=== PATIENT | male | born 1965 | race Caucasian/White ===

== ENCOUNTER 2020-06-21 06:10 | Inpatient (IN) | payer BC, SELFPAY ==
[2020-06-21] VITALS (7 sets, daily range): BP systolic 89–120; BP diastolic 55–74
[~2020-06-21] VITALS: Ht 170.2 cm; Wt 83.9 kg
--- NOTE | 2020-06-21 06:17 | NUR ---
PT BIBA BLS. TAKEN TO BED 9
[2020-06-21] MEDS ORDERED: HYDROmorphone PFS 2 MG/ML SYR IVP ONE (06:20)
[2020-06-21] MEDS ORDERED: ONDANSETRON 4 MG/2 ML VIAL IVP ONE (06:20)
--- NOTE | 2020-06-21 06:27 | NUR ---
EKG PERFORMED AT BEDSIDE. EKG READS SINUS TACHYCARDIA @ 111
--- NOTE | 2020-06-21 06:30 | NUR ---
Pt c/o generalized body pain and right shoulder pain x1 year but worsened recently. Denies previous medical hx, states he has not seen a doctor regarding condition. Denies taking any medications. NKA. A/Ox4, ambulatory with steady gait.
[2020-06-21] MEDS ORDERED: AZITHROMYCIN 500 MG in DEXTROSE 5% 250 ML IV ONE (06:40)
[2020-06-21] MEDS: NACL 0.9% 2,000 ML IV SCH ×2 (06:52→07:36)
[2020-06-21 06:55] LABS: MEAN CORPUSCULAR HEMOGLOBIN 29 pg (27-31); MEAN CORPUSCULAR HGB CONC 33 g/dL (33-37); MEAN CORPUSCULAR VOLUME 89.4 fL (80-94); PLATELET COUNT (AUTO) 81 K/uL (140-450); RED CELL DISTRIBUTION WIDTH 16.9 % (11.6-13.7)
--- NOTE | 2020-06-21 06:55 | NUR ---
PATIENT VERBALIZED UNABLE TO GIVE URINE SAMPLE AT THIS TIME. URINAL LEFT AT BEDSIDE.
[2020-06-21] MEDS ORDERED: VANCOMYCIN PER PHARMACY MC PRN ×3 (07:05→09:35)
[2020-06-21] MEDS ORDERED: cefTRIAXone 1,000 MG VIAL ONE (07:10)
[2020-06-21] MEDS ORDERED: VANCOMYCIN 1GM/DEXT 5% PREMIX 200 ML IV ONE (07:10)
--- NOTE | 2020-06-21 07:16 | NUR ---
REPORT AND CONTINUATION OF CARE RECEIVED FROM TAMMIE FULLER.
[2020-06-21 07:21] LABS: WHITE BLOOD COUNT (AUTO) 25.9 K/uL (4.8-10.8)
[2020-06-21 07:22] LABS: HEMATOCRIT 64.4 % (36-52); HEMOGLOBIN 21.2 g/dL (12.0-18.0)
[2020-06-21 07:28] LABS: LYMPHOCYTES % (MANUAL) 4 % (20-46); MONOCYTES % (MANUAL) 4 % (5-12)
[2020-06-21 07:29] LABS: EOSINOPHILS % (MANUAL) 3 % (0-4)
--- NOTE | 2020-06-21 07:30 | NUR ---
PT SITTING IN POSITION OF COMFORT. EDUCATION COUNSELOR IN PLACE. PT STATES PAIN 2/10. NO OBVIOUS DISTRESS NOTED. IV ABX INITATED. BED LOCKED IN LOWEST POSITION, SIDE RAILS X 1, CALL LIGHT IN REACH.
[2020-06-21 07:37] LABS: ANION GAP 21.5 (8-16); CARBON DIOXIDE 21.1 mmol/L (21-32); POTASSIUM 5.6 mmol/L (3.5-5.1); TOTAL BILIRUBIN 6.3 mg/dL (0.0-1.0)
[2020-06-21 07:46] LABS: CREATININE 5.2 mg/dL (0.6-1.3)
[2020-06-21] MEDS ORDERED: VANCOMYCIN 1,000 MG VIAL ONE (07:58)
[2020-06-21 07:59] LABS: PROTHROMBIN TIME 20.3 secs (10.8-13.4)
--- NOTE | 2020-06-21 08:01 | NUR ---
SERVICE DISMANTLER DISCONNECTED PT FROM IVF AND POSTDOCTORAL RESEARCH ASSOCIATE AND TRANSPORTED VIA WHEELCHAIR TO CT.
--- NOTE | 2020-06-21 08:15 | NUR ---
PT RETURNED FROM CT, PLACED BACK ONTO SKILL LABOR AND IVF. IV ABX INITIATED AT THIS TIME.
--- NOTE | 2020-06-21 08:25 | NUR ---
PT STATES HE IS UNABLE TO PROVIDE URINE SAMPLE RIGHT NOW. PT STATES LAST URINATION 06/20 0400. ERMD MADE AWARE, STRAIGHT CATH ORDER PLACED.
--- NOTE | 2020-06-21 08:30 | NUR ---
PT SITTING IN POSITION OF COMFORT. AGRICULTURAL SPECIALIST AND OXYGEN IN PLACE @ 2L VIA N/C. NO DISTRESS NOTED, ALL PT NEEDS MET AT THIS TIME. BED LOCKED IN LOWEST POSITION, SIDE RAILS X 1, CALL LIGHT IN REACH.
--- NOTE | 2020-06-21 08:39 | NUR ---
PT STATES HE DOES NOT WANT A STRAIGHT CATHETHER PERFORMED AT THIS TIME; PT VERBALIZED HE WILL TRY TO PROVIDE A URINE SAMPLE. SIDE RAIL LOWERED AND ASSISTED PT TO THE LEFT SIDE WITH URINAL PROVIDED. STAINED GLASS PAINTER IN PLACE. BED LOCKED IN LOWEST POSITION, SIDE RAILS X 1, CALL LIGHT IN REACH.
--- NOTE | 2020-06-21 08:45 | NUR ---
PT PRESENTS SITTING IN BED WITH URINAL ATTEMPTING TO PROVIDE URINE SAMPLE. NO URINE NOTED IN URINAL; PT STATES HE NEEDS AN ADDITIONAL 5 MINUTES. PRIVACY PROVIDED. DIRECTOR OF GROUP SALES IN PLACE. BED LOCKED IN LOWEST POSITION, SIDE RAILS X 1, CALL LIGHT IN REACH. PT ACKNOWLEDGED NEED FOR STRAIGHT CATH IF HE IS UNABLE TO PROVIDE URINE.
--- NOTE | 2020-06-21 08:55 | NUR ---
PT REQUESTED TO UTILIZE RESTROOM FOR URINE. PT ASSISSTED VIA WHEELCHAIR. UNABLE TO OBTAIN URINE AT THIS TIME
[2020-06-21] MEDS ORDERED: VANCOMYCIN 1GM/DEXT 5% PREMIX 200 ML IV SCH (09:00)
--- NOTE | 2020-06-21 09:10 | NUR ---
PT UNABLE TO URINATE AT THIS TIME. PT PLACED ONTO WHEELCHAIR AND ASSISTED BACK ONTO BED. WOOD HANDLER AND IV ABX CONTINUED. BED LOCKED IN LOWEST POSITION, SIDE RAILS X 1, CALL LIGHT IN REACH. PT ADVISED OF NEED FOR GODINEZ CATHETER.
--- NOTE | 2020-06-21 09:15 | NUR ---
PT SITTING IN POSITION OF COMFORT. CORRECTIVE THERAPY AIDE TEACHER AND OXYGEN IN PLACE @ 2L VIA N/C. NO DISTRESS NOTED, ALL PT NEEDS MET AT THIS TIME. BED LOCKED IN LOWEST POSITION, SIDE RAILS X 1, CALL LIGHT IN REACH.
[2020-06-21] MEDS ORDERED: NACL 0.9% 1,000 ML IV SCH (09:25)
[2020-06-21] MEDS ORDERED: LORazepam 2 MG/ML VIAL IM/IVP PRN (09:25)
[2020-06-21] MEDS ORDERED: DOCUSATE SODIUM 100 MG GELCAP PO PRN (09:25)
[2020-06-21] MEDS ORDERED: MORPHINE SULFATE 2 MG/ML SYR IVP PRN (09:25)
[2020-06-21] MEDS ORDERED: ZOLPIDEM 5 MG TAB PO PRN (09:25)
[2020-06-21] MEDS ORDERED: ONDANSETRON 4 MG/2 ML VIAL IVP PRN (09:25)
--- NOTE | 2020-06-21 10:02 | NUR ---
DR. SOLIZ AT BEDSIDE
--- NOTE | 2020-06-21 10:13 | NUR ---
# 16 FR Bailey catheter with 10 ml utilizing sterile technique. Immediate return of 425 ml CLEAR/DARK RED urine noted. Bedside drainage bag placed below level of bladder. Urine sample collected and sent to lab. Pt tolerated procedure WELL.
--- NOTE | 2020-06-21 10:15 | NUR ---
DONY, MEDICAL STUDENT IS EVALUATING PATIENT AT BEDSIDE.
--- NOTE | 2020-06-21 10:20 | NUR ---
PT RESTING WITH BOTH EYES OPEN. OCCUPATIONAL HEALTH RN AND OXYGEN REMAINS IN PLACE @ 2L VIA N/C. NO OBVIOUS DISTRESS NOTED. ALL PT NEEDS MET AT THIS TIME. BED LOCKED IN LOWEST POSITION, SIDE RAILS X 1, CALL LIGHT IN REACH.
[2020-06-21] MEDS ORDERED: SODIUM ZIRCONIUM CYCLOSILICATE 10 GM POWD.PACK PO SCH (10:25)
[2020-06-21 10:27] LABS: FREE T4 (FREE THYROXINE) 1.5 ng/dL (0.76-1.46); MAGNESIUM 2.3 mg/dL (1.8-2.4); THYROID STIMULATING HORMONE 2.28 uIU/mL (0.34-3.74)
--- NOTE | 2020-06-21 10:46 | NUR ---
LAB AT BEDSIDE
[2020-06-21] MEDS ORDERED: AZITHROMYCIN 500 MG INJ VIAL IV ONE (10:52)
--- NOTE | 2020-06-21 11:00 | NUR ---
ATTEMPTED TO CONTACT TAMMIE HILARIO FOR REPORT. NO ANSWER AT THIS TIME.
--- NOTE | 2020-06-21 11:14 | NUR ---
PT RESTING WITH BOTH EYES OPEN. INSPECTOR WATCH ASSEMBLY AND OXYGEN REMAINS IN PLACE @ 2L VIA N/C. NO OBVIOUS DISTRESS NOTED. PT ADVISED OF STATUS TO BE TRANSPORTED TO TELEMETRY SHORTLY. ALL PT NEEDS MET AT THIS TIME. BED LOCKED IN LOWEST POSITION, SIDE RAILS X 1, CALL LIGHT IN REACH.
--- NOTE | 2020-06-21 11:14 | NUR ---
YAMINI, CHARGE NURSE MADE AWARE OF ATTEMPTED CONTACTS WITH YANELIS. CHARGE NURSE ADVISED OF 10 MINUTE ETA FOR REPORT.
[2020-06-21 11:16] LABS: CHOL/HDL RATIO 6.8 (1-4.5)
[2020-06-21 11:24] LABS: BILIRUBIN,URINE 2+ (NEGATIVE); BLOOD, URINE 2+ (NEGATIVE); COLOR,URINE BROWN (YELLOW); LEUKOCYTE ESTERASE ,URINE NEGATIVE (NEGATIVE); NITRITE, URINE POSITIVE (NEGATIVE); UGLUCOSE NEGATIVE (NEGATIVE)
--- NOTE | 2020-06-21 11:27 | NUR ---
ATTEMPTED TO CONTACT YANELIS VIA TELEPHONE, NO ANSWER AT THIS TIME.
--- NOTE | 2020-06-21 11:35 | NUR ---
CHARGE NURSE ADVISED TO PROVIDE REPORT TO TAMMIE HILARIO AT BEDSIDE.
[2020-06-21 11:52] LABS: APPEARANCE,URINE HAZY (CLEAR)
[2020-06-21 11:53] LABS: URINE AMORPHOUS URATE 1+ /HPF (None Seen); WBC,URINE 0-5 /HPF (0-5)
[2020-06-21 11:56] LABS: BARBITURATE, URINE NEGATIVE ng/ml (NEG <=200); BENZODIAZEPINE, URINE NEGATIVE ng/mL (NEG <=200); CANNABINOID, URINE NEGATIVE ng/mL (NEG <=50); COCAINE, URINE NEGATIVE ng/mL (NEG <=300); OPIATE, URINE NEGATIVE ng/mL (NEG <=2000); PHENCYCLIDINE SCREEN,URINE NEGATIVE ng/mL (NEG <=25)
--- NOTE | 2020-06-21 12:00 | NUR ---
RECEIVED PT FROM ER NURSE, PT IS AOX4, AMBULATED TO THE BED, GODINEZ CATHETER IN PLACE, IV LINE NOTED ON THE RT AC G. 20 WITH AZITHROMYCIN INFUSING, ON O2 2L NC SATURATING AT 93%, PT DENIES PAIN AND NO SIGN OF DISTRESS NOTED AND WILL CONTINUE TO MONITOR PT.
--- NOTE | 2020-06-21 12:00 | NUR ---
Patient will be admitted to care of DR. SMART. Admited to TELEMETRY. Will go to room 116. Belongings list completed. Report (bedside) to TAMMIE HILARIO outside room 116.
--- NOTE | 2020-06-21 12:30 | NUR ---
MRSA SWAB DONE TO PT AND SAMPLE WAS SENT TO LAB.
[2020-06-21 12:51] LABS: HEMATOCRIT 58.9 % (36-52); HEMOGLOBIN 19.3 g/dL (12.0-18.0); MEAN CORPUSCULAR HEMOGLOBIN 29 pg (27-31); MEAN CORPUSCULAR HGB CONC 33 g/dL (33-37); MEAN CORPUSCULAR VOLUME 89.4 fL (80-94); PLATELET COUNT (AUTO) 63 K/uL (140-450); RED BLOOD CELL COUNT(AUTO) 6.59 MIL/uL (4.20-6.10); RED CELL DISTRIBUTION WIDTH 17.1 % (11.6-13.7); WHITE BLOOD COUNT (AUTO) 20.9 K/uL (4.8-10.8)
--- NOTE | 2020-06-21 13:00 | NUR ---
PT IS DESATURATING TO 87% AND O2 WAS INCREASED TO 5L NC AND DR. SMART WAS INFORMED, PT IS SATURATING AT 92%, WILL CONTINUE TO MONITOR PT.
[2020-06-21 13:45] LABS: LYMPHOCYTES % (MANUAL) 3 % (20-46); MONOCYTES % (MANUAL) 4 % (5-12)
[2020-06-21 13:47] LABS: EOSINOPHILS % (MANUAL) 4 % (0-4)
[2020-06-21 13:57] LABS: URINE TOTAL PROTEIN 178.3 mg/dL (0-12)
--- NOTE | 2020-06-21 14:51 | NUR ---
RECEIVED A CRITICAL LAB VALUE OF LACTIC ACID 3.2, DR. SMART WAS INFORMED.
[2020-06-21] MEDS: DEXT 5% / NACL 0.9% 500 ML IV SCH ×2 (16:05→20:09)
[2020-06-21] MEDS ORDERED: PHYTONADIONE 10 MG in NACL 0.9% 50 ML IV SCH (16:30)
--- NOTE | 2020-06-21 16:35 | NUR ---
PT WAS TRANSFERRED TO ICU FOR CLOSE MONITORING PRE MD ORDER. REPORT WAS GIVEN TO RNKALANI, PT'S V/S ARE BP IS 98/57, TEMP IS 98, PULSE IS 111, RESPIRATION IS 20 AND O2 SATURATION IS AT 91%, PT DENIES PAIN AND NO SIGN OF DISTRESS NOTED.
--- NOTE | 2020-06-21 16:40 | NUR ---
TRANSFER OF CARE REPORT RECEIVED FROM YANELIS CHO. PATIENT VITAL SIGNS ARE BP: 89/54, HR: 99 SP02: 90% 5L NC. PATIENT DENIES ANY DIZZINESS OR WEAKNESS AT THIS TIME. NO PAIN REPORTED. PATIENT RESPIRATIONS ARE EVEN AND SLIGHTLY LABORED. PATIENT STATES HE IS HAVING ACID REFLUX PAINS. 20G TO RIGHT AC WITH D5 0.9NS RUNNING AT 150ML. GODINEZ CATHETER TO GRAVITY WITH DARK BROWN/RED URINE. SKIN IN TACT. AAOX4. GCS 15.
[2020-06-21] MEDS ORDERED: ASPIRIN 81 MG TAB.CHEW PO SCH (17:00)
--- NOTE | 2020-06-21 17:00 | NUR ---
MD SMART MADE AWARE REGARDING BP OF 89/55, NO FURTHER ORDERS AT THIS TIME
[2020-06-21] MEDS: LACTULOSE 20 GM/30 ML UDC PO SCH ×2 (17:21→20:22)
--- NOTE | 2020-06-21 18:57 | NUR ---
NAOMIE SMART 500ML D5 0.9 NS BOLUS, ORDER CARRIED OUT AT THIS TIME
[2020-06-21] MEDS ORDERED: DEXT 5% / NACL 0.9% 500 ML IV SCH (19:00)
--- NOTE | 2020-06-21 19:30 | NUR ---
RECEIVED BEDSIDE REPORT FROM DAY RN. PT IS AAOX4. RESPIRATIONS SLIGHTLY LABORED ON NC 5L SAT 90%. LUNG SOUNDS ARE GEORGE DIMINISHED. IV ON RC 20G CURRENTLY BOLUS OF D5NS INFUSING FOR BP IN LOW 90S AND HIGH 80S. AFTER BOLUS WILL CONT WITH D5 0.9NS AT 150ML. GODINEZ CATHETER TO GRAVITY WITH DARK BROWN/RED URINE. SKIN IN TACT. PT IS SKIN IS WARM TO TOUCH APPEARS JAUNDICE AND YELLOW SCLERA. PT DX SEPSIS RENAL FAILURE AND LIVER MASS. TRACY IS NEG PCR PENDING. POC REVIEWED WITH PT. SAFETY MEASURES ARE IN PLACE. CALL LIGHT IS WITHIN REACH. WILL CONTINUE TO MONITOR.
[2020-06-21] MEDS ORDERED: PIPERACILLIN/TAZOBACTAM 2.25 GM VIAL IV ONE (20:12)
[2020-06-21] MEDS: PIPERACILLIN/TAZOBACTAM 2.25 GM in DEXTROSE 5% 50 ML IV SCH (20:22)
[2020-06-21] MEDS: SENNA 8.6 MG TAB PO SCH (20:22)
--- NOTE | 2020-06-21 20:22 | NUR ---
SAI MEDICATION GIVEN PER ORDERS. MED EDUCATION GIVEN. BP 96/66 HR 111 SAT 91% RR 24.
[2020-06-21] MEDS ORDERED: metroNIDAZOLE 250 MG/NS PREMIX 50 ML IV SCH (21:00)
--- NOTE | 2020-06-21 21:00 | NUR ---
INCREASED LABORED BREATHING SAT 90% PT PLACED ON OXIMIZER AT 8L. BP REMAINS LOW 96/61 HR 102. MAP>60 ALL NEEDS MET. CALL LIGHT IS WITHIN REACH.
--- NOTE | 2020-06-21 21:30 | NUR ---
DR HARDY IN TO ASSESS PT. NEW ORDER TO D/C FLAGYL.
--- NOTE | 2020-06-21 21:42 | NUR ---
CALLED PICC LINE SERVICE AT [phone] LEFT VOICE MAIL WITH PATIENT NAME STEPHEN BONILLA ROOM # 130A FROM [facility] ORDER FOR PICC LINE PLACEMENT. CONSENT IS IN CHART AND LEFT OUR CALL BACK NUMBER.
--- NOTE | 2020-06-21 21:50 | NUR ---
FAMILY AT WINDOW SIDE, DAUGHTER, GF AND EX . ALL NEEDS MET.
[2020-06-21] MEDS: ACETAMINOPHEN 325 MG TAB PO PRN (22:01)
--- NOTE | 2020-06-21 22:10 | NUR ---
PAGED DR GIVENS FOR LOW BP 88/56 HR 104 PT'S BP BEEN IN HIGH 80S - LOW 90S PT WAS ALREADY GIVEN 500ML BOLUS WITH SOME IMPROVEMENT. PER MD CALL ER MD TO PLACE CENTRAL LINE AND BEGIN LEVO. WILL PAGED ER
--- NOTE | 2020-06-21 23:05 | NUR ---
DR MEDINA CAME AND EVALUATED PATIENT. CURRENT BP 96/55 HR 103 PER MD MONITOR BP IF IT DROPS BELOW SBP 90 OR IF MAP <60 CAN CALL TO INSERT CENTRAL LINE. OTHERWISE PT HAS ORDER FOR PICC LINE IN AM. WILL CONTINUE TO MONITOR.
[2020-06-21] MEDS ORDERED: NOREPINEPHRINE 8 MG in DEXTROSE 5% 250 ML IV PRN (23:25)
[2020-06-22] VITALS (21 sets, daily range): BP systolic 82–149; BP diastolic 46–88
[2020-06-22] MEDS: HYDROcodone/APAP 5/325 MG 1 TAB TAB PO PRN ×3 (01:13→23:07)
--- NOTE | 2020-06-22 01:13 | NUR ---
ADMIN PRN NORCO FOR PAIN. BP 96/60 HR 101. ALL SAFETY MEASURES ARE IN PLACE. CALL LIGHT IS WITHIN REACH.
[2020-06-22] MEDS: DEXT 5% / NACL 0.9% 500 ML IV SCH ×8 (01:36→22:52)
[2020-06-22] MEDS ORDERED: ALBUTEROL SULFATE/IPRATROPIU 3 ML SOL IH PRN (02:30)
--- NOTE | 2020-06-22 04:00 | NUR ---
VITAL SIGNS ARE STABLE BP REMAINS IN MID 90S MAP >60. PT RESTING IN BED. CALL LIGHT IS WITHIN REACH.
[2020-06-22] MEDS ORDERED: PIPERACILLIN/TAZOBACTAM 2.25 GM VIAL IV ONE (04:18)
[2020-06-22] MEDS: PIPERACILLIN/TAZOBACTAM 2.25 GM in DEXTROSE 5% 50 ML IV SCH ×3 (04:22→21:00)
--- NOTE | 2020-06-22 05:25 | NUR ---
PATIENT IS SITTING AT THE EDGE OF THE BED. ASSISTED PATIENT BACK INTO BED PT REMAINS ON OXIMIZER 10L SAT WELL 94%. ALL NEEDS MET. CALL LIGHT IS WITHIN REACH.
--- NOTE | 2020-06-22 06:05 | NUR ---
FOUND PT OFF FROM OXYMIZER. AND SITTING AT THE EDGE OF THE BED. SPO2 IN 50s. PLACED OXYMIZER BACK ON. SPO2 93%. RN NOTIFIED WILL CONTINUE TO MONITOR PT.
[2020-06-22 06:26] LABS: ANION GAP 19.1 (8-16); CARBON DIOXIDE 18.6 mmol/L (21-32); POTASSIUM 4.7 mmol/L (3.5-5.1)
[2020-06-22 06:32] LABS: MAGNESIUM 2.2 mg/dL (1.8-2.4); PHOSPHORUS 6.9 mg/dL (2.5-4.9)
--- NOTE | 2020-06-22 06:50 | NUR ---
PATIENT WITH ONE SMALL BM OCCULT BLOOD COLLECTED AND SENT TO LAB.
[2020-06-22 07:03] LABS: HEMOGLOBIN 19.4 g/dL (12.0-18.0); MEAN CORPUSCULAR HEMOGLOBIN 29 pg (27-31); MEAN CORPUSCULAR HGB CONC 32 g/dL (33-37); MEAN CORPUSCULAR VOLUME 90.9 fL (80-94); RED BLOOD CELL COUNT(AUTO) 6.61 MIL/uL (4.20-6.10); WHITE BLOOD COUNT (AUTO) 24.5 K/uL (4.8-10.8)
[2020-06-22] MEDS ORDERED: DEXT 5% / NACL 0.9% 500 ML IV SCH (07:05)
[2020-06-22 07:25] LABS: CREATININE 5.2 mg/dL (0.6-1.3)
--- NOTE | 2020-06-22 07:30 | NUR ---
GAVE BEDSIDE REPORT TO DAY RN. PT IN GUARDED CONDITION.
[2020-06-22] MEDS: NACL 0.9% 500 ML IV SCH ×2 (07:40→08:40)
--- NOTE | 2020-06-22 08:00 | NUR ---
RECEIVED BEDSIDE REPORT FROM TUBE SPLICER RN. PATIENT RESTING IN BED, AXOX4, APPEARS LETHARGIC. NO COMPLAINTS OF PAIN OR DISCOMFORT. ON 10L NC VIA OXIMIZER. RIGHT 20G AC PERIPHERAL IV, IVF RUNNING. GODINEZ CATHETER IN PLACE DRAINING. CHG CARE COMPLETE. WILL CONTINUE TO MONITOR.
[2020-06-22 08:08] LABS: AFP (TUMOR MARKER) <0.9 ng/mL (0.0-8.3)
[2020-06-22] MEDS ORDERED: VANCOMYCIN 1,000 MG in DEXTROSE 5% 250 ML IV SCH (09:00)
[2020-06-22] MEDS ORDERED: ASPIRIN 81 MG TAB.CHEW PO SCH (09:00)
[2020-06-22 09:11] LABS: PLATELET COUNT (AUTO) 42 K/uL (140-450)
[2020-06-22 09:12] LABS: LYMPHOCYTES % (MANUAL) 1 % (20-46); MONOCYTES % (MANUAL) 3 % (5-12)
--- NOTE | 2020-06-22 09:16 | NUR ---
PATIENT HAS BEEN SCREENED AND CATEGORIZED HIGH NUTRITION RISK. PATIENT WILL BE SEEN WITHIN 1-2 DAYS OF ADMISSION. 06/22/[address]
[2020-06-22] MEDS: LACTULOSE 20 GM/30 ML UDC PO SCH ×4 (09:32→17:52)
[2020-06-22] MEDS: SENNA 8.6 MG TAB PO SCH ×2 (09:33→21:00)
[2020-06-22 10:06] LABS: HEPATITIS A ANTIBODY IGM Negative (Negative); HEPATITIS B CORE AB TOTAL Negative (Negative); HEPATITIS B SURFACE ANTIBODY Non Reactive (.); HEPATITIS B SURFACE ANTIGEN Negative (Negative)
--- NOTE | 2020-06-22 10:23 | NUR ---
PER Jen BASS IF PT REALLY NEEDS IT, IT IS OK TO INSERT PICC.
--- NOTE | 2020-06-22 10:55 | NUR ---
MADE AWARE TO DR. GIVENS, PTS PLATELETS 42 AND HELD ASA. PER D/C ASA AND ADMIN. 1UNIT OF PLATELETS.
--- NOTE | 2020-06-22 11:39 | NUR ---
SOCIAL WORK NOTE: Patient's Orientation Unable To Assess Information Provided By NINFA RIVER - SIGNIFICANT OTHER Comments SW WAS UNABLE TO MEET PATIENT AT BEDSIDE. SW COMPLETED ASSESSMENT WITH PATIENT'S SIGNIFICANT OTHER. Mixing Machine Attendant, Realtionship and Phone Number NINFA RIVER SIGNIFICANT OTHER [phone] [facility] Power of Machine Quilt Stuffer No Does Patient Have a POLST No Identifying Problems No Social Work Triggers Is A Social Work Consult Needed No Mandate Report Filed No Explanation Of Identifying Problems PATIENT IS A 54-YEAR-OLD MALE ADMITTED FOR NEW ONSET RENAL FAILURE. PATIENT HAS NO REPORTED PMHX. Admitted From Home Pre-Admission Level Of Functioning Status Independent/Ambulatory Prior Resources/Services Used In Last 12 Months No Prior Resources Used Prior DME No Prior DME Used Dialysis Comments N/A Living Situation Apartment Lives W/Significant Other Patient Had Caregiver No Home Support No Caregiver Issues Financial Issues No Known Financial Issue Referral To The Financial Counselor Needed No Factors/Needs No D/C Needs Identified Pt/Rep Participated In Discharge Plan Yes Patient/Family Agress With Discharge Plan Yes Discharge Plan Comments TENTATIVE DISCHARGE PLAN IS FOR PATIENT TO RETURN HOME. DC Plan Status Initiated Addendum: 07/06/20 at 1006 by Samuel Kurtz SS MITESH CONTACTED PATIENT'S DAUGHTER, MARISOL REGARDING FAMILY MEETING [phone]. MARISOL REQUESTED A PHONE CALL FROM PHYSICIAN INSTEAD OF FAMILY CONFERENCE. MITESH NOTIFIED DR. GIVENS.
[2020-06-22] MEDS ORDERED: ALBUMIN HUMAN 25% 100 ML IV ONE (11:45)
[2020-06-22] MEDS: MIDODRINE 5 MG TAB PO SCH ×2 (12:37→18:41)
--- NOTE | 2020-06-22 13:00 | NUR ---
MEDICATIONS ADMINISTERED PER MD ORDERS. US ABD COMPLETED. PT IN NO PAIN AT THIS MOMENT.
[2020-06-22 13:13] LABS: ALBUMIN 1.4 g/dL (3.4-5.0); TOTAL BILIRUBIN 8.2 mg/dL (0.0-1.0)
[2020-06-22] MEDS ORDERED: PHYTONADIONE 10 MG in NACL 0.9% 50 ML IV SCH (14:00)
--- NOTE | 2020-06-22 16:26 | NUR ---
06/22/20 RD INITIAL ASSESSMENT COMPLETED PLEASE REFER TO NUTRITION ASSESSMENT UNDER CARE ACTIVITY FOR ESTIMATED NUTRITIONAL NEEDS. 1. CONTINUE NPO 2. PENDING FURTHER GI WORK 3. CONSIDER NUTRITION SUPPORT 4. RD TO FOLLOW-UP 2-3 DAYS, HIGH RISK NIKKI ESPINO, RD
--- NOTE | 2020-06-22 16:28 | NUR ---
SPOKE TO OPT SIGNIFICANT OTHER, PT NEXT OF KIN FROM FACE SHEET, BILL RIVER REGARDING DR ORDER FOR FFP AND PLATELETS, PER SIGNIFICANT OTHER TO CALL PT DAUGHTER MARISOL @ [phone] REGARDING THIS. BUT SIGNIFICANT OTHER IS CONSENTING TO THE PROCEDURE. CALLED DAUGHTER MARISOL, PER DAUGHTER SHE IS CONSENTING FOR PT TO RECEIVE FFP AND PLATELETS, ALL QUESTIONS ANSWERED.
[2020-06-22 16:30] LABS: FERRITIN 5370 ng/mL (30 - 400)
--- NOTE | 2020-06-22 17:05 | NUR ---
PT V/S BEGAN TO DECREASE LOWEST READING WAS 87/52, BEGAN LEVOPHED GTT TO 2MCG/MIN. WILL CONTINUE TO MONITOR.
[2020-06-22] MEDS: NOREPINEPHRINE 4 MG in DEXTROSE 5% 250 ML IV PRN (17:09)
--- NOTE | 2020-06-22 18:58 | NUR ---
IV PLASMA STARTED AND ADMINISTERED PER MD ORDERS. V/S STABLE AND TOLERATING WELL. WILL CONTINUE TO MONITOR.
--- NOTE | 2020-06-22 19:19 | NUR ---
BEDSIDE REPORT GIVEN TO LEGAL OFFICER RN FOR CONTINUITY OF CARE.
--- NOTE | 2020-06-22 19:19 | NUR ---
RECEIVED PATIENT FROM AM SHIFT NURSE FOR CONTINUITY OF CARE. PATIENT IS CONFUSED, DIFFICULT TO ORIENT. RESPIRATIONS TACHYPNEIC, LABORED. CONTINUES ON O2 10L VIA OXYMIZER, O2SAT 94%. NO C/O PAIN. SKIN WARM, DRY. SALINE LOCK TO RIGHT AC 20G. IV SITE TO RIGHT HAND 22G PATENT/INTACT, INFUSING FLUIDS WELL. IV SITE TO LEFT HAND 22G PATENT/INTACT, INFUSING PLASMA AT THIS TIME. ABDOMEN ROUND, NONTENDER. BOWEL SOUNDS ACTIVE X4 QUADRANTS. GODINEZ CATHETER PATENT WITH YELLOW URINE DRAINING TO GRAVITY. SAFETY PRECAUTIONS IN PLACE. FREQUENT ROUNDS BY ALL STAFF.
--- NOTE | 2020-06-22 19:45 | NUR ---
PATIENT COMPLETED PLASMA, NO REACTION NOTED. PATIENT IS STILL CONFUSED. UNABLE TO REORIENT. SAFETY PRECAUTIONS IN PLACE.
--- NOTE | 2020-06-22 21:00 | NUR ---
PICC LINE NURSE INSERTED RIGHT UPPER ARM PICC. READY TO USE.
--- NOTE | 2020-06-22 21:01 | NUR ---
FOUND PT WITH OXYMIZER OFF. PLACED PT BACK ON O2 13l. SPO2 94%. PT IS IN NO RESPIRATORY DISTRESS AT THIS TIME. WILL CONTINUE TO MONITOR PT.
--- NOTE | 2020-06-22 22:00 | NUR ---
PATIENT CONTINUES TO BE CONFUSED AND RESTLESS. UNABLE TO REORIENT. REMOVES OXYMIZER AND PULLED OUT IV TO LEFT HAND. RESTRAINTS PLACED AT THIS TIME.
[2020-06-23] VITALS (26 sets, daily range): BP systolic 90–144; BP diastolic 35–108
[2020-06-23] MEDS: DEXT 5% / NACL 0.9% 500 ML IV SCH ×3 (01:05→07:44)
[2020-06-23] MEDS: PIPERACILLIN/TAZOBACTAM 2.25 GM in DEXTROSE 5% 50 ML IV SCH ×3 (05:00→21:23)
--- NOTE | 2020-06-23 05:31 | NUR ---
PER LAB, PLATELETS LEFT [facility] AT 0448. AWAITING ARRIVAL AT THIS TIME.
[2020-06-23] MEDS: HYDROcodone/APAP 5/325 MG 1 TAB TAB PO PRN (06:06)
[2020-06-23] MEDS: MIDODRINE 5 MG TAB PO SCH ×3 (06:11→18:39)
[2020-06-23 06:31] LABS: PROTHROMBIN TIME 24.5 secs (10.8-13.4)
[2020-06-23 06:33] LABS: ANION GAP 22.5 (8-16); CARBON DIOXIDE 17.4 mmol/L (21-32); POTASSIUM 4.9 mmol/L (3.5-5.1)
--- NOTE | 2020-06-23 07:20 | NUR ---
RECEIVED HANDOFF FROM CENTER LEAD CONSULTANT RN. PT IS A&OX1, CONFUSED. PT IS ON 10 L ON THE OXIMIZER SATURATING 91%. PT IS SR ON THE MONITOR AT THIS TIME. PT HAS BEEN NPO SINCE MIDNIGHT DUE TO HIDA SCAN AND US WITH LIVER BIOPSY. PT HAS ACCESS AT R AC 20 G AND BERTO PICC LINE. D5NS IS RUNNING AT 150 ML/HR. GODINEZ CATHETER IS IN PLACE, DRAINING CLEAR TEA COLORED URINE. PT HAS ON BILATERAL SOFT WRIST RESTRAINTS DUE TO PULLING OUT LINES AND TUBES. HOB IS 30 DEG IN LOW LOCKED POSITION. WILL CONTINUE TO MONITOR CLOSELY.
--- NOTE | 2020-06-23 08:10 | NUR ---
NUCLEAR MED TECH FRANKLIN HERE TO TAKE PT FOR HIDA SCAN. FRANKLIN WAS UNAWARE THAT PT WAS ON 10 L OXIMIZER AND IS UNCERTAIN OF WHETHER PT IS STABLE ENOUGH TO UNDERGO SCAN. DR. CARDONA ALSO CAME BY TO SEE PT AND STATED THAT "PATIENT IS NOT STABLE ENOUGH TO HAVE BIOPSY." MANAGER OF INVESTIGATIONS MADE AWARE, AWAITING DECISION OF DR. GIVENS.
[2020-06-23 08:14] LABS: CREATININE 5.3 mg/dL (0.6-1.3)
--- NOTE | 2020-06-23 08:28 | NUR ---
DR. EWING BY TO SEE PT. AGREED THAT PT MAY NOT BE STABLE ENOUGH TO UNDERGO HIDA SCAN AND LIVER BIOPSIES AT THIS TIME. HE STATED THAT WE SHOULD AWAIT DR. GIVENS'S OPINION.
--- NOTE | 2020-06-23 08:45 | NUR ---
DR. SOLIZ SEEING PT. RECEIVED ORDER TO HOLD FLUIDS. AWARE OF ELEVATED BUN AND CREATININE. WILL SPEAK TO FAMILY.
--- NOTE | 2020-06-23 08:49 | NUR ---
PER NUCLEAR MED TECH FRANKLIN, KEEP PT NPO UNTIL DECISION IS MADE ABOUT HIDA SCAN
[2020-06-23] MEDS: SENNA 8.6 MG TAB PO SCH ×2 (08:52→21:23)
[2020-06-23] MEDS: LACTULOSE 20 GM/30 ML UDC PO SCH ×4 (08:52→21:23)
[2020-06-23] MEDS ORDERED: VANCOMYCIN 1,000 MG in DEXTROSE 5% 250 ML IV SCH (09:00)
[2020-06-23 09:32] LABS: HEMATOCRIT 55.9 % (36-52); HEMOGLOBIN 18.1 g/dL (12.0-18.0); MEAN CORPUSCULAR HEMOGLOBIN 29 pg (27-31); MEAN CORPUSCULAR HGB CONC 32 g/dL (33-37); RED BLOOD CELL COUNT(AUTO) 6.14 MIL/uL (4.20-6.10); WHITE BLOOD COUNT (AUTO) 39.8 K/uL (4.8-10.8)
[2020-06-23 09:33] LABS: RED CELL DISTRIBUTION WIDTH 17.2 % (11.6-13.7)
[2020-06-23 09:34] LABS: PLATELET COUNT (AUTO) 25 K/uL (140-450)
[2020-06-23 09:37] LABS: LYMPHOCYTES % (MANUAL) 2 % (20-46); MONOCYTES % (MANUAL) 3 % (5-12)
--- NOTE | 2020-06-23 09:43 | NUR ---
MEDICATIONS ADMINISTERED PER ORDER EXCEPT PO MEDS HELD. PT HAD LARGE TARRY BLACK/GREEN BOWEL MOVEMENT. PT TURNED, CLEANED, SHEETS AND GOWN CHANGED. PT REPOSITIONED. WILL CONTINUE TO MONITOR.
--- NOTE | 2020-06-23 10:22 | NUR ---
DR. GIVENS HERE TO SEE PT. MADE AWARE OF ALLDRClark GIVENS WILL SPEAK TO FAMILY AND SEE HOW AGGRESSIVELY THEY WANT TO PURSUE TREATMENT. HIDA SCAN ON HOLD UNTIL THEY HAVE MADE DECISION. WILL CONTINUE TO MONITOR. Addendum: 06/23/20 at 1057 by Akanksha Michaud RN RN MADE AWARE OF CRITICAL LAB VALUES
--- NOTE | 2020-06-23 10:57 | NUR ---
SPOKE TO DAUGHTER MARISOL, RECEIVED CONSENT FOR HEMODIALYSIS AND HEMODIALYSIS CATHETER PLACEMENT. DAUGHTER PLANS TO VISIT WITH HER BROTHER THIS AFTERNOON AROUND 1:30 PM. TECHNICAL SPEC AWARE.
--- NOTE | 2020-06-23 11:06 | NUR ---
SPOKE TO DR. GIVENS. HIDA SCAN AND LIVER BIOPSY STILL ON HOLD FOR TODAY. WILL CONTACT DR. MARIOLA SOLIZ FOR TIMELINE OF HEMODIALYSIS CATH WELL INFUSION OF PLATELETS. Addendum: 06/23/20 at 1112 by Akanksha Michaud RN RN DR. GIVENS ALREADY INFORMED IR OF DECISION TO HOLD OFF.
--- NOTE | 2020-06-23 11:19 | NUR ---
LEFT MESSAGE FOR DR. BOYD TO CALL BACK SO HE CAN BE UPDATED ON PTS CONDITION/WHETHER OR NOT HIDA SCAN CAN BE DONE PORTABLY.
--- NOTE | 2020-06-23 11:45 | NUR ---
STILL AWAITING CALL BACK FROM DR. BOYD AND DR. SOLIZ
--- NOTE | 2020-06-23 12:07 | NUR ---
PROVIDED GIRLFRIEND NINFA WITH UPDATE ON PT'S STATUS. ALSO CALLED BACK DAUGHTER MARISOL AND TOLD HER THAT DR. SOLIZ HAD NOT YET PAGED BACK. SHE PLANS TO COME VISIT IN 1-2 HOURS
--- NOTE | 2020-06-23 12:29 | NUR ---
PO MEDICATIONS HELD DUE PT BEING UNABLE TO FOLLOW DIRECTIONS OR SWALLOW. MITODRINE HELD DUE TO BP 131/70. ZOSYN ADMINISTERED. Addendum: 06/23/20 at 1231 by Akanksha Michaud RN RN WILL NOTIFY DR. BOYD, AWAITING CALL BACK.
--- NOTE | 2020-06-23 12:44 | NUR ---
PAGED DR. MON ABOUT PT'S HR A FIB. AWAITING CALL BACK
--- NOTE | 2020-06-23 12:55 | NUR ---
ECHOCARDIOGRAM TECH AT BEDSIDE.
--- NOTE | 2020-06-23 13:04 | NUR ---
GIRLFRIEND NINFA ALSO COMING TO VISIT PT AT 2:30.
[2020-06-23 13:39] LABS: TRANSFERRIN 109 mg/dL (200 - 370)
--- NOTE | 2020-06-23 14:07 | NUR ---
WHILE ON LUNCH, DR. SOLIZ RETURNED CALL AND INSTRUCTED TO INFUSE PLATELETS BEFORE HD CATH PLACEMENT. CALLED LAB TO NOTIFY AND WAS INFORMED BY JOJO IN BLOOD BANK THAT BLOOD BANK IS NO LONGER STOCKING PLATELETS AND THAT THEY MUST BE ORDERED AND WILL TAKE 3-4 HOURS FOR THEM TO BE DELIVERED. PAGED AND TEXTED DR. SOLIZ AND AWAITING ORDERS.
--- NOTE | 2020-06-23 14:17 | NUR ---
DAUGHTER AND SON FINISHED VISITING AT BEDSIDE
--- NOTE | 2020-06-23 14:27 | NUR ---
ABG RESULTS GIVEN TO NO CHANGES AT THIS TIME.
--- NOTE | 2020-06-23 14:34 | NUR ---
PER RT TROY, ABG RESULTS REPORTED TO DR. EWING, NO ORDERS RECEIVED.
--- NOTE | 2020-06-23 14:37 | NUR ---
GIRLFRIEND NINFA HERE TO SEE PT, NINFA TO TAKE PT'S BELONGINGS HOME WITH HER.
--- NOTE | 2020-06-23 15:24 | NUR ---
DR. BOYD AT BEDSIDE SEEING PT. SPOKE TO FAMILY ABOUT RISKS OF LIVER DRAINAGE, FAMILY WILLING TO TAKE RISK FOR PROCEDURE. DR. BOYD CALLED IR AND THEY ARE COMING TO ICU OVERFLOW. INFORMED DR. BOYD AND DR. GIVENS THAT PLATELETS WERE NOT AVAILABLE ON STOCK AND HAD BEEN ORDERED STAT. DR. GIVENS TO CALL DR. SOLIZ REGARDING DELAYING HD CATHETER PLACEMENT. [facility] ORDERED STAT AND MENDER HAND CALLED. AWAITING DRAW FOR [facility]. 2 UNITS PLASMA ORDERED WELL PER DR. BOYD'S ORDERS.
--- NOTE | 2020-06-23 15:41 | NUR ---
MANAGER MAIL AT BEDSIDE DRAWING [facility]
--- NOTE | 2020-06-23 15:50 | NUR ---
SPOKE TO ZAHRAA FROM BLOOD BANK. PLATELETS HAVE BEEN ORDERED THROUGH [facility], BUT WILL TAKE APPROXIMATELY 2 HOURS TO ARRIVE THEY ARE AWAITING A PRESSURE TEST OPERATOR. PLASMA IS THAWING AT THIS TIME AND WILL TAKE 1 HOUR.
[2020-06-23 15:54] LABS: HEMATOCRIT 57.2 % (36-52); HEMOGLOBIN 18.4 g/dL (12.0-18.0); MEAN CORPUSCULAR HEMOGLOBIN 29 pg (27-31); MEAN CORPUSCULAR HGB CONC 32 g/dL (33-37); MEAN CORPUSCULAR VOLUME 90.3 fL (80-94); RED BLOOD CELL COUNT(AUTO) 6.33 MIL/uL (4.20-6.10); RED CELL DISTRIBUTION WIDTH 17.3 % (11.6-13.7)
--- NOTE | 2020-06-23 15:54 | NUR ---
DISCHARGE PLANNING: PER DR. BOYD, PATIENT WILL BE NEEDING HLOC TRANSFER. DAVID COPELAND OF [facility] [phone] MADE AWARE. PER DAVID DARDEN, THEY ARE CONTRACTED WITH [facility], [facility], [facility] AND [facility]. CONTACTED PATIENT'S PARTNER NINFA AT [phone] TO DISCUSS PLAN AND IS IN AGREEMENT. SHE STATED SHE IS THE ONE MAKING MEDICAL DECISIONS FOR THE PATIENT WITH THE PATIENT'S FATHER ON THE BACKGROUND. ALL CONCERNS AND QUESTIONS ANSWERED. REFERRAL SENT TO [facility], [facility], AND [facility]. CONTACTED [facility] TRANSFER CENTER AT [phone], ABLE TO SPEAK TO WILL. PROVIDED WILL OF ALL THE INFORMATION NEEDED. SHE STATED SHE WILL PUT ME ON HOLD TO SPEAK TO THEIR ADMITTING NURSE. WILL GOT BACK TO ME STATING THAT THEY HAVE TO DECLINE THE CASE DUE TO THEY DO NOT HAVE A TELE BED AND ASIDE FROM THAT THEY DO NOT HAVE AN ARTIST [employer] IR AND GI PHYSICIANS. Addendum: 06/26/20 at 1443 by Jessica Bangura DISCUSSED DURING BED HUDDLE, NO NEED TO TRANSFER TO [facility] PER DR. GIVENS. DR. GIVENS REMINDED TO CANCEL THE ORDER. WILL FOLLOW UP. Addendum: 06/26/20 at 1446 by Jessica Bangura MADE A PHONE TO CALL TO DAVID COPELAND OF [email or web address] TO PROVIDE UPDATES, NO ANSWER. LEFT MESSAGE Addendum: 06/26/20 at 1530 by Jessica Bangura RECEIVED A CALL BACK FROM DAVID COPELAND OF [email or web address]. UPDATED HER OF THE PATIENT'S CONDITION. SHE STATED STAY IS AUTHORIZED UNTIL YESTERDAY AND TODAY'S STAY IS PENDING CLINICAL REVIEW. SHE ALSO CONFIRMED THAT RECEIVED CLINICALS FOR TODAY AND IN THE PROCESS OF REVIEWING. Addendum: 06/27/20 at 1340 by Jessica Bangura CM PER FANNY MARRERO TO DC [facility] TRANSFER ORDER. ORDER DC'D. Addendum: 06/30/20 at 1446 by Jessica Bangura CM DAVID COPELAND OF [facility] UPDATED OF THE PATIENT'S CONDITION. PER DAVID COPELAND STAY IS APPROVED UNTIL 06/29/2020 AND HARD COPY WAS FAXED. PER MIN, SHE WILL APPROVE TODAY'S STAY WELL WITH THE VERBAL UPDATES I PROVIDED HER. SHE ALSO MENTIONED THAT ONCE PATIENT IS STABLE TO JUST GO AHEAD AND FAXED THEM THE ORDER. FAX NUMBER [phone]. Addendum: 07/03/20 at 1641 by Ronel Luke RN DC PLANNING: CALLED MIN HERNANDEZ AT [facility] [phone] STATED SHE APPROVED ICU STATUS UNTIL 07/02 AND WILL REVIEW TODAY'S CLINICAL AND WILL APPROVE. CM TO FOLLOW Addendum: 07/05/20 at 1136 by Ronel Luke RN DC PLANNING: CALLED [facility] SPOKE WITH XAVIER COLMENARES STATED THE CASE LOOKS LIKE MORE TERTIARY CARE AND THEY DON'T HAVE LIVER SPECIALIST. CALLED [facility] SPOKE WITH RUBIN STATED THEY SPOKE WITH LIANET LAST NIGHT AND DENIES THE CASE BECAUSE THEY DON'T HAVE ICU BED. [facility] SPOKE WITH TESSA THEY ARE REVIEWING AND NEEDS TRANSFER AGREEMENT BACK PAPER. FAXED TO ALIVIA [facility]ON[facility] , [place] AND [facility] [place]. CM TO FOLLOW Addendum: 07/05/20 at 1212 by Ronel Luke RN DC PLANNING: CALLED [facility] SPOKE WITH MARGO BOYD PT'S CLINICAL AND PROVIDE THE PHONE NUMBER FOR ATTENDING AND GI FOR PEER TO PEER. CM TO FOLLOW Addendum: 07/05/20 at 1616 by Ronel Luke RN DC PLANNING CALLED [facility] TRANSFER [place] [phone] WITH MICHELA PEER TO PEER IS DONE WITH DR GIVENS AND DR DUNCAN Stone. IS ACCEPTING PATIENT. AWAITING FOR BED AVAILABLE PROVIDE THE UNIT AND HOUSE SUP NUMBER AND PLACE THE TRANSPORT WILL CALL WITH [facility]. CALLED [facility] SPOKE WITH XAVIER COLON THE SURGEON IS IN OR, AND WILL FOLLOW UP. NOTIFIED [facility] AND NURSE KHADRA .CM TO FOLLOW Addendum: 07/05/20 at 1621 by Flores Early CM DC VIDEO PRODUCTION SPECIALIST: SPOKE TO HILLARY AT [facility] [phone] TO SET UP WILL CALL TRANSPORTATION. WHEN PATIENT IS READY FOR DC CONTACT [facility] TO ACTIVATE WILL CALL. Addendum: 07/05/20 at 1646 by Ronel Luke RN DC PLANNING: RECEIVED A CALL FROM [facility] [phone] SPOKE WITH TRANSFER CENTER PROVIDE DR GIVENS'S NUMBER AND CLINICALS. PER MICHELA STATED NEEDS AUTH FROM THE INSURANCE AND WILL CALL BACK. PROVIDE THE HOUSE SUP AND THE UNIT NUMBER. CALLED PT'S DAUGHTER [phone] SPOKE WITH [facility] NOTIFIED THE HIGHER LEVEL ORDER PER [facility] OK TO TRANSFER TO ANY ACCEPTING FACILITIES. IF PATIENT STAYS HILARY WOODARD REQUESTING A FAMILY MEETING WITH THE DR. HERNANDEZ TO FOLLOW Addendum: 07/05/20 at 1651 by Flores Early CM DC VIDEO PRODUCTION SPECIALIST: SPOKE TO KELSEY AT [facility] [phone] TO REQUEST AUTH FOR TRANSFER. HE STATED THAT THE ACCEPTING HOSPITAL SHOULD BE THE ONE TO CALL TO REQUEST AUTH ONCE THE PATIENT IS ADMITTED. Addendum: 07/06/20 at 0836 by Ronel Luke RN DC PLANNING: PER SOFIYA THURMAN [facility] DENIED THE CASE. RECEIVED A CALL FROM [facility] SPOKE WITH DIALYSIS EQUIPMENT TECHNICIAN DR YU SOLIZ AND PLANNING PEER TO PEER WITH ATTENDING. PROVIDE DR GIVENS'S NUMBER. [id number] NEEDS AUTHORIZATION TO ACCEPT PATIENT, LEFT A MESSAGE TO MIN HERNANDEZ AT [facility]. CM TO FOLLOW Addendum: 07/06/20 at 1423 by Ronel Luke RN DC PLANNING RECEIVED A CALL FROM [facility] SPOKE WITH VIMAL COLON [facility] ACCEPTED PATIENT NEEDS LATEST COVID TEST. RAPID COVID TEST DONE AWAITING FOR THE RESULT. CM TO FOLLOW Addendum: 07/06/20 at 1616 by Flores Early CM DC VIDEO PRODUCTION SPECIALIST: CONTACTED [facility] TO NOTIFY THEM THAT THE HOSPITAL WILL BE [facility] AND NOT [facility]. PENDING BED NUMBER AND ACCEPTING DOCTOR. PER DAVID DARDEN AT [facility] SHE STATED THAT THEY ARE NOT CONTRACTED WITH [facility] BUT THEY ARE THE ONLY AMBULANCE THAT SERVICE OUR AREA. SHE SAID THAT [facility] CAN BILL THEM OR CONTACT THE PRE CERTIFICATION LINE [phone] TO GET AUTH. Addendum: 07/06/20 at 1649 by Ronel Luke RN DC PLANNING: FAXED THE COVID RESULT TO [facility] AWAITING FOR BED NUMBER ARRANGED TRANSPORT WITH [facility] WILL CALL. PER DR OLIVER NICOLAS [place] [facility] [place] FAXED ALL THE PAPERWORK WHO EVER CALLS FIRST TO TAKE PATIENT. NOTIFIED RN AND CUCA Rodas CM TO FOLLOW
--- NOTE | 2020-06-23 16:06 | NUR ---
SPOKE TO DR. BOYD ABOUT PLATELETS AND PLASMA NOT BEING PREPARED YET, HE SAID IT WAS OKAY TO CONTINUE. UPDATED DAUGHTER MARISOL ABOUT PROCEDURE AND SHE IS OKAY WIHT TAKING RISKS.
--- NOTE | 2020-06-23 16:40 | NUR ---
DR. SPAIN AT BEDSIDE TO PERFORM LIVER BIOPSY GUIDED BY US. SEE CHART FOR NOTES.
[2020-06-23] MEDS ORDERED: MIDAZOLAM 2 MG/2 ML VIAL ONE (16:42)
[2020-06-23] MEDS ORDERED: LIDOCAINE MPF 1% 5 ML ONE (16:44)
[2020-06-23 17:03] LABS: PLATELET COUNT (AUTO) 14 K/uL (140-450); WHITE BLOOD COUNT (AUTO) 40.7 K/uL (4.8-10.8)
[2020-06-23 17:38] LABS: LYMPHOCYTES % (MANUAL) 5 % (20-46); MONOCYTES % (MANUAL) 2 % (5-12)
--- NOTE | 2020-06-23 17:45 | NUR ---
PLASMA TRANSFUSION STARTED. VSS.
--- NOTE | 2020-06-23 17:54 | NUR ---
DAUGHTER MARISOL UPDATED ON PTS STATUS
--- NOTE | 2020-06-23 18:15 | NUR ---
DR. SOLIZ AT BEDSIDE FOR HD CATHETER PLACEMENT
--- NOTE | 2020-06-23 18:38 | NUR ---
FIRST UNIT OF PLASMA FINISHED.
--- NOTE | 2020-06-23 18:48 | NUR ---
CALLED BLOOD BANK FOR SECOND UNIT OF PLASMA. PER BLOOD BANK ONLY 1 UNIT WAS ORDERED. UPON REVIEW ORDER SAYS "QUANTITY 2." REORDERED ANOTHER UNIT OF PLASMA PER BLOOD BANK'S REQUEST. WILL CONTINUE TO MONITOR.
--- NOTE | 2020-06-23 19:32 | NUR ---
HANDOFF GIVEN TO ASSESSMENT TECHNICIAN TAMMIE LOUIS FOR CONTINUITY OF CARE. ENDORSED ADMINISTRATION 1 UNIT OF PLASMA AND 1 UNIT OF PLATELETS.
--- NOTE | 2020-06-23 19:35 | NUR ---
RECEIVED REPORT FORM DAY SHIFT RN; PT OBTUNDED; GRUNTING SOUNDS NOTED. PT AROUSES TO STERNAL RUB. RR 30S ACCESSORY MUSCLE USE. DIMINISHED BREATH SOUNDS. UNCONTROLLED AFIB 150-160S, THREADY PALPABLE PULSES, SBP 100S, LEVOPHED DRIP RUNNING. ABD SOFT NON DISTENDED. GODINEZ CATH IN PLACE; DARK GARRY MINIMAL OUTPUT NOTED. SKIN INTACT, PICC LINE TO RUPPER ARM NOTED. RIJ DESTINY CATH IN PLACE. BED LOCKED IN LOWEST POSITION. WILL CONTINUE TO OBSERVE.
[2020-06-23] MEDS: ROCURONIUM 50 MG/5 ML VIAL IV SCH ×2 (19:45→20:10)
[2020-06-23] MEDS: ETOMIDATE 20 MG/10 ML VIAL IVP SCH ×2 (19:45→20:10)
--- NOTE | 2020-06-23 19:58 | NUR ---
NOTIFIED RT AND ERMD ABOUT PT INCREASED WORK OF BREATHING, RR 30-40S, DIMINISHED BREATH SOUNDS. ERMD ORDERED 20 ETOMIDATE, 50 MG ROCURONIUM TO PREMEDICATE FOR INTUBATION. 8.0 MM ETT PLACED @ 25 CM @ LIP BY DR LILLY. OGT IN PLACE. CXR ORDERED. VSS. WILL CONTINUE TO OBSERVE.
--- NOTE | 2020-06-23 20:00 | NUR ---
MAKING ROUNDS IN ICU OVERFLOW AND MISSY, DOG GROOMER REPORTED THAT THE PATIENT WAS JUST INTUBATED. DR TETE GIVENS ALSO IN THE UNIT. VERIFIED WITH MISSY AND DR GIVENS IF PATIENT STILL NEED TO BE TRANSFERRED TO [facility], BOTH OF THEM STATED THAT THERE'S NO NEED BECAUSE THE LIVER BIOPSY WAS DONE HERE IN THE HOSPITAL ALREADY.
[2020-06-23] MEDS ORDERED: fentaNYL citrate 1 MG in NACL 0.9% 80 ML IV PRN (20:10)
[2020-06-23] MEDS ORDERED: MIDAZOLAM MDV 50 MG in NACL 0.9% 40 ML IV PRN ×2 (20:10→20:40)
--- NOTE | 2020-06-23 21:13 | NUR ---
APROX 20:04 PT WAS INTUBATED FOR INCREASED WOB. PT WAS INTUBATED W/ 8.O ETT SECURED @ 25CM. CXR WAS ORDERED FOR PLACEMENT. PT PLACED ON VC 500 +5, f20 100%. 2100 ABG IS UNOBTAINABLE AT THIS TIME X2. FLASH WAS OBTAINED 2X W/ NO BLOOD FLOW. WILL ATTEMPT AT A LATER TIME & WILL CONTINUE TO MONITOR. SPO2 IS 97%. DR EVANS AWARE AND REQUESTING ABG IN AM
[2020-06-23] MEDS ORDERED: DIGOXIN 0.25 MG/ML AMP IV SCH (21:35)
[2020-06-23] MEDS ORDERED: DILTIAZEM 125 MG in DEXTROSE 5% 100 ML IV SCH (21:35)
[2020-06-23] MEDS ORDERED: DILTIAZEM 25 MG/5 ML VIAL IVP ONE (21:35)
[2020-06-23] MEDS ORDERED: DILTIAZEM 125 MG/25 ML VIAL IV ONE (21:59)
--- NOTE | 2020-06-23 22:50 | NUR ---
2ND UNIT PLATELET GIVEN TO PT; NO ADVERSED RXN. VSS WILL CONTINUE TO OBSERVE.
[2020-06-24] VITALS (33 sets, daily range): BP systolic 91–116; BP diastolic 46–57
--- NOTE | 2020-06-24 00:15 | NUR ---
PT TURNED AND REPOSITIONED; VAP ORAL CARE DONE. FLACC 0 WILL CONTINUE TO MONITOR.
[2020-06-24] MEDS: PIPERACILLIN/TAZOBACTAM 2.25 GM in DEXTROSE 5% 50 ML IV SCH ×3 (05:46→20:24)
[2020-06-24] MEDS: MIDODRINE 5 MG TAB PO SCH ×2 (06:57→12:29)
[2020-06-24] MEDS ORDERED: CRUSHER, PILL MC ONE (07:16)
[2020-06-24 07:30] LABS: HEMATOCRIT 51.5 % (36-52); HEMOGLOBIN 16.7 g/dL (12.0-18.0); MEAN CORPUSCULAR HEMOGLOBIN 29 pg (27-31); MEAN CORPUSCULAR HGB CONC 33 g/dL (33-37); MEAN CORPUSCULAR VOLUME 89.4 fL (80-94); RED BLOOD CELL COUNT(AUTO) 5.76 MIL/uL (4.20-6.10); RED CELL DISTRIBUTION WIDTH 17.5 % (11.6-13.7)
--- NOTE | 2020-06-24 07:30 | NUR ---
PATIENT RECEIVED ON CARDIZEM AT 15, LEVO AT 10, VERSED AT 2, AND FENTANYL AT 1. PATIENT HR AFIB IN 90S. SBP IN 90S. ETT TO VENT. SUCTIONED WITH MINIMAL AMOUNT WHITE SECRETIONS. PATIENT WITH LIVER DRAIN WITH BLOODY OUTPUT AND CLOTS NOTED. OGT TO LIS WITH NOTED COFFEE GROUND OUTPUT. ON BUE RESTRAINTS. RESTRAINTS RELEASED TO ASSESS SKIN AND CIRCULATION. BILATERAL RADIAL PULSES PALPABLE AND CAP REFILL AT 3 SECONDS. RESTRAINT REAPPLIED. BLE NOTED TO BE DUSKY AND COOL. CAP REFILL SLOW AT 5 SECONDS. PATIENT ON 90% FIO2 WITH O2 SAT AT 96%. BREATHING APPEARS REGULAR AND UNLABORED. PATIENT WITH F/C WITH SCANT GARRY COLORED URINE. WITH RIGHT IJ DESTINY AND BERTO PICC LINE. PICC FLUSHED AND ASPIRATED WITHOUT ANY NOTED ISSUES. WILL CONTINUE TO MONITOR AND ATTEND TO PATIENT NEEDS.
[2020-06-24 07:52] LABS: ANION GAP 22.7 (8-16); CARBON DIOXIDE 17.2 mmol/L (21-32); POTASSIUM 5.9 mmol/L (3.5-5.1)
--- NOTE | 2020-06-24 08:00 | NUR ---
CARDIZEM DRIP EMPTY AND SO NOT RUNNING AT THIS TIME. PHARMACY CALLED TO REQUEST CARDIZEM DRIP WELL OTHER IV DRIP MEDICATIONS. PATIENT HR REMAINS AFIB 90-106.
--- NOTE | 2020-06-24 08:13 | NUR ---
AT THIS TIME NOTED PATIENT CONVERTED BACK TO NORMAL SINUS RHYTHM. HR 77. AT THIS TIME DID NOT RESTART CARDIZEM DRIP DUE TO HR MEETING GOAL < 100 AND SUSTAINED AT NORMAL SINUS RHYTHM. WILL CONTINUE TO MONITOR.
[2020-06-24] MEDS: LACTULOSE 20 GM/30 ML UDC PO SCH ×3 (08:19→14:15)
[2020-06-24 08:21] LABS: CREATININE 6.1 mg/dL (0.6-1.3)
[2020-06-24] MEDS: SENNA 8.6 MG TAB PO SCH (08:21)
[2020-06-24] MEDS: NOREPINEPHRINE 4 MG in DEXTROSE 5% 250 ML IV PRN ×2 (08:21→17:25)
[2020-06-24] MEDS: fentaNYL citrate 2.5 MG in NACL 0.9% 200 ML IV PRN (08:34)
--- NOTE | 2020-06-24 08:50 | NUR ---
CALLED DR. SOLIZ'S OFFICE TO NOTIFY OF LAB VALUES AND SPOKE TO WILL. SHE STATED DR. FRANCO FARM MARKETER AND WILL BE PAGED. AWAITING CALL BACK AT THIS TIME.
--- NOTE | 2020-06-24 09:10 | NUR ---
DR. FRANCO CALLED BACK AND WAS NOTIFIED OF CURRENT PATIENT CONDITION WELL LABS. HEMODIALYSIS ORDERED FOR TODAY. STATED TO HAVE HD NURSE TO CALL HIM WITH HD ORDERS.
--- NOTE | 2020-06-24 09:15 | NUR ---
CALLED AND SPOKE TO SHIV, HD NURSE, TO NOTIFY THAT PATIENT HAS HD ORDERS FOR TODAY.
--- NOTE | 2020-06-24 09:30 | NUR ---
DR. PIZANO MADE ROUNDS. UPDATED ON CURRENT PATIENT CONDITION, LABS, MEDS. AWARE THAT PATIENT FOR HD TODAY PER DR. FRANCO.
[2020-06-24 09:46] LABS: PLATELET COUNT (AUTO) 30 K/uL (140-450); WHITE BLOOD COUNT (AUTO) 41.6 K/uL (4.8-10.8)
[2020-06-24 09:47] LABS: LYMPHOCYTES % (MANUAL) 2 % (20-46); MONOCYTES % (MANUAL) 5 % (5-12)
--- NOTE | 2020-06-24 10:30 | NUR ---
DR. REESE MADE ROUNDS. UPDATED ON PATIENT CURRENT CONDITION, MEDS, LABS. AWARE THAT PATIENT FOR HD TODAY. ORDERED TO START TUBE FEEDING IF OK WITH GI DOCTOR. SCDS ORDERED AND PROTONIX IV ORDERED.
--- NOTE | 2020-06-24 10:45 | NUR ---
PATIENT'S DAUGHTER, MARBELLA, CALLED. UPDATED ON CURRENT PATIENT CONDITION. AWARE PATIENT WAS INTUBATED LAST NIGHT AND CURRENT ON VENTILATOR. AWARE PATIENT ON BLOOD PRESSURE SUPPORT MEDICATIONS WELL SEDATION MEDICATION. NOTIFIED HER THAT PATIENT HAS ORDERS TO RECEIVE HEMODIALYSIS TODAY. STATED WILL CALL BACK IN AFTERNOON TO GET ANOTHER UPDATE ON PATIENT.
--- NOTE | 2020-06-24 14:05 | NUR ---
DR. BOYD MADE ROUNDS. MADE AWARE OF PATIENT CURRENT CONDITION, MEDS, LABS, VENT SETTINGS. AWARE OF CBC RESULTS. AWARE PATIENT TO HAVE HD FOR TODAY. AWARE OF LIVER DRAINAGE OUTPUT AND THAT IT IS BLOODY WITH CLOTS. HE STATED HE WILL ORDER IVF AND TUBE FEEDINGS TO START. STATED MAY FLUSH LIVER DRAIN WITH STERILE NS TO PREVENT DRAIN FOR CLOGGING.
[2020-06-24] MEDS ORDERED: ALBUMIN HUMAN 25% 150 ML IV SCH (14:20)
--- NOTE | 2020-06-24 15:21 | NUR ---
HEMODIALYISIS NURSE AT BEDSIDE. HD STARTED AT THIS TIME.
--- NOTE | 2020-06-24 15:22 | NUR ---
PATIENT SON, STEPHEN , CALLED AND UPDATE GIVEN.
--- NOTE | 2020-06-24 15:31 | NUR ---
PER HD NURSE, CATHETER NOT WORKING WELL AND HE HAS TO STOP HD. HE STATED HE TRIED TO GET A HOLD OF DR. FRANCO BUT UNABLE TO. I CALLED AND SPOKE TO CHIN AT DR. EDUARDO OFFICE TO HAVE HIM PAGE. AWAITING CALL BACK AT THIS TIME.
--- NOTE | 2020-06-24 15:36 | NUR ---
DR. FRANCO CALLED BACK AND SPOKE TO HD NURSE. AWARE CATHETER NOT WORKING. I SPOKE TO HIM AND ASKED IF HE WANTED TO GIVE ANYTHING FOR K LEVEL 5.9. STATED MAY GIVE KAYEXALATE, HOWEVER IF NOT AVAILABLE MAY GIVE LOKELMA X 2 DOSES.
--- NOTE | 2020-06-24 16:02 | NUR ---
LOKELMA X [address] MARIOLA SOLIZ MADE AWARE THAT HD CATHETER NOT WORKING AT THIS TIME AND HD STOPPED. AWARE. NO NEW ORDERS AT THIS TIME.
[2020-06-24] MEDS: ERYTHROMYCIN ETHYLSUCCINATE SUSP 200 MG/5 ML UDC PO SCH (16:25)
[2020-06-24] MEDS ORDERED: SODIUM ZIRCONIUM CYCLOSILICATE 10 GM POWD.PACK PO SCH ×2 (16:30→20:00)
[2020-06-24] MEDS: ACETAMINOPHEN 325 MG TAB PO PRN (16:57)
--- NOTE | 2020-06-24 17:26 | NUR ---
PATIENT TEMP 101.2 VIA AXILLARY. COLD BATH GIVEN, TYLENOL ADMINISTERED, AND ICE PACKS PLACED ON PATIENT.
--- NOTE | 2020-06-24 19:21 | NUR ---
END OF SHIFT PATIENT REMAINS WITHOUT ANY NOTED S/S PAIN SOB OR DISTRESS. REMAINS ON LEVO AT 6, VERSED AT 2, AND FENTANYL AT 1. PATIENT TURNED AND REPOSITIONED Q2. ORAL CARE DONE Q4. LIVER DRAIN WITHOUT ANY NOTED ISSUES. FLUSHED PER MD ORDER. PICC LINE REMAINS WITHOUT ANY NOTED ISSUES. FLUSHED AND ASPIRATED WTIHOUT PROBLEMS. LOKELMA WAS GIVEN PER MD ORDER. BM X 1, DARK GREENISH COLOR. PATIENT'S SON CALLED AGAIN IN AFTERNOON AND UPDATE GIVEN. TUBE FEEDING STARTED AT 10 ML/HR PER MD ORDER. AT THIS TIME PATIENT APPEARS COMFORTABLE WITHOUT ANY NOTED S/S PAIN SOB OR DISTRESS.
--- NOTE | 2020-06-24 19:30 | NUR ---
RECEIVED PATIENT FROM AM SHIFT NURSE FOR CONTINUITY OF CARE. RASS -3. ETT TO VENT. VENT SETTINGS: AC/VC FIO2 70% RR 20 PEEP 5. RESPIRATIONS EVEN, UNLABORED. O2SAT 95%. S1/S2 AUSCULTATED. SKIN WARM, DRY. RIGHT UPPER ARM PICC NOTED, INFUSING VERSED, FENTANYL AND LEVOPHED. SALINE LOCK TO RIGHT AC 20G PATENT/INTACT. RIGHT IJ DESTINY CATHETER NOTED, DRESSING CLEAN/DRY AND INTACT. FLACC 0. ABDOMEN SOFT, NONTENDER. BOWEL SOUNDS ACTIVE X4 QUADRANTS. LIVER DRAIN PATENT WITH DARK RED DRAINAGE NOTED. OGT NOTED, CONTINUES ON ENTERAL FEEDING, TOLERATING WELL. NO RESIDUAL NOTED. HOB UP 30 DEGREES. GODINEZ CATHETER PATENT. PLAN OF CARE DISCUSSED. SAFETY PRECAUTIONS IN PLACE.
--- NOTE | 2020-06-24 19:48 | NUR ---
REACHED OUT TO DR. SOLIZ REGARDING WHEN HE WILL COME TO REPLACE DESTINY CATHETER FOR HD. AWAITING RESPONSE.
--- NOTE | 2020-06-24 21:20 | NUR ---
DUE MEDS GIVEN. PATIENT'S FAMILY VISITING THROUGH THE WINDOW. ALL NEEDS ANTICIPATED AND MET. WILL CONTINUE TO MONITOR.
--- NOTE | 2020-06-24 23:31 | NUR ---
INCONTINENT CARE RENDERED. TURNED AND REPOSITIONED FOR COMFORT AND TO MAINTAIN SKIN INTEGRITY.
[2020-06-25] VITALS (33 sets, daily range): BP systolic 94–130; BP diastolic 48–65
--- NOTE | 2020-06-25 01:00 | NUR ---
TURNED AND REPOSITIONED. VAP ORAL CARE RENDERED.
--- NOTE | 2020-06-25 03:00 | NUR ---
INCONTINENT CARE RENDERED. TURNED AND REPOSITIONED.
[2020-06-25] MEDS: PIPERACILLIN/TAZOBACTAM 2.25 GM in DEXTROSE 5% 50 ML IV SCH ×3 (05:00→20:19)
--- NOTE | 2020-06-25 05:30 | NUR ---
DUE MEDS GIVEN. SUCTIONED THIN WHITE SECRETIONS. PATIENT REPOSITIONED FOR COMFORT.
[2020-06-25 06:16] LABS: ANION GAP 22.6 (8-16); CARBON DIOXIDE 16.8 mmol/L (21-32); POTASSIUM 5.4 mmol/L (3.5-5.1)
[2020-06-25 06:17] LABS: PROTHROMBIN TIME 23.2 secs (10.8-13.4)
[2020-06-25 06:21] LABS: MAGNESIUM 2.7 mg/dL (1.8-2.4)
[2020-06-25] MEDS ORDERED: NOREPINEPHRINE 4 MG/4 ML VIAL IV ONE (06:27)
[2020-06-25] MEDS: NOREPINEPHRINE 4 MG in DEXTROSE 5% 250 ML IV PRN (06:31)
--- NOTE | 2020-06-25 06:59 | NUR ---
RECEIVED INTUBATED PT WITH A 8.0 ETT SECURED @25 TEETH/GUM ON VENT. SETTINGS A/C VC 20, VT 500, PEEP 5 AND FIO2 TITRATED TO 60%. PT SUCTIONED OBTAINED SMALL AMOUNT OF THICK CLEAR/WHITE SECRETIONS, AIRWAY IS PATENT AND ETT IS SECURE WITH ANCHOR FAST DEVICE. VENT IS PLUGGED INTO A RED OUTLET WITH ALARMS ON AND FUNCTIONING. PT SEDATED AT THIS TIME NOT IN ANY DISTRESS. WILL CONTINUE TO MONITOR.
--- NOTE | 2020-06-25 07:10 | NUR ---
REPORT GIVEN BY TAMMIE HOOPER PT SEDATED W/ PATENT CONTRAPTIONS.NOT IN ANY FORM OF DISTRESS.02 SAT 96% .
[2020-06-25 07:19] LABS: CREATININE 6.9 mg/dL (0.6-1.3)
--- NOTE | 2020-06-25 07:30 | NUR ---
ENDORSED PATIENT TO AM SHIFT NURSE FOR CONTINUITY OF CARE.
[2020-06-25] MEDS: MIDAZOLAM MDV 100 MG in NACL 0.9% 80 ML IV PRN (08:15)
[2020-06-25] MEDS: ERYTHROMYCIN ETHYLSUCCINATE SUSP 200 MG/5 ML UDC PO SCH ×3 (09:00→17:00)
[2020-06-25] MEDS: PANTOPRAZOLE 40 MG INJ VIAL IVP SCH (09:00)
[2020-06-25] MEDS: LACTULOSE 20 GM/30 ML UDC PO SCH (09:00)
[2020-06-25 10:01] LABS: HEMATOCRIT 49.6 % (36-52); HEMOGLOBIN 16.1 g/dL (12.0-18.0); MEAN CORPUSCULAR HEMOGLOBIN 29 pg (27-31); MEAN CORPUSCULAR HGB CONC 33 g/dL (33-37); MEAN CORPUSCULAR VOLUME 88.5 fL (80-94); PLATELET COUNT (AUTO) 25 K/uL (140-450); WHITE BLOOD COUNT (AUTO) 44.8 K/uL (4.8-10.8)
[2020-06-25 10:02] LABS: LYMPHOCYTES % (MANUAL) 6 % (20-46); MONOCYTES % (MANUAL) 2 % (5-12)
--- NOTE | 2020-06-25 10:15 | NUR ---
VISITED AND EXAMINED BY DR. BOYD AND SPOKE TO PT'S DAUGHTER OVER THE PHONE REGARDING PT'S CONDITION. AND EXPLAINED AN ERCP PROCEDURE TO DAUGHTER BUT DID NOT GIVE A CONSENT TO GO ON W/ THE PROCEDURE. W/ ORDER NOTED AND CARRIED OUT. PT'S OUTPUT ON THE LIVER CATHETER IS BLOODY AND DR. BOYD AWARE.
[2020-06-25] MEDS ORDERED: SODIUM ZIRCONIUM CYCLOSILICATE 10 GM POWD.PACK PO SCH (11:30)
[2020-06-25 12:10] LABS: ALBUMIN 1.6 g/dL (3.4-5.0); BILIRUBIN,DIRECT 2.7 mg/dL (0.0-0.3); TOTAL BILIRUBIN 3.5 mg/dL (0.0-1.0)
--- NOTE | 2020-06-25 12:10 | NUR ---
PT' S BROTHER ESCORTED TO BEDSIDE BY SURVEY RESEARCH CENTER DIRECTOR FOR A BRIEF VISIT
--- NOTE | 2020-06-25 12:19 | NUR ---
DR VALENTINE AT BEDSIDE FOR HD CATH REPLACEMENT
--- NOTE | 2020-06-25 15:26 | NUR ---
06/25/20 RD FOLLOW UP COMPLETED PLEASE REFER TO NUTRITION PROGRESS NOTE UNDER CARE ACTIVITY FOR ESTIMATED NUTRITION NEEDS. RD RECOMMENDATIONS: 1. RECOMMEND CHANGE TF TO NEPRO @30MLS/HR (1296KCALS/77%, 58GMPROTEIN/108%) 2. CONSIDER INCREASE TF RATE TO NEPRO @45MLS/HR WHEN PT STARTS HEMODIALYSIS 3. RD TO FOLLOW-UP 2-3 DAYS, HIGH RISK JULIANA MARISCAL MBA, RD
--- NOTE | 2020-06-25 17:11 | NUR ---
PT REMAINS ON DOCUMENTED VENT SETTINGS. PT NOT IN ANY DISTRESS AT THIS TIME. ETT IS SECURE WITH A PATENT AIRWAY. PT RECEIVING DIALYSIS AT THIS TIME. VENT ALARMS REMAIN ON AND FUNCTIONING.
--- NOTE | 2020-06-25 17:45 | NUR ---
PT'S MONITOR SCOPE WENT INTO RAPID ATRIAL FIB. PAGED FOR DR. MON BUT THE EXCHANGE SAID THE RAILROAD SWITCHMAN DOCTOR IS DR. OG RESPONDED AND MADE AWARE W/ HEART RATE - 160'S W/ ORDER NOTED AND CARRIED OUT. DIGOXIN .25MG GIVEN IVP.@ 5167
[2020-06-25] MEDS: fentaNYL citrate 2.5 MG in NACL 0.9% 200 ML IV PRN (17:57)
--- NOTE | 2020-06-25 18:45 | NUR ---
ALL NEEDS ATTENDED AND MET DURING THE SHIFT/ HEART RATE STILL ON THE HIGH SIDE. CONDITION UNCHANGED.TO BE ENDORSED TO RN RUFUS IF PT'S HEART RATE STILL ON THE HIGH SIDE TO START CARDIZEM DRIP.FOR CONTINUITY OF CARE.
[2020-06-25] MEDS ORDERED: DIGOXIN 0.25 MG/ML AMP IV ONE (18:55)
--- NOTE | 2020-06-25 18:55 | NUR ---
DIGOXIN 0.25MG GIVEN IVP.
--- NOTE | 2020-06-25 19:15 | NUR ---
RECEIVED PATIENT FROM AM SHIFT NURSE FOR CONTINUITY OF CARE. RASS -3. ETT TO VENT. VENT SETTINGS: AC/VC FIO2 45% RR 20 PEEP 5. RESPIRATIONS EVEN, UNLABORED. O2SAT 96%. S1/S2 AUSCULTATED. SKIN WARM, DRY. RIGHT UPPER ARM PICC NOTED, INFUSING VERSED, FENTANYL AND LEVOPHED. SALINE LOCK TO RIGHT AC 20G PATENT/INTACT. RIGHT IJ DESTINY CATHETER NOTED, DRESSING CLEAN/DRY AND INTACT. FLACC 0. ABDOMEN SOFT, NONTENDER. BOWEL SOUNDS ACTIVE X4 QUADRANTS. LIVER DRAIN PATENT WITH DARK RED DRAINAGE NOTED. OGT NOTED, CONTINUES ON ENTERAL FEEDING, TOLERATING WELL. NO RESIDUAL NOTED. HOB UP 30 DEGREES. GODINEZ CATHETER PATENT WITH BROWN OUTPUT NOTED. PLAN OF CARE DISCUSSED. SAFETY PRECAUTIONS IN PLACE.
--- NOTE | 2020-06-25 21:30 | NUR ---
DUE MEDS GIVEN. PATIENT TURNED AND REPOSITIONED.
--- NOTE | 2020-06-25 23:00 | NUR ---
UPDATED PATIENT'S SON STEPHEN ANDERSON REGARDING PATIENT'S STATUS AND PLAN OF CARE.
[2020-06-26] VITALS (33 sets, daily range): BP systolic 104–151; BP diastolic 52–92
--- NOTE | 2020-06-26 01:30 | NUR ---
VAP CARE RENDERED. TURNED AND REPOSITIONED.
[2020-06-26] MEDS: NOREPINEPHRINE 4 MG in DEXTROSE 5% 250 ML IV PRN ×4 (01:52→17:41)
[2020-06-26] MEDS: PIPERACILLIN/TAZOBACTAM 2.25 GM in DEXTROSE 5% 50 ML IV SCH (04:26)
[2020-06-26 06:17] LABS: HEMATOCRIT 50.2 % (36-52); HEMOGLOBIN 16.6 g/dL (12.0-18.0); MEAN CORPUSCULAR HEMOGLOBIN 29 pg (27-31); MEAN CORPUSCULAR HGB CONC 33 g/dL (33-37); MEAN CORPUSCULAR VOLUME 87.8 fL (80-94); PLATELET COUNT (AUTO) 38 K/uL (140-450); RED BLOOD CELL COUNT(AUTO) 5.72 MIL/uL (4.20-6.10); RED CELL DISTRIBUTION WIDTH 16.8 % (11.6-13.7)
[2020-06-26 06:38] LABS: ANION GAP 19.4 (8-16); CARBON DIOXIDE 19.2 mmol/L (21-32); POTASSIUM 4.6 mmol/L (3.5-5.1)
[2020-06-26] MEDS ORDERED: NOREPINEPHRINE 4 MG/4 ML VIAL IV ONE (06:44)
--- NOTE | 2020-06-26 07:10 | NUR ---
REPORT GIVEN BY TAMMIE HOOPER, STILL SEDATED AND ON PROPOFOL AND VERSED DRIP AND ON FENTANYL DRIP.STILL INTUBATED AND ON 40% FIO2 SATURATING 97-99%.PT STARTED TO BE AGITATED AND RESTLESS SEDATION TITRATED ACCORDINGLY. Addendum: 06/26/20 at 1053 by Paulette Boyce RN RN PT NOT ON PROPOFOL .WRONG ENTRY
[2020-06-26 08:09] LABS: CREATININE 6.2 mg/dL (0.6-1.3)
[2020-06-26 08:21] LABS: WHITE BLOOD COUNT (AUTO) 37.3 K/uL (4.8-10.8)
[2020-06-26 08:22] LABS: LYMPHOCYTES % (MANUAL) 6 % (20-46); MONOCYTES % (MANUAL) 2 % (5-12)
--- NOTE | 2020-06-26 08:30 | NUR ---
VISITED AND EXAMINED BY DR. CURTIS PT STILL AGITATED AND LEFT ORDER FOR RT THAT PT NOT READY TO CHANGE VENT SETTING TO CPAP. RT TROY GRACE.
[2020-06-26] MEDS: ERYTHROMYCIN ETHYLSUCCINATE SUSP 200 MG/5 ML UDC PO SCH ×3 (09:00→17:36)
[2020-06-26] MEDS: PANTOPRAZOLE 40 MG INJ VIAL IVP SCH (09:00)
[2020-06-26] MEDS: LACTULOSE 20 GM/30 ML UDC PO SCH (09:00)
--- NOTE | 2020-06-26 11:10 | NUR ---
PT. MYA WITH LOW LUZMARIA SCALE AT HIGH RISK, CONTINUE TO FOLLOW PRESSURE INJURY PREVENTION INTERVENTIONS. -TURN AND REPOSITION PATIENT Q 2H -ASSESS AND MONITOR SKIN CONDITION DURING POSITION CHANGE -OFFLOAD BILATERAL HEELS BY PLACING PILLOWS UNDER CALVES AT ALL TIMES, UNLESS OTHERWISE CONTRAINDICATED -PRESSURE REDISTRIBUTION BY PLACING PILLOWS AND OFFLOADING SACRALCOCCYX -KEEP SKIN CLEAN AND DRY AT ALL TIMES.
--- NOTE | 2020-06-26 12:39 | NUR ---
DR BOYD CAME IN AND UPDATED TO PT'S CONDITION MADE AWARE THAT PT'S DAUGHTER HAD GIVEN HER CONSENT FOR ERCP CONSENT ATTACHED TO CHART.PT IS FOR HIDA SCAN TODAY.
--- NOTE | 2020-06-26 12:45 | NUR ---
DR GIVENS CAME IN AND HAD INSTRUCTION REGARDING THE HIDA SCAN TO HOLD FENTANYL FOR 4 HOURS DUE TO HIDA SCAN NO OPIATES AT LEAST 4 HOURS PRIOR TO HIDA SCAN.NPO MAINTAINED ENTERAL FEEDING HOLD FOR 4-5 HOURS PRIOR THE PROCEDURE.
--- NOTE | 2020-06-26 13:19 | NUR ---
PT SUCTIONED OBTAINED SMALL AMOUNT OF THICK PALE YELLOW SECRETIONS, AIRWAY IS PATENT AND ETT IS SECURE. PT NOT IN ANY DISTRESS AT THIS TIME. WILL CONTINUE TO MONITOR.
--- NOTE | 2020-06-26 16:00 | NUR ---
COMPLETE BED BATH DONE.SUCTIONED SECRETIONS VIA ET TUBE. MAINTAINED ON 30 DEGREES HOB TO FACILITATE EASY BREATHING AND PREVENT ASPIRATION.W. EPISODES OF TACHYPNEA.
--- NOTE | 2020-06-26 17:21 | NUR ---
PT REMAINS ON DOCUMENTED VENT SETTINGS. PT NOT IN ANY DISTRESS AT THIS TIME. PT SUCTIONED OBTAINED MODERATE AMOUNT OF THICK PALE YELLOW SECRETIONS, AIRWAY IS PATENT AND ETT IS SECURE. VENT ALARMS ON AND FUNCTIONING.
--- NOTE | 2020-06-26 18:23 | NUR ---
HIDA SCAN BURIAL NEEDS SALESPERSON CAME IN SET UP THE MACHINE AND HIDA SCAN STARTED.RECTAL BAG CHANGED.
--- NOTE | 2020-06-26 19:00 | NUR ---
RECEIVED PATIENT FROM AM SHIFT NURSE FOR CONTINUITY OF CARE. RASS -3. ETT TO VENT. VENT SETTINGS: AC/VC FIO2 35% RR 20 PEEP 5. RESPIRATIONS EVEN, UNLABORED. O2SAT 93%. S1/S2 AUSCULTATED. SKIN WARM, DRY. RIGHT UPPER ARM PICC NOTED, INFUSING VERSED AND LEVOPHED. SALINE LOCK TO RIGHT AC 20G PATENT/INTACT. RIGHT IJ DESTINY CATHETER NOTED, DRESSING CLEAN/DRY AND INTACT. FLACC 0. ABDOMEN SOFT, NONTENDER. BOWEL SOUNDS ACTIVE X4 QUADRANTS. LIVER DRAIN PATENT WITH DARK RED DRAINAGE NOTED. OGT NOTED. DARK RESIDUAL NOTED. FEEDING ON HOLD AT THIS TIME. HOB UP 30 DEGREES. GODINEZ CATHETER PATENT WITH BROWN OUTPUT NOTED. PATIENT IS CURRENTLY GETTING A HIDA SCAN. PLAN OF CARE DISCUSSED. SAFETY PRECAUTIONS IN PLACE.
--- NOTE | 2020-06-26 21:00 | NUR ---
DUE MEDS GIVEN ORDERED. PATIENT CONTINUES WITH HIDA SCAN AT THIS TIME.
[2020-06-26] MEDS ORDERED: PIPERACILLIN/TAZOBACTAM 2.25 GM VIAL IV ONE (21:15)
[2020-06-26] MEDS: PIPER/TAZO 2.25GM/D5W PREMIX 50 ML IV SCH (21:26)
--- NOTE | 2020-06-26 23:04 | NUR ---
PATIENT TURNED AND REPOSITIONED. CONTINUE TO HOLD FEEDING DUE TO DARK RESIDUAL.
[2020-06-27] VITALS (35 sets, daily range): BP systolic 93–138; BP diastolic 52–63
[2020-06-27] MEDS ORDERED: PIPERACILLIN/TAZOBACTAM 3.375 GM in DEXTROSE 5% 50 ML IV SCH ×2
--- NOTE | 2020-06-27 01:30 | NUR ---
VAP ORAL CARE RENDERED.
[2020-06-27] MEDS: MIDAZOLAM MDV 100 MG in NACL 0.9% 80 ML IV PRN (02:20)
[2020-06-27] MEDS: PIPER/TAZO 2.25GM/D5W PREMIX 50 ML IV SCH (05:00)
--- NOTE | 2020-06-27 05:00 | NUR ---
INCONTINENT CARE RENDERED. PATIENT TURNED AND REPOSITIONED.
[2020-06-27] MEDS ORDERED: PIPERACILLIN/TAZOBACTAM 2.25 GM VIAL IV ONE (06:09)
[2020-06-27 06:48] LABS: HEMATOCRIT 49.1 % (36-52); HEMOGLOBIN 16.3 g/dL (12.0-18.0); MEAN CORPUSCULAR HEMOGLOBIN 29 pg (27-31); MEAN CORPUSCULAR HGB CONC 33 g/dL (33-37); MEAN CORPUSCULAR VOLUME 87.2 fL (80-94); PLATELET COUNT (AUTO) 87 K/uL (140-450); RED BLOOD CELL COUNT(AUTO) 5.63 MIL/uL (4.20-6.10); RED CELL DISTRIBUTION WIDTH 16.6 % (11.6-13.7)
--- NOTE | 2020-06-27 07:06 | NUR ---
REC'D PT ON [employer] VENT SETTINGS AC 20 VT 500 ITIME 0.80 PEEP 5 FIO2 35% ALARMS ON AND AUDIBLE VENT IS PLUGGED INTO RED OUTLET, B\S ARE DIMINISHED BILATERALLY SXN PT SMALL AMT OF CREAM COLOR SECRETIONS, PT IS ORALLY INTUBATED WITH 8.0 ETT AT 25CM PT IS RESTING WILL CONTINUE TO MONITOR PT
--- NOTE | 2020-06-27 07:21 | NUR ---
ENDORSED TO AM SHIFT NURSE FOR CONTINUITY OF CARE.
--- NOTE | 2020-06-27 07:30 | NUR ---
PATIENT RECEIVED ON LEVO AT 10, FENTANYL AT 1, VERSED AT 4. ETT TO VENT, SUCTIONED WITH MINIMAL SECRETIONS. AROUSABLE TO DEEP STIMULI. COUGH AND GAG PRESENT. PERRLA. PATIENT WITH ABDOMINAL NOTED WITH BLOODY OUTPUT. PATIENT WITH RECTAL TUBE. NOTED TO BE LEAKING. PATIENT CHANGED AND BATHED AND REASSESSED RECTAL TUBE. WILL CONTINUE TO MONITOR. OUTPUT IS LIQUID AND GREENISH IN COLOR. OGT. ASPIRATED 50 CC DARK COLORED OUTPUT. OGT AUSCULTATED AND NOTED TO BE IN PLACE. TF HELD AT THIS TIME AND WAS HELD THROUGHOUT NIGHTSHIFT PER NOC RN DT DARK COLORED ASPIRATE. PATIENT WITH LOW GRADE TEMP. RIGHT IJ DESTINY NOTED WITHOUT ANY DRAINAGE. PICC TO BERTO FLUSHED AND WITHOUT ANY ISSUES NOTED. WILL CONTINUE TO MONITOR AND ATTEND TO PATIENT NEEDS.
[2020-06-27 07:35] LABS: ANION GAP 20.3 (8-16); CARBON DIOXIDE 18.8 mmol/L (21-32); POTASSIUM 5.1 mmol/L (3.5-5.1)
[2020-06-27] MEDS: LACTULOSE 20 GM/30 ML UDC PO SCH (08:02)
[2020-06-27] MEDS: PANTOPRAZOLE 40 MG INJ VIAL IVP SCH (08:02)
[2020-06-27] MEDS: ERYTHROMYCIN ETHYLSUCCINATE SUSP 200 MG/5 ML UDC PO SCH ×3 (08:03→17:37)
[2020-06-27 08:06] LABS: CREATININE 6.6 mg/dL (0.6-1.3)
--- NOTE | 2020-06-27 10:28 | NUR ---
DR. GIVENS MADE ROUNDS. UPDATED ON CURRENT PATIENT CONDITION, LABS, MEDS, VENT SETTINGS. CLARIFIED IF PT PLAN TO HAVE ERCP. HE STATED AT THIS TIME PATIENT MAY NOT BE ABLE TO TOLERATE. NO NEW ORDERS AT THIS TIME. WILL CONTINUE TO MONITOR AND ATTEND TO PATIENT NEEDS.
[2020-06-27 10:51] LABS: EOSINOPHILS % (MANUAL) 1 % (0-4); LYMPHOCYTES % (MANUAL) 4 % (20-46); MONOCYTES % (MANUAL) 3 % (5-12)
--- NOTE | 2020-06-27 10:58 | NUR ---
SAW THAT DR. GIVENS PLACED ORDERS FOR 2 UNITS PLATELETS. CLARIFIED ORDER WITH HIM (PLATELETS TRENDING UP TODAY 87 FROM 38 YESTERDAY). HE STATED ACTUALLY 1 UNIT OF PLATELETS TO BE READY FOR TOMORROW AT 5 AM TO BE GIVEN DURING PROCEDURE. IR TO DO THORACENTESIS AND READJUST LIVER DRAIN. LAB CALLED AND NOTIFIED OF CLARIFICATION. LAB AWARE PATIENT WILL NEED ONLY 1 UNIT AND IT WILL NEED TO BE READY BY 5AM TOMORROW 05/28/20.
[2020-06-27] MEDS: NOREPINEPHRINE 4 MG in DEXTROSE 5% 250 ML IV PRN ×3 (11:03→20:00)
[2020-06-27] MEDS: fentaNYL citrate 2.5 MG in NACL 0.9% 200 ML IV PRN (11:06)
--- NOTE | 2020-06-27 12:31 | NUR ---
CLARIFIED WITH DR. GIVENS PLASMA ORDER. STATED CAN TRANSFUSE PLASMA TODAY AND PLATELETS TO BE TRANSFUSED TOMORROW.
[2020-06-27] MEDS: MIDODRINE 5 MG TAB PO SCH ×2 (12:38→19:00)
[2020-06-27] MEDS: PIPERACILLIN/TAZOBACTAM 2.25 GM in DEXTROSE 5% 50 ML IV SCH ×2 (12:39→23:00)
[2020-06-27 12:58] LABS: PROTHROMBIN TIME 15.2 secs (10.8-13.4)
--- NOTE | 2020-06-27 14:00 | NUR ---
DR. BOYD MADE ROUNDS. RADIOLOGY CAME BY AND STATED PLAN FOR TOMORROW IS US GUIDED THORACENTESIS AND CT GUIDED DRAIN. DR. BOYD AWARE. DR. BOYD STATED TO PLEASE START PATIENT ON TUBE FEEDS. AWARE THERE IS MINIMAL AMOUNT DARK COLORED DRAINAGE FROM OGT. STATED THAT IS OK.
--- NOTE | 2020-06-27 14:47 | NUR ---
CALRIFIED WITH DR. GIVENS, AND HE STATED ONLY TO TRANSFUSE 1 ORDER FFP. 1 UNIT TRANSFUSING AT THIS TIME. VITALS REMAIN STABLE. NO NOTED REACTIONS. WILL CONTINUE TO MONITOR.
--- NOTE | 2020-06-27 18:44 | NUR ---
CONSENT WAS OBTAINED EARLIER OVER THE PHONE, SPOKE TO MARISOL PATIENT DAUGHTER. CONSENT GIVEN FOR US GUIDED THORACENTESIS AND CT GUIDED DRAINAGE. DR. GIVENS WAS MADE AWARE THAT SHE WOULD LIKE HIM TO CALL HER SHE HAS QUESTIONS REGARDING PATIENT.
--- NOTE | 2020-06-27 18:44 | NUR ---
HD NURSE AT BEDSIDE AT THIS TIME. TO START HEMODIALYSIS.
--- NOTE | 2020-06-27 18:46 | NUR ---
END OF SHIFT PATIENT REMAINS ON ROMELIA AT 10, VERSED AT 4, AND FENTANYL AT 1. ETT TO VENT WITH MINIMAL SECRETIONS NOTED. VITALS STABLE. ABDOMINAL DRAIN FLUSHED TWICE THIS SHIFT. 25ML TOTAL OUTPUT OVER 12 HOURS. FC WITH 700 OUTPUT DARK GARRY COLORED URINE. RECTAL TUBE WITH LIQUID GREEN OUTPUT TOTAL 600ML. AT THIS TIME PATIENT APPEARS COMFORTABLE WITHOUT ANY NOTED S/S PAIN SOB OR DISTRESS. WILL ENDORSE TO NOC SHIFT RN FOR CONTINUITY OF CARE.
[2020-06-28] VITALS (32 sets, daily range): BP systolic 89–137; BP diastolic 54–81
[2020-06-28] MEDS: NOREPINEPHRINE 4 MG in DEXTROSE 5% 250 ML IV PRN ×3 (01:58→13:33)
[2020-06-28] MEDS: PIPERACILLIN/TAZOBACTAM 2.25 GM in DEXTROSE 5% 50 ML IV SCH ×3 (05:20→21:28)
[2020-06-28 05:53] LABS: PROTHROMBIN TIME 15.7 secs (10.8-13.4)
[2020-06-28 06:01] LABS: HEMATOCRIT 46.1 % (36-52); MEAN CORPUSCULAR HEMOGLOBIN 29 pg (27-31); MEAN CORPUSCULAR HGB CONC 33 g/dL (33-37); MEAN CORPUSCULAR VOLUME 88.2 fL (80-94); RED BLOOD CELL COUNT(AUTO) 5.23 MIL/uL (4.20-6.10); RED CELL DISTRIBUTION WIDTH 16.9 % (11.6-13.7)
[2020-06-28 06:20] LABS: ANION GAP 17.6 (8-16); CARBON DIOXIDE 20.5 mmol/L (21-32); POTASSIUM 4.1 mmol/L (3.5-5.1)
[2020-06-28] MEDS: MIDODRINE 5 MG TAB PO SCH ×3 (07:00→18:37)
[2020-06-28 08:33] LABS: WHITE BLOOD COUNT (AUTO) 33.8 K/uL (4.8-10.8)
[2020-06-28 08:43] LABS: PLATELET COUNT (AUTO) 132 K/uL (140-450)
--- NOTE | 2020-06-28 08:45 | NUR ---
DR. GIVENS MADE ROUNDS. UPDATED ON PATIENT CONDITION, LABS, MEDS, VENT SETTINGS ,AND PLAN FOR THORACENTESIS WELL CT GUIDED DRAIN. NOTIFIED HIM THAT PATIENT DAUGHTER WOULD LIKE TO SPEAK TO HIM. HE STATED HE WILL CALL DAUGHTER.
[2020-06-28 08:47] LABS: LYMPHOCYTES % (MANUAL) 3 % (20-46); MONOCYTES % (MANUAL) 2 % (5-12)
[2020-06-28 08:49] LABS: EOSINOPHILS % (MANUAL) 3 % (0-4)
[2020-06-28] MEDS: ERYTHROMYCIN ETHYLSUCCINATE SUSP 200 MG/5 ML UDC PO SCH ×3 (09:18→17:14)
[2020-06-28] MEDS: PANTOPRAZOLE 40 MG INJ VIAL IVP SCH (09:18)
--- NOTE | 2020-06-28 09:20 | NUR ---
TIME OUT FOR THORACENTHESIS, LIVER ABSCESS DRAINAGE IN CT WITH REEL STRIPPER EILEEN, ANESTHESIA DR RODRIGUEZ, IR DR SPAIN AT BEDSIDE. CURRENT VITALS HR 80, BP 116/58, RR 21, SAT 94%
--- NOTE | 2020-06-28 09:45 | NUR ---
900ML CREAMY NGUYEN COLOR DRAINED WITH THORACENTHESIS, CHEST TUBE PLACED AND CONNECTED TO PLEURALVAC TO SUCTION.
--- NOTE | 2020-06-28 10:30 | NUR ---
CT ABD WITH/WITHOUT CONTRAST MEDICALLY NECESSARY PER DR SPAIN AND DR GIVENS, CONSENT WAIVED.
--- NOTE | 2020-06-28 10:35 | NUR ---
[address] FOR THORACENTESIS AND CT GUIDED DRAINAGE. ACCOMPANIED BY RT, RADIOLOGY, CHARGE NURSE. USER SUPPORT ANALYST SUPERVISOR CAME BY AND REPORT ON PATIENT GIVEN TO HIM. HE CALLED AND SPOKE TO PATIENT DAUGHTER, MARISOL, AND OBTAINED ANAESTHESIA CONSENT AND VERIFIED BY 2 RNS. LABS RESULTS GIVEN TO RADIOLOGY AND WAS RELAYED TO RADIOLOGIST. STATED IF PLATELETS LESS THAN 50 TO TRANSFUSE 1 UNIT PLATELETS PRIOR TO PROCEDURES. PLATELETS CAME BACK 132 AND RADIOLOGY NOTIFIED. NO PLATELET TRANSFUSION TO BE GIVEN. PATIENT ON LEVO AT 10, VERSED AT 4, AND FENTANYL AT 1. VITALS STABLE. FIO2 35% WITH O2 SAT 96%. SUCTION VIA ETT WITH MINIMAL SECRETIONS. ORAL SUCTIONING DONE, MINIMAL WHITE BLOOD TINGED SECRETIONS NOTED. NO OUTPUT OVERNIGHT IN LIVER DRAIN PER NOC RN. PATIENT WITH RECTAL TUBE, MINIMAL OUTPUT NOTED AT THIS TIME. PATIENT WITH FC DARK COLORED MINIMAL URINE OUTPUT NOTED. OGT CLAMPED.PATIENT OFF UNIT AT 0900.
--- NOTE | 2020-06-28 11:22 | NUR ---
1122 PATIENT LEFT UNIT AT 0900 AND REMAINS OFF UNIT AT THIS TIME. FOR THIS REASON, NO VITALS CHARTED FOR 1000 1AND 1100.
--- NOTE | 2020-06-28 12:00 | NUR ---
PATIENT ARRIVED BACK FROM CT. WITH NEW RIGHT CHEST TUBE. OUTPUT APPEARS YELLOWISH AND PURULENT. [facility] CANISTER FULL. PATIENT WITH NEW LIVER DRAIN ABOVE PREVIOUS DRAIN. NEW DRAIN WITHOUT ANY NOTED DRAINAGE AT THIS TIME. INITIAL DRAIN REMAINS IN PLACE AND WITHOUT ANY NEW OUTPUT. CT ATRIUM CANISTER CHANGED AND CONNECTED TO SUCTION. LIVER SPECIMEN BROUGHT TO LAB BY CHARGE NURSE. PATIENT CLEANED, LINENS CHANGED AND PATIENT REPOSITIONED AT THIS TIME. VITALS STABLE. REMAINS ON LEVOPHED AT 10. DR. AMAYA AT STATION AND NOTIFIED PATIENT HAD CONTRAST WITH CT. VERIFIED IF HE WOULD LIKE TO ORDER HD FOR TODAY. HE STATED NOT NECESSARY FOR TODAY AND WILL ORDER HD FOR TOMORROW. NOTED THAT HE PLACED ORDERS FOR HEMODIALYSIS TO BE SCHEDULED FOR TOMORROW. FAMILY OUTSIDE PATIENT WINDOW. WILL CONTINUE TO MONITOR AND ATTEND TO PATIENT NEEDS.
--- NOTE | 2020-06-28 12:30 | NUR ---
PT WAS TAKING TO CT FOR A PROCEDURE. PT WAS TAKEN USING THE SAME VENTILATOR AND THE SAME SETTINGS PER THE CHARTING. PT WAS STABLE DURING B0TH TRANSPORT TIMES AND DURING THE PROCEDURE HAVING REGULAR VITAL SIGNS. PT WAS THEN TRANSPORTED BACK DOING WELL.
--- NOTE | 2020-06-28 15:06 | NUR ---
06/28/20 RD INITIAL ASSESSMENT COMPLETED PLEASE REFER TO NUTRITION ASSESSMENT UNDER CARE ACTIVITY FOR ESTIMATED NUTRITIONAL NEEDS. 1. RECOMMEND NEPRO @ 45 ML/HR -THIS WILL PROVIDE 1080 ML OF VOLUME, 1944 KCAL, 87 GM OF PROTEIN. 2. CONTINUE FREE WATER FLUSH PER MD 100ML Q6H 3. IF EXTUBATED CONSIDER SWALLOW EVALUATION 4. RD TO FOLLOW-UP 2-3 DAYS, HIGH RISK NIKKI ESPINO RD
--- NOTE | 2020-06-28 16:10 | NUR ---
CALLED [facility] NURSE, TO NOTIFY THAT PATIENT HAS HD ORDERS FOR TOMORROW. AWARE.
[2020-06-28] MEDS: fentaNYL citrate 2.5 MG in NACL 0.9% 200 ML IV PRN ×2 (18:38→20:00)
--- NOTE | 2020-06-28 18:58 | NUR ---
END OF SHIFT PATIENT REMAINS ON LEVO AT 10, VERSED AT [address] AT [address]. [address] TO SUCTION, YELLOWISH COLOR OUTPUT. BOTH LIVER DRAINS WITHOUT ANY DRAINAGE NOTED SINCE PATIENT GOT BACK FROM CT. REMAINS ON 35% FIO2 WITH O2 SAT 96%. APPEARS COMFORTABLE WITHOUT ANY NOTED S/S PAIN SOB OR DISTRESS. RECTAL TUBE WITH MINIMAL DRAINAGE. REMAINS AFEBRILE. FC WITH MODERATE OUTPUT 950ML DARK GARRY COLORED URINE. PATIENT CLEANED AND BATHED. REPOSITIONED Q2L. ORAL CARE GIVEN Q 4. AT THIS TIME WITHOUT ANY NOTED S/S PAIN SOB OR DISTRESS. WILL ENDORSE SHIFT TO NOC RN.
--- NOTE | 2020-06-28 20:00 | NUR ---
RECEIVED REPORT FROM DAY SHIFT RN. PT IS SEDATED. RASS -3. ETT TO VENT. AC/VC FIO2: 35%, TV 500, RATE 20, PEEP 5. LUNG SOUNDS DIMINISHED BILATERALLY. RT CHEST TUBE IN PLACE. SR NOTED ON MONITOR. S1S2 NOTED. RT IJ DESTINY HD CATH IN PLACE. BERTO PICC LINE ASYMPTOMATIC, PATENT AND INTACT, RUNNING FENTANYL 1MCG/KG/HR, VERSED 4MG/HR, LEVOPHED 10 MCG/MIN. RT AC 20g ASYMPTOMATIC, PATENT AND INTACT, SALINE LOCKED. [address], DRAINING TO GRAVITY. BOWEL SOUNDS ACTIVE, ABDOMEN SOFT. OG-TUBE IN PLACE, AUSCULTATED PLACEMENT, RESIDUAL: 80ML. FEED: VITAL A.F 1.2 RUNNING AT GOAL RATE OF 45ML/HR. GODINEZ CATH IN PLACE, DRAINING WITH GRAVITY, DARK GARRY URINE IN BAG NOTED. SKIN DRY AND WARM TO TOUCH, REDNESS AND BLISTERS NOTED TO BILATERAL TOPS OF FEET. SAFETY MEASURES IN PLACE. SCDs IN PLACE. HOB ELEVATED 30 DEGREES, BED IN LOW AND LOCKED POSITION. WILL CONT TO MONITOR.
--- NOTE | 2020-06-28 22:15 | NUR ---
DR GIVENS CALLED AND UPDATED ON PTs CONDITION. HD IS SCHEDULED FOR TOMORROW 0800.
--- NOTE | 2020-06-28 22:59 | NUR ---
HD NURSE [facility] CALLED, CONFIRMED HD FOR TOMORROW
[2020-06-29] VITALS (53 sets, daily range): BP systolic 88–166; BP diastolic 49–86
--- NOTE | 2020-06-29 | NUR ---
NO S/S OF DISTRESS NOTED. TURNED AND REPOSITIONED PT. SAFETY MEASURES IN PLACE, BED LOW AND LOCKED SIDE RAILS UP. WILL CONT TO MONITOR. Addendum: 06/29/20 at 0538 by Rachael Schafer RN RN VAP ORAL CARE GIVEN
[2020-06-29] MEDS: NOREPINEPHRINE 4 MG in DEXTROSE 5% 250 ML IV PRN (01:09)
--- NOTE | 2020-06-29 02:00 | NUR ---
PTs CONDITION REMAINS UNCHANGED, CHEST TUBE DRAINING WELL. NO DRAINAGE FROM BOTH LIVER DRAIN TUBES. TURNED AND REPOSITIONED PT. SAFETY MEASURES IN PLACE, BED LOW AND LOCKED SIDE RAILS UP. WILL CONT TO MONITOR.
--- NOTE | 2020-06-29 04:00 | NUR ---
ROUTINE CARE GIVEN, CHG BATH, GODINEZ CARE, VAP ORAL CARE, CLEAN LINEN, TURNED AND REPOSITIONED PT. PT TOLERATED IT WELL. SAFETY MEASURES IN PLACE, HOB 30 DEGREES, BED LOW AND LOCKED, SIDE RAILS UP, WILL CONT TO MONITOR.
[2020-06-29] MEDS: PIPERACILLIN/TAZOBACTAM 2.25 GM in DEXTROSE 5% 50 ML IV SCH ×3 (05:05→20:22)
--- NOTE | 2020-06-29 06:00 | NUR ---
NO S/S OF DISTRESS NOTED, TURNED AND REPOSITIONED PT, SAFETY MEASURES IN PLACE, HOB 30 DEGREES, BED LOW AND LOCKED SIDE RAILS UP. WILL CONT TO MONITOR.
[2020-06-29] MEDS: MIDODRINE 5 MG TAB PO SCH ×3 (07:01→19:00)
--- NOTE | 2020-06-29 07:15 | NUR ---
ENDORSED CARE TO DAY SHIFT TAMMIE CAREY
--- NOTE | 2020-06-29 07:15 | NUR ---
RECEIVED PT SEDATED ON VERSED AND FENTANYL DRIP. ON LEVOPHED DRIP @ 6MCG/MIN. AND W/ PATENT CONTRAPTIONS. LYING COMFORTABLY ON BED PT IS FOR HEMODIALYSIS TODAY.
[2020-06-29] MEDS: MIDAZOLAM MDV 100 MG in NACL 0.9% 80 ML IV PRN (08:15)
--- NOTE | 2020-06-29 08:15 | NUR ---
INITIAL ASSESSMENT DONE. SEEN AND EXAMINED BY DR. CURTIS UPDATED TO PT'S CONDITION W/ ORDER NOTED AND CARRIED OUT. PORTABLE CXR DONE. PT'S CONDITION UNCHANGED.
[2020-06-29 08:19] LABS: HEMATOCRIT 43.2 % (36-52); MEAN CORPUSCULAR HEMOGLOBIN 28 pg (27-31); MEAN CORPUSCULAR HGB CONC 33 g/dL (33-37); MEAN CORPUSCULAR VOLUME 87.6 fL (80-94); PLATELET COUNT (AUTO) 219 K/uL (140-450); RED BLOOD CELL COUNT(AUTO) 4.92 MIL/uL (4.20-6.10); RED CELL DISTRIBUTION WIDTH 16.7 % (11.6-13.7)
--- NOTE | 2020-06-29 08:30 | NUR ---
TAMMIE LE CAME IN AND SET UP DIALYSIS MACHINE AND STARTED THE PROCEDURE. MONITORED CLOSELY.RN @ BEDSIDE. NO ADVERSE REACTION SEEN AFTER 15MINS OF DIALYSIS.
[2020-06-29] MEDS: PANTOPRAZOLE 40 MG INJ VIAL IVP SCH (09:01)
[2020-06-29 09:51] LABS: EOSINOPHILS % (MANUAL) 3 % (0-4); LYMPHOCYTES % (MANUAL) 3 % (20-46); MONOCYTES % (MANUAL) 4 % (5-12)
[2020-06-29] MEDS: NOREPINEPHRINE 16 MG in DEXTROSE 5% 250 ML IV PRN (10:25)
--- NOTE | 2020-06-29 11:30 | NUR ---
HEMODIALYSIS COMPLETED. W/ OUTPUT OF 1800ML.PT RESTING COMFORTABLY.REPOSITIONED AND MAINTAINED ON 30 DEGREES HOB TO FACILITATE EASY BREATHING AND PREVENT ASPIRATION.
--- NOTE | 2020-06-29 15:00 | NUR ---
SEEN AND EXAMINED BY DR. SPAIN NO NEW ORDER MADE IRRIGATED THE 2 LIVER CATHETER. 1 STILL W/ BLOODY OUTPUT 2ND ONE YELLOWISH OUTPUT.V/S W/IN NORMAL LIMITS.
--- NOTE | 2020-06-29 16:00 | NUR ---
LEVOPHED DRIP @ 20MCG/MIN.REPOSITIONED AND MAINTAINED ON 30 DEGREES HOB. PT CALMED AND QUIET. NOT TACHYPNEIC.
--- NOTE | 2020-06-29 19:08 | NUR ---
ALL NEEDS ATTENDED AND MET DURING THE SHIFT.CONDITION UNCHANGED W/ PATENT CONTRAPTIONS ENDORSED TO PUBLICATIONS DESIGNERELECTRICIAN CHIEF FOR CONTINUITY OF CARE.
--- NOTE | 2020-06-29 19:45 | NUR ---
RECEIVED REPORT FROM DAY SHIFT RN; PT HAS EYES CLOSED; AROUSABLE, RASS-3. FLACC 0. ETT TO VENT ON 35% FIO2, MINIMAL SECRETIONS NOTED. SR 80-90S, +1 THREADY PERIPHERAL PULSES; EDEMA 1-2+ GENERALIZED NOTED. ABD SOFT NON DISTENDED. GT IN PLACE, + PLACEMENT, FEEDINGS RUNNING PATENT. GODINEZ CATH IN PLACE, OLIGURIC. RIJ DESTINY CATH IN PLACE. R SUBCLAVIAN CENTRAL LINE IN PLACE PATENT. LEVOPHED NEOSYNEPHRINE DRIP RUNNING FOR BP SUPPORT. AMIODARONE DRIP RUNNING PER PROTOCOL. SKIN NON INTACT. BED LOCKED IN LOWEST POSITION. FLACC 0. X2 DRAINS TO ABD NOTED. R CT TO GRAVITY. WILL CONTINUE TO OBSERVE
--- NOTE | 2020-06-29 22:45 | NUR ---
PT TURNED AND REPOSITIONED. RASS-3, RECTAL TUBE IN PLACE, LEAKING AROUND PERIANAL AREA, WILL CONTINUE TO OBSERVE.
[2020-06-30] VITALS (33 sets, daily range): BP systolic 100–143; BP diastolic 44–115
--- NOTE | 2020-06-30 02:57 | NUR ---
PT HAS EYES CLOSED; FLACC 0. RASS-3. WILL CONTINUE TO OBSERVE.
[2020-06-30] MEDS: PIPERACILLIN/TAZOBACTAM 2.25 GM in DEXTROSE 5% 50 ML IV SCH ×3 (05:00→20:35)
[2020-06-30 06:06] LABS: ANION GAP 14.7 (8-16); CARBON DIOXIDE 23.2 mmol/L (21-32); CREATININE 3.6 mg/dL (0.6-1.3); POTASSIUM 3.9 mmol/L (3.5-5.1)
--- NOTE | 2020-06-30 07:15 | NUR ---
RECEIVED PT FROM TAMMIE ROSALES SEDATED W/ PATENT CONTRAPTIONS.NOT IN ANY FORM OF DISTRESS. STILL ON LEVOPHED DRIP @ 12MCG/MIN.W/ ENTERAL FEEDING OF NEPRO @ 45ML/HR RESIDUAL CHECKED-10 ML. TOLERATING THE FEEDING.
[2020-06-30 08:14] LABS: HEMATOCRIT 45.4 % (36-52); HEMOGLOBIN 14.7 g/dL (12.0-18.0); MEAN CORPUSCULAR HEMOGLOBIN 29 pg (27-31); MEAN CORPUSCULAR HGB CONC 32 g/dL (33-37); MEAN CORPUSCULAR VOLUME 89.3 fL (80-94); PLATELET COUNT (AUTO) 295 K/uL (140-450); RED BLOOD CELL COUNT(AUTO) 5.08 MIL/uL (4.20-6.10); RED CELL DISTRIBUTION WIDTH 16.8 % (11.6-13.7)
--- NOTE | 2020-06-30 08:45 | NUR ---
SEEN AND EXAMINED BY DR CURTIS GIVEN UPDATES W/ ORDERS NOTED AND CARRIED OUT. PLEUR EVAC CHANGED AND CONNECTED TO LOW CONTINUOUS SUCTION. PLEURAL DRAINAGE SEND TO LAB FOR AEROBIC AND ANAEROBIC CULTURE.
--- NOTE | 2020-06-30 09:00 | NUR ---
VISITED BY DR. HOLLAND UPDATED TO PT'S CONDITION AND SPOKE W/ DR CURTIS REGARDING PT'S CONDITION.NO FURTHER ORDER MADE.
[2020-06-30] MEDS: MIDAZOLAM MDV 100 MG in NACL 0.9% 80 ML IV PRN (09:25)
[2020-06-30] MEDS: fentaNYL citrate 2.5 MG in NACL 0.9% 200 ML IV PRN (09:30)
[2020-06-30 09:33] LABS: WHITE BLOOD COUNT (AUTO) 32.9 K/uL (4.8-10.8)
[2020-06-30 09:34] LABS: EOSINOPHILS % (MANUAL) 1 % (0-4); LYMPHOCYTES % (MANUAL) 6 % (20-46); MONOCYTES % (MANUAL) 3 % (5-12)
--- NOTE | 2020-06-30 10:43 | NUR ---
PT. SEDATED, INTUBATED, LIPS AND ORAL MUCOSA INTACT,RIGHT CHEST TUBE DRESSING DCI , MID ABDOMEN DRAIN TUBE IN PLACE ,DRESSING DCI, BROWN COLOR FLUIDS OBSERVED. CHANGE OF SKIN CONDITION, BLISTERING DEVELOPING TO BILATERAL LAMBERT-ANKLES AND LEFT 2ND TOE, LAMBERT WOUND SKIN ERYTHEMA,WEEPING SEROUS FLUIDS. ALL EXTREMITIES WITH +3 EDEMA, WEEPING SKIN FURTHER SKIN BLISTERING/BREAKS INDICATED. POC DISCUSSED WITH PRIMARY RN, VERSATEL DRESSING APPLIED, HEELS OFFLOADING, UPPER EXTREMITIES ELEVATED. RECOMMENDATIONS: -APPLY VERSATEL DRESSING TO BLISTERING SKIN CHANGE DRESSING Q5 DAYS AND PRN IF SOILING -COVER ARMS AND LEGS WITH ABSORBANT PAD FOR WEEPING SKIN, CHANGE PRN IF SOILING -TURN AND REPOSITION PATIENT Q 2H -ASSESS AND MONITOR SKIN CONDITION DURING POSITION CHANGE -OFFLOAD BILATERAL HEELS BY PLACING PILLOWS UNDER CALVES AT ALL TIMES, UNLESS OTHERWISE CONTRAINDICATED -PRESSURE REDISTRIBUTION BY PLACING PILLOWS AND OFFLOADING SACRALCOCCYX -KEEP SKIN CLEAN AND DRY AT ALL TIMES. PLEASE CONTACT WOUND CARE NURSE FOR ANY QUESTIONS AND CHANGE OF SKIN CONDITION
--- NOTE | 2020-06-30 12:00 | NUR ---
PT'S FAMILY @ [facility]. DR GIVENS CAME IN UPDATES GIVEN NO FURTHER ORDER MADE. DR. TSE CAME IN UPDATED TO PT'S CONDITION. FOR HEMPDIALYSIS IN AM PER DR. TSE.
[2020-06-30] MEDS: MIDODRINE 5 MG TAB PO SCH ×2 (13:00→20:35)
[2020-06-30 16:15] LABS: ALBUMIN 1.5 g/dL (3.4-5.0); BILIRUBIN,DIRECT 1.5 mg/dL (0.0-0.3); TOTAL BILIRUBIN 2.5 mg/dL (0.0-1.0)
--- NOTE | 2020-06-30 19:17 | NUR ---
REPORT GIVEN TO TAMMIE MARTE W/ UNCHANGED CONDITION W/ PATENT CONTRAPTIONS FOR CONTINUITY OF CARE.
--- NOTE | 2020-06-30 20:00 | NUR ---
RECEIVED AN INTUBATED MALE PATIENT ATTACHED TO A VENTILATOR. VENTILATOR SETTINGS VERIFIED AT BEDSIDE. PATIENT IS ON SEDATION WITH FENTANYL & VERSED. RESPONDS TO TOUCH. CHEST TUBE IN PLACE AND TUBED VERIFIED & ARE IN PLACE AND WATER SEAL BUBBLING. TWO BILIARY DRAINAGE FOUND IN PLACE: ONE DRAINING A GREEN LIKE FLUID AND THE OTHER DRAINS SANGUINOUS FLUID. OGT IN PLACED & PLACEMENT VERIFIED BY AUSCULTATION. RECEIVING NEPRO AT 40mL/HR WITH NO RESIDUAL. F/C DRAINING URINE OUTPUT. NO DISTRESS NOTED.
--- NOTE | 2020-06-30 22:00 | NUR ---
NIGHT CARE PROVIDED, TURNED PER PROTOCOL. TOLERATING TUBE FEEDINGS. RESPIRATRY RATE INCREASED FROM 22 TO 28/PER MINUTE. VRSED INCREASED TO 6MG/HR.
[2020-07-01] VITALS (28 sets, daily range): BP systolic 100–131; BP diastolic 58–77
--- NOTE | 2020-07-01 | NUR ---
Temperature 101.5F. Cooling measures provided. Tylenol 650mg given as prescribed.
[2020-07-01] MEDS: ACETAMINOPHEN 325 MG TAB PO PRN ×2 (01:10→17:06)
[2020-07-01] MEDS: NOREPINEPHRINE 16 MG in DEXTROSE 5% 250 ML IV PRN ×3 (01:18→14:24)
--- NOTE | 2020-07-01 04:00 | NUR ---
BED BATH GIVEN. AM CARE PROVIDED.
[2020-07-01] MEDS: MIDAZOLAM MDV 100 MG in NACL 0.9% 80 ML IV PRN ×2 (05:37→18:34)
[2020-07-01] MEDS: LANSOPRAZOLE 30 MG CAPDR PO SCH (05:38)
[2020-07-01] MEDS: PIPERACILLIN/TAZOBACTAM 2.25 GM in DEXTROSE 5% 50 ML IV SCH ×3 (05:38→21:00)
[2020-07-01] MEDS: MIDODRINE 5 MG TAB PO SCH ×3 (05:44→18:30)
--- NOTE | 2020-07-01 06:00 | NUR ---
REMAIN INTUBATED WITH SAME VENT SETTINGS NOTED AT THE BEGINNING OF THE SHIFT. CHEST TUBE DRAINED 15ML OF SEROUS FLUID. NO DRAINAGE NOTED FROM BOTH BILIARY SUCTION. PRESENTED FEVER AT MID NOC, TYLENOL GIVEN WITH GOOD RESULTS: TEMPERATURE 97.9 COOLING MEASURE REMAINS IN PLACE.
[2020-07-01 06:23] LABS: ANION GAP 13.1 (8-16); CARBON DIOXIDE 22.9 mmol/L (21-32); CREATININE 3.2 mg/dL (0.6-1.3)
--- NOTE | 2020-07-01 07:25 | NUR ---
RECEIVED AN INTUBATED MALE PATIENT ATTACHED TO A VENTILATOR FROM SENIOR PLANNING MANAGER JULIO AT BEDSIDE FOR CONTINUITY OF CARE. VENTILATOR SETTINGS VERIFIED AT BEDSIDE. PATIENT IS ON SEDATION WITH FENTANYL & VERSED. RESPONDS TO TOUCH. CHEST TUBE IN PLACE AND TUBED VERIFIED & ARE IN PLACE AND WATER SEAL BUBBLING. TWO BILIARY DRAINAGE FOUND IN PLACE: ONE DRAINING A GREEN LIKE FLUID AND THE OTHER DRAINS SANGUINOUS FLUID. OGT IN PLACED & PLACEMENT VERIFIED BY AUSCULTATION. RECEIVING NEPRO AT 40mL/HR WITH NO WATER FLUSH AND WITH NO RESIDUAL. GODINEZ CATHETER DRAINING TO GRAVITY WITH DARK YELLOW URINE. NO DISTRESS NOTED. HOB 30 DEGREE UP, SAFETY PRECAUTIONS IN PLACE, BILATERAL SCDS AND HEEL RAISERS, BLISTERS ON BILATERAL FOOT, VERSATEL IN PLACE. WILL CONTINUE TO MONITOR PATIENT CLOSELY.
--- NOTE | 2020-07-01 08:45 | NUR ---
FLEXIBAG CHANGED, 300 ML OF LIQUID STOOL MEASURED, C DIFF SAMPLE SENT TO LAB, WILL WAIT FOR RESULTS.
--- NOTE | 2020-07-01 09:50 | NUR ---
AXILLARY TEMP 99.9, COOLING MEASURES IN PLACE. FLACC-0. DR. ZIMMER IN TO SEE THE PATIENT. WILL CONTINUE TO MONITOR PATIENT. Addendum: 07/01/20 at 1459 by Jason Koenig RN DR. PETE, SIGIFREDO ZIMMER.
--- NOTE | 2020-07-01 11:40 | NUR ---
BUILDING CONSTRUCTION IRONWORKER AT BEDSIDE. PT STARTING DIALYSIS. WILL CONTINUE TO MONITOR.
--- NOTE | 2020-07-01 13:05 | NUR ---
07/01/20 RD FOLLOW UP COMPLETED PLEASE REFER TO NUTRITION PROGRESS NOTE UNDER CARE ACTIVITY FOR ESTIMATED NUTRITION NEEDS. RD RECOMMENDATIONS: 1. CONTINUE NEPRO @ 55 ML/HR -THIS WILL PROVIDE 1320 ML OF VOLUME, 2376 KCAL, 107 GM OF PROTEIN. 2. CONTINUE FREE WATER FLUSH PER MD, 100ML Q6H 3. IF EXTUBATED, CONSIDER SWALLOW EVALUATION 4. RD TO FOLLOW-UP 2-3 DAYS, HIGH RISK MIKE CONKLIN, RD
[2020-07-01] MEDS: DEXT 5% / NACL 0.9% 500 ML IV SCH (13:25)
--- NOTE | 2020-07-01 14:35 | NUR ---
SPOKE TO DR. YU SOLIZ, REFRIGERATING TECHNICIAN, FOR RENAL CLEARANCE, ABOUT DR. BOYD'S PLAN OF HAVING PT DO CT ABD/PELVIS WITH CONTRAST AND POSSIBLE HD AFTERWARDS. DR. SOLIZ STATED THAT PT CAN HAVE DIALYSIS AFTER CT TOMORROW. RN VERBALIZED UNDERSTANDING.
[2020-07-01] MEDS: fentaNYL citrate 2.5 MG in NACL 0.9% 200 ML IV PRN (16:53)
--- NOTE | 2020-07-01 19:35 | NUR ---
RECEIVED PATIENT FROM AM SHIFT NURSE FOR CONTINUITY OF CARE. RASS -3. ETT TO VENT. VENT SETTINGS: AC/VC FIO2 32% RR 20 PEEP 5. RESPIRATIONS EVEN, UNLABORED. O2SAT 95%. S1/S2 AUSCULTATED. SKIN WARM, DRY. RIGHT UPPER ARM PICC NOTED, INFUSING VERSED, FENTANYL AND LEVOPHED. SALINE LOCK TO RIGHT AC 20G PATENT/INTACT. RIGHT IJ DESTINY CATHETER NOTED, DRESSING CLEAN/DRY AND INTACT. FLACC 0. ABDOMEN SOFT, NONTENDER. BOWEL SOUNDS ACTIVE X4 QUADRANTS. OGT PATENT, CONTINUES ON ENTERAL FEEDING, TOLERATING WELL. NO RESIDUAL NOTED. HOB UP 30 DEGREES. LIVER DRAIN PATENT WITH DARK RED DRAINAGE NOTED. BILE DRAIN PATENT WITH DARK BROWN DRAINAGE NOTED. GODINEZ CATHETER PATENT WITH YELLOW URINE NOTED. FLEXISEAL IN PLACE, DARK BROWN LIQUID STOOL NOTED. PLAN OF CARE DISCUSSED. SAFETY PRECAUTIONS IN PLACE.
--- NOTE | 2020-07-01 19:35 | NUR ---
REPORT GIVEN TO FIBROUS PLASTERER AT BEDSIDE FOR CONTINUITY OF CARE. PATIENT IN STABLE CONDITION.
--- NOTE | 2020-07-01 21:00 | NUR ---
DUE MEDS GIVEN. PATIENT TURNED AND REPOSITIONED. SUCTIONED NEEDED.
[2020-07-02] VITALS (43 sets, daily range): BP systolic 100–134; BP diastolic 60–86
[2020-07-02] MEDS: DEXT 5% / NACL 0.9% 500 ML IV SCH (01:01)
[2020-07-02] MEDS: NOREPINEPHRINE 16 MG in DEXTROSE 5% 250 ML IV PRN (01:50)
[2020-07-02] MEDS: PIPERACILLIN/TAZOBACTAM 2.25 GM in DEXTROSE 5% 50 ML IV SCH ×3 (04:30→20:01)
[2020-07-02] MEDS: fentaNYL citrate 1 MG in NACL 0.9% 80 ML IV PRN ×2 (05:40→15:50)
[2020-07-02] MEDS: MIDODRINE 5 MG TAB PO SCH ×3 (06:15→19:53)
[2020-07-02] MEDS: LANSOPRAZOLE 30 MG CAPDR PO SCH (06:15)
--- NOTE | 2020-07-02 07:10 | NUR ---
RECEIVED PT FROM TELEPHONE ORDER DISPATCHER TAMMIE HOOPER PT SEDATED W/ VERSED , FENTANYL AND LEVOPHED DRIP.W/ PATENT CONTRAPTIONS.RT @ BEDSIDE AND ORAL CARE DONE. SUCTIONED SECRETIONS AFTER.
[2020-07-02] MEDS: MIDAZOLAM MDV 100 MG in NACL 0.9% 80 ML IV PRN (07:30)
[2020-07-02 08:41] LABS: HEMATOCRIT 44.5 % (36-52); HEMOGLOBIN 14.3 g/dL (12.0-18.0); MEAN CORPUSCULAR HEMOGLOBIN 29 pg (27-31); MEAN CORPUSCULAR HGB CONC 32 g/dL (33-37); MEAN CORPUSCULAR VOLUME 89.9 fL (80-94); PLATELET COUNT (AUTO) 339 K/uL (140-450); RED BLOOD CELL COUNT(AUTO) 4.95 MIL/uL (4.20-6.10); RED CELL DISTRIBUTION WIDTH 17.2 % (11.6-13.7)
[2020-07-02 09:12] LABS: WHITE BLOOD COUNT (AUTO) 26.8 K/uL (4.8-10.8)
--- NOTE | 2020-07-02 09:45 | NUR ---
VISITED AND EXAMINED BY DR. Jen SOLIZ UPDATED TO PT'S CONDITION W/ ORDER NOTED AND CARRIED OUT. FOR HEMODIALYSIS IN AM.SURGICAL ELASTIC KNITTER HAND FRAME CHANEY AWARE. DR. MARIOLA SOLIZ CAME IN @ 0948 UPDATED TO PT'S CONDITION NO FURTHER ORDER MADE.
--- NOTE | 2020-07-02 10:45 | NUR ---
SEEN AND EXAMINED BY DR. BOYD UPDATES OF PT'S CONDITION GIVEN.NO FURTHER ORDER MADE.
[2020-07-02 10:59] LABS: BASOPHILS % (MANUAL) 0 % (0-2); EOSINOPHILS % (MANUAL) 0 % (0-4); LYMPHOCYTES % (MANUAL) 7 % (20-46); MONOCYTES % (MANUAL) 5 % (5-12)
[2020-07-02 11:28] LABS: ANION GAP 12.7 (8-16); CARBON DIOXIDE 25.1 mmol/L (21-32); CREATININE 2.4 mg/dL (0.6-1.3); POTASSIUM 3.8 mmol/L (3.5-5.1)
--- NOTE | 2020-07-02 12:45 | NUR ---
SEEN AND EXAMINED BY DR. WING GRIFFIN ON PT'S CONDITION NO NEW ORDER MADE.
--- NOTE | 2020-07-02 13:30 | NUR ---
DR LOPES CAME IN EXAMINED PT. UPDATED TO PT'S CONDITION.REPOSITIONED AND MAINTAINED ON 30 DEGREES HOB TO FACILITATE TO EASY BREATHING AND PREVENT ASPIRATION.
--- NOTE | 2020-07-02 15:00 | NUR ---
COMPLETE BED BATH DONE W/ ICE COLD WATER. ORAL CARE DONE. SUCTIONED SECRETIONS VIA ORAL AND ET TUBE.REPOSITIONED AFTER AND HOB @ 30 DEGREES @ ALL TIMES.
--- NOTE | 2020-07-02 18:53 | NUR ---
ALL NEEDS ATTENDED AND MET DURING THE SHIFT W/ PATENT CONTRAPTIONS,STILL SEDATED AND ON LEVOPHED DRIP.CONDITION UNCHANGED TO BE ENDORSED TO INCOMING CARD SERVICES SPECIALISTFINANCIAL REP FOR CONTINUITY OF CARE.
[2020-07-03] VITALS (53 sets, daily range): BP systolic 93–135; BP diastolic 50–82
[2020-07-03] MEDS: MIDAZOLAM MDV 100 MG in NACL 0.9% 80 ML IV PRN ×2 (01:02→10:00)
[2020-07-03] MEDS: DEXT 5% / NACL 0.9% 500 ML IV SCH ×3 (01:50→14:20)
[2020-07-03] MEDS: PIPERACILLIN/TAZOBACTAM 2.25 GM in DEXTROSE 5% 50 ML IV SCH ×3 (04:32→20:55)
[2020-07-03] MEDS: LANSOPRAZOLE 30 MG CAPDR PO SCH (06:02)
[2020-07-03] MEDS: MIDODRINE 5 MG TAB PO SCH ×3 (06:02→19:21)
[2020-07-03 06:27] LABS: ANION GAP 13.4 (8-16); MAGNESIUM 1.6 mg/dL (1.8-2.4); PHOSPHORUS 3.9 mg/dL (2.5-4.9); POTASSIUM 3.4 mmol/L (3.5-5.1)
[2020-07-03 06:35] LABS: BASOPHILS # (AUTO) 0.2 K/uL (0.00-0.22); BASOPHILS % (AUTO) 1.2 % (0.0-2.0); EOSINOPHILS # (AUTO) 0.4 K/uL (0-0.4); HEMATOCRIT 39.5 % (36-52); LYMPHOCYTES # (AUTO) 1.3 K/uL (2.0-11.5); LYMPHOCYTES % (AUTO) 6.5 % (20.5-51.1); MEAN CORPUSCULAR HEMOGLOBIN 29 pg (27-31); MEAN CORPUSCULAR HGB CONC 33 g/dL (33-37); MEAN CORPUSCULAR VOLUME 89.6 fL (80-94); MONOCYTES # (AUTO) 0.5 K/uL (0.8-1.0); MONOCYTES % (AUTO) 2.3 % (1.7-9.3); NEUTROPHILS # (AUTO) 17.7 K/uL (1.8-7.7); PLATELET COUNT (AUTO) 300 K/uL (140-450); RED BLOOD CELL COUNT(AUTO) 4.41 MIL/uL (4.20-6.10); RED CELL DISTRIBUTION WIDTH 16.6 % (11.6-13.7); WHITE BLOOD COUNT (AUTO) 20.2 K/uL (4.8-10.8)
--- NOTE | 2020-07-03 07:30 | NUR ---
RECEIVED PATIENT ON FENTANYL AT 1.5, VERSED AT 8, AND LEVO AT 12. PATIENT ON ETT TO VENT. ORAL AND ETT SUCTIONING DONE WITH MINIMAL SECRETIONS NOTED. PATIENT WITH ICE PACKS. TEMP AT THIS TIME 99.8 DONE AXILLARY. WITH RECTAL TUBE WITH LIQUID GREENISH OUTPUT NOTED. WITH FC AND GARRY COLOR OUTPUT NOTED. LIVER DRAIN X2 WITH MINIMAL OUT PUT NOTED. ALSO WITH RIGHT CHEST TUBE AND MINIMAL DARK YELLOWISH OUTPUT NOTED. PATIENT WITH HEEL PROTECTORS ON. OGT CLAMPED AT THIS TIME. PLAN IS FOR CT ABDOMEN WITH CONTRAST TODAY. PER NOC RN, FEEDING BEEN OFF SINCE MIDNIGHT. VITALS STABLE AT THIS TIME. WILL CONTINUE TO MONITOR AND ATTEND TO PATIENT NEEDS.
--- NOTE | 2020-07-03 07:45 | NUR ---
DR. MONTGOMERY, UROLOGIST, MADE ROUNDS. UPDATED ON PATIENT CONDITION. NO NEW ORDERS AT THIS TIME.
--- NOTE | 2020-07-03 09:20 | NUR ---
PATIENT DAUGHTER, MARISOL, WAS CALLED AND UPDATED ON PATIENT CURRENT CONDITION. OVER THE PHONE CONSENT OBTAINED FOR CT ABDOMEN WITH CONTRAST. CONSENT VERIFIED BY 2 RNS. CALLED AND SPOKE TO KATELYN FROM RADIOLOGY AND COORDINATED TO BRING PATIENT FOR CT AT 1030. CALLED SUMEET RT, AND TEST AND TURN UP TECHNICIAN ELOY, TO NOTIFY OF PLAN FOR CT AT 1030.
--- NOTE | 2020-07-03 10:40 | NUR ---
PATIENT BROUGHT TO CT. RADIOLOGY, RT, AND MYSELF PRESENT. TOLERATED CT WITHOUT ANY ISSUES. MONITOR CONNECTED TO PATIENT AT ALL TIMES. VITALS REMAINED STABLE THROUGHOUT. BACK TO ROOM AT 1100. PATIENT PLACED ON ICU BED. WILL CONTINUE TO MONITOR AND ATTEN D TO PATIENT NEEDS.
--- NOTE | 2020-07-03 14:50 | NUR ---
HR STARTED AT THIS TIME. HD RN AT BEDSIDE. CURRENTLY ON LEVO AT 12. BP 103/66. WILL CONTINUE TO MONITOR AND ATTEND TO PATIENT NEEDS. Addendum: 07/03/20 at 1451 by Mary Reeves RN RN CORRECTION, "HD STARTED AT THIS TIME"
[2020-07-03] MEDS: fentaNYL citrate 1 MG in NACL 0.9% 80 ML IV PRN (16:47)
--- NOTE | 2020-07-03 18:34 | NUR ---
HD COMPLETED. 2L OUT PER HD RN. VITALS STABLE. REMAINS ON LEVO AT 12. END OF SHIFT PATIENT APPEARS COMFORTABLE WITHOUT ANY NOTED S/S PAIN SOB OR DSITRESS. PATIENT CLEANED, BATHED, AND REPOSITIONED. PATIENT SUCTIONS VIA ETT AND ORALLY. MINIMAL SECRETIONS NOTED. WITH CT TO RIGHT SIDE, NO NOTED OUT PUT TODAY. LOWER LIVER DRAIN ON ABDOMEN WITHOUT ANY NOTED OUTPUT TODAY. FLUSHED DRAIN PER ORDER. UPPER LIVER DRAIN NOTED WITH 175 ML GREENISH OUTPUT. FLUSHED DRAIN PER ORDER. RECTAL TUBE WITH 400 ML OUTPUT, DARK COLORED LIQUID OUTPUT. GODINEZ WITH 900 ML OUTPUT OF DARK GARRY COLORED URINE. PATIENT REMAINS ON SEDATION FENTANYL AND VERSED. VITALS STABLE AT THIS TIME WITHOUT ANY NOTED S/S PAIN SOB OR DISTRESS. MARISOL, DAUGHTER, CALLED AND CONSENT OBTAINED FOR TOMORROW'S PROCEDURES X2. UNDERSTOOD AND STATED SHE DID SPEAK TO RADIOLOGY, IS AWARE OF PLAN FOR TOMORROW, AND CONSENT OBTAINED. VERIFIED BY 2 RNS. CONSENTS REMAIN IN CHART. WILL ENDORSE REPORT TO NOC RN FOR CONTINUITY OF CARE.
[2020-07-03] MEDS: NOREPINEPHRINE 16 MG in DEXTROSE 5% 250 ML IV PRN (20:58)
[2020-07-03] MEDS: ACETAMINOPHEN 325 MG TAB PO PRN (21:38)
[2020-07-03] MEDS: FLUCONAZOLE 200 MG/NS PREMIX 100 ML IV SCH (22:59)
[2020-07-04] VITALS (34 sets, daily range): BP systolic 99–136; BP diastolic 61–79
[2020-07-04] MEDS ORDERED: VANCOMYCIN PER PHARMACY MC PRN (00:45)
[2020-07-04] MEDS ORDERED: VANCOMYCIN 1GM/DEXT 5% PREMIX 200 ML IV SCH (01:05)
[2020-07-04] MEDS: DEXT 5% / NACL 0.9% 500 ML IV SCH ×2 (01:35→15:50)
[2020-07-04] MEDS ORDERED: VANCOMYCIN 1,000 MG VIAL ONE (02:09)
[2020-07-04] MEDS: MIDAZOLAM MDV 100 MG in NACL 0.9% 80 ML IV PRN (03:12)
[2020-07-04] MEDS: ACETAMINOPHEN 325 MG TAB PO PRN (05:35)
[2020-07-04] MEDS: PIPERACILLIN/TAZOBACTAM 2.25 GM in DEXTROSE 5% 50 ML IV SCH ×3 (05:36→20:08)
[2020-07-04] MEDS: fentaNYL citrate 1 MG in NACL 0.9% 80 ML IV PRN ×2 (05:43→12:45)
--- NOTE | 2020-07-04 06:00 | NUR ---
Patient sedated on Fantanyl & Versed; Levophed on to keep SBP>90 mmHg. SR on the scope; no ectopi. Temp=99.3 after cooling measures and Tylenol. Dr. Mendes made aware of fever; pt. started on Vancomycin as ordered per Rx. Pt. kept NPO after [address] guided Tube/Catheter replacements. Will cont. to monitor.
[2020-07-04 06:15] LABS: MAGNESIUM 1.6 mg/dL (1.8-2.4); PHOSPHORUS 4.1 mg/dL (2.5-4.9)
[2020-07-04 06:17] LABS: ANION GAP 11.4 (8-16); CREATININE 1.9 mg/dL (0.6-1.3); POTASSIUM 3.4 mmol/L (3.5-5.1)
[2020-07-04 06:19] LABS: PROTHROMBIN TIME 12.3 secs (10.8-13.4)
[2020-07-04 06:30] LABS: BASOPHILS # (AUTO) 0.2 K/uL (0.00-0.22); EOSINOPHILS # (AUTO) 0.8 K/uL (0-0.4); EOSINOPHILS % (AUTO) 4.1 % (0.0-4.0); HEMATOCRIT 41.2 % (36-52); HEMOGLOBIN 13.5 g/dL (12.0-18.0); LYMPHOCYTES # (AUTO) 1.4 K/uL (2.0-11.5); LYMPHOCYTES % (AUTO) 7.3 % (20.5-51.1); MEAN CORPUSCULAR HEMOGLOBIN 29 pg (27-31); MEAN CORPUSCULAR HGB CONC 33 g/dL (33-37); MEAN CORPUSCULAR VOLUME 89.7 fL (80-94); MONOCYTES # (AUTO) 0.6 K/uL (0.8-1.0); MONOCYTES % (AUTO) 3.1 % (1.7-9.3); NEUTROPHILS # (AUTO) 16.1 K/uL (1.8-7.7); NEUTROPHILS % (AUTO) 84.5 % (42.2-75.2); PLATELET COUNT (AUTO) 372 K/uL (140-450); RED CELL DISTRIBUTION WIDTH 17.3 % (11.6-13.7)
[2020-07-04] MEDS: LANSOPRAZOLE 30 MG CAPDR PO SCH (06:30)
[2020-07-04] MEDS: MIDODRINE 5 MG TAB PO SCH ×3 (07:00→20:08)
--- NOTE | 2020-07-04 07:15 | NUR ---
Report given to TAMMIE Bruno
--- NOTE | 2020-07-04 07:30 | NUR ---
RECEIVED ON A FantomAPE R860 VENTILATOR PLUGGED INTO RED OUTLET TOLERATING WELL WITHOUT ADVERSE REACTIONS NOTED TO AN ENDOTRACHEAL TUBE #8.0 SECURED AT 25cm TEETH/GUM LINE WITH AN ANCHOR FAST CUFF PRESSURE CHECKED NOTED AMBU BAG AT BEDSIDE NO SEDATION ON HOLD RESTING COMFORTABLY EQUAL CHEST RISE GOOD AERATION THROUGHOUT BILATERAL LUNG TAPIA AIRWAY PATENT
--- NOTE | 2020-07-04 09:37 | NUR ---
NO DISTRESS NOTED EQUAL CHEST RISE AIRWAY PATENT
--- NOTE | 2020-07-04 10:05 | NUR ---
TRANSFERRED TO CT SCAN FOR POSSIBLE CHEST DRAIN REPLACEMENT/MANIPULATION AND LIVER DRAIN TUBE REPLACEMENT/MANIPULATION TRANSFERRED ON VENTILATOR OXYGEN LINE CONNECTED TO SUPPLEMENTAL OXYGEN TO E-TANK (PSI 800) SATURATION 97% HR 101-115
--- NOTE | 2020-07-04 10:14 | NUR ---
IN CT SCAN VENTILATOR AND COMPRESSOR PLUGGED INTO RED OUTLET ON AND FUNCTIONING WELL TOLERATING WELL WITHOUT ADVERSE REACTIONS NOTED GOOD CHEST RISE
--- NOTE | 2020-07-04 10:15 | NUR ---
PATIENT ON CT SCAN TABLE IN FLAT POSITION TOLERATING VENTILATOR WELL WITHOUT COMPLICATIONS GOOD CHEST RISE AND AERATION THROUGHOUT BILATERAL LUNG TAPIA AIRWAY PATENT
--- NOTE | 2020-07-04 11:28 | NUR ---
TOLERATED PROCEDURE WELL WITHOUT ADVERSE REACTIONS NOTED REMAINS ON VENTILATOR WITH SETTINGS NOTED OXYGEN LINE TO E-TANK TRANSFERRED BACK ICU OVER FLOW 130-A SATURATION 98%
--- NOTE | 2020-07-04 11:35 | NUR ---
GOOD CHEST RISE ENDOTRACHEAL SUCTION FOR MODERATE THICK PALE YELLOW TO HAZY SECRETIONS AIRWAY PATENT
--- NOTE | 2020-07-04 13:27 | NUR ---
SEDATED RESTING WELL GOOD CHEST RISE ENDOTRACHEAL SUCTION FOR LARGE SEMI THICK PALE YELLOW SECRETIONS AIRWAY PATENT
--- NOTE | 2020-07-04 15:33 | NUR ---
STABLE NO DISTRESS NOTED GOOD CHEST RISE ENDOTRACHEAL TUBE SUCTION FOR LARGE SEMI THICK PALE YELLOW SECRETIONS AIRWAY PATENT
--- NOTE | 2020-07-04 15:44 | NUR ---
07/04/20 RD INITIAL ASSESSMENT COMPLETED PLEASE REFER TO NUTRITION ASSESSMENT UNDER CARE ACTIVITY FOR ESTIMATED NUTRITIONAL NEEDS. 1. CONTINUE NEPRO @ 55 ML/HR -THIS WILL PROVIDE 1320 ML OF VOLUME,2376KCAL, 107 GM OF PROTEIN. 2. CONTINUE FREE WATER FLUSH PER MD 100ML Q6H 3. IF EXTUBATED CONSIDER SWALLOW EVALUATION 4. RD TO FOLLOW-UP 2-3 DAYS, HIGH RISK NIKKI ESPINO RD
[2020-07-04] MEDS ORDERED: MAG SULF 2000 MG/WATER PREMIX 50 ML IV SCH (17:00)
--- NOTE | 2020-07-04 17:17 | NUR ---
SEDATED STABLE GOOD CHEST RISE ENDOTRACHEAL SUCTION FOR LARGE THICK PALE YELLOW TO HAZY SECRETIONS AIRWAY PATENT
--- NOTE | 2020-07-04 18:49 | NUR ---
Shift progress: Patient scheduled today for CT guided chest tube/liver drainage tube replacement/manipulation. Came back from CT, new chest tube site noted, old site covered with xeroform gauze and tegaderm, chest tube drained total of 900ml. Two liver tube drainage noted, one draining bright red blood, other draining brown liquid. At CT, drainage with bright red blood was removed, and only one liver drainage left. Bailey catheter drained about 700 mL. Patient is off sedation now, RASS of -2 remained. Tolerated mechanical ventilator. AM care given. Father visited at the window, MDs visited, NSR on the monitor. Continue with ICU status.
--- NOTE | 2020-07-04 19:31 | NUR ---
RECEIVED BEDSIDE REPORT FROM DAY RN. PT IS ETT TO VENT. VENT SETTINGS: AC/PRVC 30% VT 500 RR 20 +5 SAT WELL 96% RR 26. PT WITH BERTO PICC LINE INFUSING LEVO AT 4MCG/MIN TO MAINTAIN SBP >90 PT CURRENTLY OFF SEDATION TO MAINTAIN RASS -2. PT WITH R CHEST TUBE DRAINING DARK RED DRAINAGE CURRENTLY AT 1300CC. PT WITH RECTAL TUBE WITH BROWN LIQUID STOOL IN BAG, LIVER DRAINAGE BAG, SACRAL ULCER DRESSING IS C/D/I. SCDS ON. GODINEZ DRAINING CLEAR YELLOW DRAINAGE. OG TUBE WITH NEPRO AT 40CC/ FWF 100ML/Q4H. POC DISCUSSED. HD ACCESS ON R IJ. SAFETY MEASURES ARE IN PLACE. HOB ELEVATED. ALL SAFETY MEASURES ARE IN PLACE. WILL CONTINUE TO MONITOR.
--- NOTE | 2020-07-04 20:08 | NUR ---
VSS. ADMIN SAI MIDODRINE FOR BP 114/73 HR 108. SAI MEDICATION GIVEN PER ORDERS. PT WITH 20CC GASTRIC RESIDUALS TOLERATING FEEDING WELL. ORAL CARE GIVEN. PT DID NOT OPEN EYES GRIMING DURING ORAL CARE. PT CURRENTLY ONLY ON LEVO. HOB IS ELEVATED. SAFETY MEASURES ARE IN PLACE. WILL CONTINUE TO MONITOR.
[2020-07-04] MEDS: ALBUTEROL SULFATE/IPRATROPIU 3 ML SOL IH SCH (20:20)
--- NOTE | 2020-07-04 20:55 | NUR ---
Called [facility] for transfer to [facility], spoke with Faxed all requested documents Addendum: 07/05/20 at 0242 by Vic Raymond RN Phone #[phone] Fax #[phone]
--- NOTE | 2020-07-04 21:26 | NUR ---
Called [facility] for transfer to [facility], spoke with Faxed all requested documents Addendum: 07/05/20 at 0241 by Vic Raymond RN Phone #[phone] Fax #[phone]
--- NOTE | 2020-07-04 21:31 | NUR ---
Called [facility] for transfer to [facility], spoke with Faxed all requested documents Addendum: 07/05/20 at 0240 by Vic Raymond RN Phone #[phone] Fax #[phone]
--- NOTE | 2020-07-04 21:37 | NUR ---
Call[facility] Faxed all requested documents Addendum: 07/05/20 at 0239 by Vic Raymond RN Phone #[phone] Fax #[phone]
[2020-07-04] MEDS: FLUCONAZOLE 200 MG/NS PREMIX 100 ML IV SCH (21:45)
--- NOTE | 2020-07-04 22:10 | NUR ---
PATIENT REPOSITION. FAMILY AT BEDSIDE. SAFETY MEASURES ARE IN PLACE. WILL CONTINUE TO MONITOR.
--- NOTE | 2020-07-04 22:49 | NUR ---
Norma from [facility] called, and stated that there is no bed available at this time. Will call for bed availability
--- NOTE | 2020-07-04 23:25 | NUR ---
Demetri from [facility] called, and stated that there is no bed available at this time. Will call for bed availability
--- NOTE | 2020-07-04 23:30 | NUR ---
RESTARTED FENTANYL 1MCG/HR D/T INCREASED RESPIRATIONS AND WORK OF BREATHING RR 30-33. WILL CONTINUE TO MONITOR.
[2020-07-05] VITALS (32 sets, daily range): BP systolic 99–139; BP diastolic 57–86
--- NOTE | 2020-07-05 | NUR ---
REPOSITION PT. ORAL CARE PROVIDED. HOB ELEVATED. SAFETY MEASURES ARE IN PLACE. WILL CONTINUE TO MONITOR.
[2020-07-05] MEDS: ALBUTEROL SULFATE/IPRATROPIU 3 ML SOL IH SCH ×4 (02:02→19:51)
--- NOTE | 2020-07-05 02:21 | NUR ---
PATIENT WAS REPOSITION FOR COMFORT. HOB ELEVATED. SAFETY MEASURES ARE IN PLACE.
--- NOTE | 2020-07-05 02:42 | NUR ---
Called [facility] to follow up with the transfer, spoke with Rodriguez. Stated no bed available at this time, will call for bed availability
--- NOTE | 2020-07-05 02:45 | NUR ---
Call [facility] [phone], spoke with Marcell. Stated that Hepatobiliary MD wants to talk to the Admitting MD regarding the reason for transfer in the morning. Will let Dr Mendes know
--- NOTE | 2020-07-05 02:55 | NUR ---
Texted Dr Mendes regarding request from [facility] Hepatobilliary who wants to talk to Admitting MD
--- NOTE | 2020-07-05 04:30 | NUR ---
PT WAS CLEANED AND REPOSITION WITH ASSISTANCE OF ANOTHER RN. SACRAL DRESSING WAS CHANGED. PT TOLERATED WELL. ALL SAFETY MEASURES ARE IN PLACE. WILL CONTINUE TO MONITOR.
[2020-07-05] MEDS: DEXT 5% / NACL 0.9% 500 ML IV SCH ×2 (04:31→19:28)
[2020-07-05] MEDS: PIPERACILLIN/TAZOBACTAM 2.25 GM in DEXTROSE 5% 50 ML IV SCH ×3 (04:39→20:08)
[2020-07-05 06:01] LABS: ANION GAP 12.5 (8-16); CARBON DIOXIDE 23.9 mmol/L (21-32); CREATININE 1.6 mg/dL (0.6-1.3); MAGNESIUM 1.8 mg/dL (1.8-2.4); PHOSPHORUS 3.6 mg/dL (2.5-4.9); POTASSIUM 3.4 mmol/L (3.5-5.1)
[2020-07-05] MEDS: NOREPINEPHRINE 16 MG in DEXTROSE 5% 250 ML IV PRN (06:01)
[2020-07-05 06:03] LABS: HEMATOCRIT 40.2 % (36-52); HEMOGLOBIN 13.1 g/dL (12.0-18.0); MEAN CORPUSCULAR HEMOGLOBIN 30 pg (27-31); MEAN CORPUSCULAR HGB CONC 33 g/dL (33-37); MEAN CORPUSCULAR VOLUME 90.3 fL (80-94); PLATELET COUNT (AUTO) 296 K/uL (140-450); RED BLOOD CELL COUNT(AUTO) 4.46 MIL/uL (4.20-6.10); RED CELL DISTRIBUTION WIDTH 17.6 % (11.6-13.7); WHITE BLOOD COUNT (AUTO) 15.8 K/uL (4.8-10.8)
[2020-07-05] MEDS: LANSOPRAZOLE 30 MG CAPDR PO SCH (06:10)
[2020-07-05] MEDS: MIDODRINE 5 MG TAB PO SCH ×3 (06:10→19:33)
--- NOTE | 2020-07-05 06:12 | NUR ---
Dr Mendes texted and stated that Dr Olivarez is oncall. Texted Dr Olivarez [phone] to call [facility] [phone] regarding the reason for the transfer, also that Hepatobiliary MD wants to talk to the Admitting MD regarding the reason for transfer in the morning.
[2020-07-05 07:08] LABS: EOSINOPHILS % (MANUAL) 4 % (0-4); LYMPHOCYTES % (MANUAL) 5 % (20-46); MONOCYTES % (MANUAL) 3 % (5-12)
--- NOTE | 2020-07-05 07:15 | NUR ---
RECEIVED PT FROM ESTHETICIAN AND MANAGER MEDICAL SPA RN W/ PATENT CONTRAPTIONS. STILL ON FENTANYL AND LEVOPHED DRIP.NOT IN ANY FORM OF DISTRESS.ORAL CARE RENDERED SUCTIONED SECRETIONS AFTER.
--- NOTE | 2020-07-05 07:23 | NUR ---
GAVE BEDSIDE REPORT TO DAY RN. PT ENDORSED IN STABLE CONDITION.
--- NOTE | 2020-07-05 09:00 | NUR ---
VISITED BY DR. Annmarie GIVENS UPDATED TO PT'S CONDITION NO FURTHER ORDER MADE.
[2020-07-05] MEDS: fentaNYL citrate 1 MG in NACL 0.9% 80 ML IV PRN (10:15)
--- NOTE | 2020-07-05 12:00 | NUR ---
HAT LINING BLOCKER MIRA CAME IN SET UP HD MACHINE AND INITIATED HEMODIALYSIS. KEPT ON CLOSE WATCH FOR ANY ADVERSE REACTION. REMAINED ON SINUS TACHYCARDIA W/ RATE 100-120 BEATS/MIN.PT RESTING COMFORTABLY. AWAKE BUT NOT TRACKING NOR FOLLOW SIMPLE COMMAND.
[2020-07-05] MEDS ORDERED: MAG SULF 2000 MG/WATER PREMIX 50 ML IV SCH (15:00)
[2020-07-05] MEDS ORDERED: POTASSIUM CHLORIDE 20% 40 MEQ/15 ML UDC GT SCH (15:00)
--- NOTE | 2020-07-05 15:30 | NUR ---
HEMODIALYSIS COMPLETED AND TERMINATED. W/ 2000ML AN OUTPUT. PT'S V/S REMAINED STABLE. REGULATORY SCIENTIST ALUM CALLED UP AND CONFIRMED THAT [facility] ACCEPTED PT BUT NO BED AVAILABLE OF NOW.AND MADE HER AWARE THAT PT'S FAMILY WANTED A CONFERENCE MEETING W/ THE PRIMARY DOCTOR.CLAIMED THAT DR. Annmarie GIVENS AWARE AND WILL CALL PT'S DAUGHTER.TANGELA.
--- NOTE | 2020-07-05 16:30 | NUR ---
COMPLETE BED BATH DONE. ORAL CARE RENDERED AND SUCTIONED SECRETIONS AFTER.REPOSITIONED AND HOB @ 30 DEGREES @ ALL TIMES.BOTH UPPER AND LOWER LIMBS ELEVATED W/ PILLOWS.
--- NOTE | 2020-07-05 18:46 | NUR ---
[facility] transfer center called and declined the transfer and declined to accept the patient stated will close the case. Assigned nurse made aware, medical case worker made aware of the [facility] decision.
--- NOTE | 2020-07-05 18:54 | NUR ---
ALL NEEDS ATTENDED AND MET DURING THE SHIFT. PT'S CONDITION UNCHANGED,W/ PATENT CONTRAPTIONS TO BE ENDORSED TO INCOMING RN ON DUTY. FOR CONTINUITY OF CARE.
--- NOTE | 2020-07-05 19:06 | NUR ---
RECEIVED BEDSIDE REPORT FROM DAY RN. PT IS ETT TO VENT. VENT SETTINGS: AC/PRVC 30% VT 500 RR 20 +5 SAT WELL 96% RR 26. PT WITH BERTO PICC LINE INFUSING LEVO AT 6MCG/MIN TO MAINTAIN SBP >90 AND FENTANYL 1MCG/HR RASS -3. PT WITH R CHEST TUBE DRAINING DARK RED DRAINAGE CURRENTLY AT 1500CC BUBBLING NOTED IN WATER CHAMBER. PT WITH RECTAL TUBE WITH BROWN LIQUID STOOL IN BAG, LIVER DRAINAGE BAG CURRENTLY EMPTIED, SACRAL ULCER DRESSING IS C/D/I. SCDS ON. GODINEZ DRAINING YELLOW URINE WITH SEDIMENTS. OG TUBE WITH NEPRO AT 55CC/ FWF 100ML/Q6H. POC DISCUSSED. HD ACCESS ON R IJ. SAFETY MEASURES ARE IN PLACE. HOB ELEVATED. ALL SAFETY MEASURES ARE IN PLACE. WILL CONTINUE TO MONITOR.
--- NOTE | 2020-07-05 19:55 | NUR ---
SPOKE WITH PT'S DAUGHTER MARISOL BONILLA GAVE UPDATE. ALL QUESTIONS AND CONCERNS ANSWERED.
--- NOTE | 2020-07-05 20:08 | NUR ---
VITAL SIGNS ARE STABLE. ORAL CARE PROVIDED. DEEP SUCTION SMALL AMOUNT OF NGUYEN COLORED SECRETIONS. SAI MEDICATIONS GIVEN PER ORDERS. PT WAS REPOSITION. HOB ELEVATED. ALL SAFETY MEASURES ARE IN PLACE. WILL CONTINUE TO MONITOR.
[2020-07-05] MEDS: FLUCONAZOLE 200 MG/NS PREMIX 100 ML IV SCH (21:02)
--- NOTE | 2020-07-05 21:48 | NUR ---
DAUGHTER AND SON VISITING BY THE WINDOW. PT RESTING IN BED COMFORTABLY OPEN EYES AND BLINKS BUT DOES NOT TRACK NURSE. RR REMAIN EQUAL AND UNLABORED ON ETT TO VENT. HOB ELEVATED. SAFETY MEASURES ARE IN PLACE. WILL CONTINUE TO MONITOR.
[2020-07-06] VITALS (37 sets, daily range): BP systolic 94–143; BP diastolic 52–82
--- NOTE | 2020-07-06 00:35 | NUR ---
VITAL SIGNS ARE STABLE. PATIENT WAS CLEANED WITH ASSISTANCE OF ANOTHER RN. RECTAL BAG LEAKING STERILE WATER REMOVED 50CC AND ADVANCED APPROX 2 INCHES AND INFLATED BALLOON WITH 50CC OF STERILE WATER. WILL CONTINUE TO MONITOR FOR LEAKAGE. PT WAS REPOSITION. ORAL CARE PROVIDED. DEEP SUCTION SMALL AMOUNT OF NGUYEN COLORED SECRETIONS. HOB ELEVATED. SAFETY MEASURES ARE IN PLACE. WILL CONTINUE TO MONITOR.
[2020-07-06] MEDS: ALBUTEROL SULFATE/IPRATROPIU 3 ML SOL IH SCH ×4 (01:22→18:48)
[2020-07-06] MEDS: fentaNYL citrate 1 MG in NACL 0.9% 80 ML IV PRN (01:30)
--- NOTE | 2020-07-06 02:20 | NUR ---
ROUNDS MADE. PT RESTING IN BED WITH EYES CLOSED. CHEST RISE AND FALL NOTED. REMAINS ON SAME VENT SETTINGS. ALL SAFETY MEASURES ARE IN PLACE. WILL CONTINUE TO MONITOR.
--- NOTE | 2020-07-06 02:57 | NUR ---
SPOKE WITH HILLARY FROM [facility] [phone] HILLARY WANTED TO CONFORM IF THERE WAS STILL A NEED FOR PATIENT TO TRANSFER. INFORMED HIM PATIENT STILL NEEDS TO BE TRANSFERRED THERE HAS NOT BEEN ANY CHANGES IN CONDITION DURING NIGHT. PATIENT IS ON STANDARD ISOLATION. LAST COVID SWAB WAS ON 06/21 PER HILLARY TODAY WHEN HEPATOBILIARY MD AND ADMITTING MD SPEAK PROBABLY WILL NEED NEW COVID SWAB. DR GIVENS AND DR VALDIVIA ARE AWARE [facility] HEPATOBILIARY MD NEEDS TO SPEAK WITH ADMITTING MD WILL F/U.
--- NOTE | 2020-07-06 04:21 | NUR ---
PATIENT WAS CLEANED AND REPOSITION WITH ASSISTANCE OF ANOTHER RN SACRAL DRESSING WAS CHANGED. ORAL CARE PROVIDED. DEEP SUCTION NGUYEN COLORED SECTIONS. MAINTAIN HOB ELEVATED. ALL SAFETY MEASURES ARE IN PLACE. WILL CONTINUE TO MONITOR.
[2020-07-06] MEDS: PIPERACILLIN/TAZOBACTAM 2.25 GM in DEXTROSE 5% 50 ML IV SCH (04:46)
[2020-07-06 06:03] LABS: ANION GAP 11.2 (8-16); CARBON DIOXIDE 25.7 mmol/L (21-32); CREATININE 1.3 mg/dL (0.6-1.3); POTASSIUM 3.9 mmol/L (3.5-5.1)
[2020-07-06 06:24] LABS: MAGNESIUM 2.2 mg/dL (1.8-2.4); PHOSPHORUS 3.6 mg/dL (2.5-4.9)
[2020-07-06] MEDS: MIDODRINE 5 MG TAB PO SCH ×3 (06:26→18:45)
[2020-07-06] MEDS: DEXT 5% / NACL 0.9% 500 ML IV SCH (06:26)
[2020-07-06] MEDS: LANSOPRAZOLE 30 MG CAPDR PO SCH (06:26)
[2020-07-06 06:30] LABS: BASOPHILS # (AUTO) 0.2 K/uL (0.00-0.22); EOSINOPHILS # (AUTO) 0.7 K/uL (0-0.4); EOSINOPHILS % (AUTO) 4.6 % (0.0-4.0); HEMOGLOBIN 12.9 g/dL (12.0-18.0); LYMPHOCYTES # (AUTO) 0.9 K/uL (2.0-11.5); LYMPHOCYTES % (AUTO) 5.6 % (20.5-51.1); MEAN CORPUSCULAR HEMOGLOBIN 29 pg (27-31); MEAN CORPUSCULAR HGB CONC 32 g/dL (33-37); MEAN CORPUSCULAR VOLUME 91.1 fL (80-94); MONOCYTES # (AUTO) 0.5 K/uL (0.8-1.0); MONOCYTES % (AUTO) 3.2 % (1.7-9.3); NEUTROPHILS # (AUTO) 13.5 K/uL (1.8-7.7); NEUTROPHILS % (AUTO) 85.6 % (42.2-75.2); PLATELET COUNT (AUTO) 311 K/uL (140-450); RED BLOOD CELL COUNT(AUTO) 4.39 MIL/uL (4.20-6.10); RED CELL DISTRIBUTION WIDTH 17.7 % (11.6-13.7); WHITE BLOOD COUNT (AUTO) 15.8 K/uL (4.8-10.8)
--- NOTE | 2020-07-06 07:11 | NUR ---
GAVE BEDSIDE REPORT TO DAY RN. PT ENDORSED IN STABLE CONDITION.
--- NOTE | 2020-07-06 07:15 | NUR ---
RECEIVED PT FROM PACK OPERATOR RN AWAKE NOT TRACKING NON RESPONSIVE TO VERBAL COMMAND BUT WITHDRAWS TO PAIN. W/ PATENT CONTRAPTIONS,STILL ON LEVOPHED AND FENTANYL DRIP. NO FACIAL GRIMACES SEEN.
--- NOTE | 2020-07-06 09:30 | NUR ---
DR. GIVENS CAME IN AND UPDATED TO PT'S CONDITION CLAIMED HE HAD A FAMILY CONFERENCE TODAY.NO FURTHER ORDER MADE.
--- NOTE | 2020-07-06 10:30 | NUR ---
VISITED BY DR. NEWTON UPDATES GIVEN ON PT'S CONDITION. STILL PT. TRANSFER TO HIGHER LEVEL OF CARE PENDING.
--- NOTE | 2020-07-06 11:30 | NUR ---
DR. MONTGOMERY CAME IN UPDATED TO PT'S CONDITION PT MORE AWAKE AND FOLLOW SIMPLE COMMAND.SLEPT @ SHORT INTERVALS. CONDITION GUARDED.NO FACIAL GRIMACES SEEN.RESTING COMFORTABLY ON BED.
[2020-07-06] MEDS ORDERED: fentaNYL citrate - 50mL vial 2.5 MG in NACL 0.9% 200 ML IV PRN (13:00)
[2020-07-06] MEDS ORDERED: VANCOMYCIN 1,000 MG in DEXTROSE 5% 250 ML IV SCH (14:00)
--- NOTE | 2020-07-06 14:00 | NUR ---
DR. BOYD CAME IN EXAMINED PT. SPOKE W/ ALUM (HEALTH THERAPIST ) REGARDING PT'S TRANSFER. STILL AWAITING FOR BED AVAILABILITY IN [facility].
--- NOTE | 2020-07-06 16:30 | NUR ---
COMPLETE BED BATH DONE. ORAL CARE DONE. SUCTIONED SECRETIONS VIA ORAL AND ET TUBE AFTER,REPOSITIONED.PT SLEPT AFTER.MAINTAINED ON 30 DEGREES HOB @ ALL TIMES.
[2020-07-06] MEDS ORDERED: PIPERACILLIN/TAZOBACTAM 3.375 GM in DEXTROSE 5% 50 ML IV SCH ×2 (17:00→21:00)
--- NOTE | 2020-07-06 18:47 | NUR ---
ALL NEEDS ATTENDED AND MET DURING THE SHIFT.PT'S CONDITION W/ MINIMAL CHANGES.W/ PATENT CONTRAPTIONS. FOR CONTINUITY OF CARE.TO BE ENDORSED TO CLINICAL FIELD SPECIALISTPROFESSOR OF THEATRE.
--- NOTE | 2020-07-06 19:26 | NUR ---
faxed covid result to [facility] spoke to magda,
--- NOTE | 2020-07-06 19:40 | NUR ---
RECEIVED REPORT FROM DAYSHIFT NURSE AT BEDSIDE. PT ETT TO VENT, AC PRVC FI02 30%, TV 500, RATE 20, PEEP 5. PT OPENS EYES SPONTANEOUSLY, SOME TRACKING NOTED, ABLE TO FOLLOW SOME SIMPLE COMMANDS. RIJ DESTINY CATH IN PLACE, DRESSING DRY AND INTACT. RIGHT UA PICC, INFUSING FENTANYL 1 MCG/KG/HR AND LEVOPHED 6 MCG/MIN. DRY WEIGHT 84 KG, RASS -1. OGT IN PLACE, NEPRO AT ORDERED RATE. RIGHT LATERAL CHEST TUBE TO CONTINUOUS SUCTION, OUTPUT NOTED 200ML FOR DAYSHIFT, HEMOSTAT AT BEDSIDE. RIGHT LOWER LATERAL SIDE BILIARY DRAIN, GREENISH BROWN DRAINAGE NOTED. GODINEZ CATHETER IN PLACE, HANGING BY GRAVITY, GARRY URINE NOTED. RECTAL TUBE IN PLACE, LIQUID BROWN STOOL NOTED. ABDOMEN LARGE AND SOFT, BOWEL SOUNDS ACTIVE. SKIN WARM AND DRY, NOT INTACT, LARGE UNSTAGEABLE SACRAL WOUND, OPTIFOAM DRESSING IN PLACE. RIGHT FOOT BLISTER, DRESSING DRY AND INTACT. HEEL PROTECTORS IN PLACE. SCD'S IN PLACE. CONTINUOUS CARDIAC MONITORING. FLACC 0, HOB GREATER THAN 30 DEGREES, SIDE RAILS UP, BED LOCKED AND IN LOWEST POSITION, WILL CONTINUE TO MONITOR.
--- NOTE | 2020-07-06 20:15 | NUR ---
PROVIDED ORAL CARE, PT ORIENTED TO TREATMENT AND PLAN OF CARE, UNABLE TO NOD HEAD YES OR NO. FOLLOWS SOME COMMANDS. WITH RT AT BEDSIDE, TURNED AND REPOSITIONED PATIENT, OFFLOADED PRESSURE AREAS. WILL CONTINUE TO MONITOR.
--- NOTE | 2020-07-06 20:32 | NUR ---
RECEIVED CALL, BED AVAILABLE AT [facility] FOR TRANSFER TO HIGHER LEVEL OF CARE. CHARGE NURSE AND CREW LEADER GLUING AWARE.
--- NOTE | 2020-07-06 21:04 | NUR ---
CALL MADE TO [facility], REPORT GIVEN TO TAMMIE COOK. WILL FOLLOW UP WITH ETA.
[2020-07-06] MEDS: FLUCONAZOLE 200 MG/NS PREMIX 100 ML IV SCH (21:20)
--- NOTE | 2020-07-06 22:15 | NUR ---
CALLED MADE TO [facility], MADE AWARE OF PATIENTS ETA.
--- NOTE | 2020-07-06 22:40 | NUR ---
PT OFF UNIT, REPORT GIVEN TO ACLS RN YULIANA ELLIS (CELL PHONE HEMATOLOGIST ONCOLOGIST) AND PACKET GIVEN TO RN. TRANSFER OF CARE AT THIS TIME. VITALS ASSESSED, NO DISTRESS NOTED. CALLED PT's DAUGHTER TANGELA, MADE AWARE PT BEING TRANSPORTED.
[2020-07-07] MEDS ORDERED: PIPERACILLIN/TAZOBACTAM 3.375 GM in DEXTROSE 5% 50 ML IV SCH ×2
== END 2020-07-06 22:45 | disposition short-term general hospital (02) | DRG 871 ==
LOC: MED 06:10 → MTU 09:24 → MMU 16:34
PROVIDERS: ADMIT Family Medicine; ATTEND Family Medicine
PROC: 02HV33Z Insertion of Infusion Device into Superior Vena Cava, Percutaneous Approach (ICD-10-PCS; 2020-06-23)
PROC: B548ZZA Ultrasonography of Superior Vena Cava, Guidance (ICD-10-PCS; 2020-06-23)
PROC: 0F9030Z Drainage of Liver with Drainage Device, Percutaneous Approach (ICD-10-PCS; 2020-06-23)
PROC: 30233K1 Transfusion of Nonautologous Frozen Plasma into Peripheral Vein, Percutaneous Approach (ICD-10-PCS; 2020-06-23)
PROC: 30233R1 Transfusion of Nonautologous Platelets into Peripheral Vein, Percutaneous Approach (ICD-10-PCS; 2020-06-23)
PROC: 05PYX3Z Removal of Infusion Device from Upper Vein, External Approach (ICD-10-PCS; 2020-06-25)
PROC: 02HV33Z Insertion of Infusion Device into Superior Vena Cava, Percutaneous Approach (ICD-10-PCS; 2020-06-25)
PROC: B24BZZ4 Ultrasonography of Heart with Aorta, Transesophageal (ICD-10-PCS; principal; 2020-06-26)
PROC: 0F9030Z Drainage of Liver with Drainage Device, Percutaneous Approach (ICD-10-PCS; 2020-06-28)
PROC: 0W9930Z Drainage of Right Pleural Cavity with Drainage Device, Percutaneous Approach (ICD-10-PCS; 2020-06-28)
PROC: 0FB03ZX Excision of Liver, Percutaneous Approach, Diagnostic (ICD-10-PCS; 2020-06-28)
PROC: 0W9930Z Drainage of Right Pleural Cavity with Drainage Device, Percutaneous Approach (ICD-10-PCS; 2020-07-04)
DX: A41.9 Sepsis, unspecified organism (principal); E43 Unspecified severe protein-calorie malnutrition; J96.01 Acute respiratory failure with hypoxia; K75.0 Abscess of liver; R65.21 Severe sepsis with septic shock; J18.9 Pneumonia, unspecified organism; N17.0 Acute kidney failure with tubular necrosis; I82.0 Budd-Chiari syndrome; E87.1 Hypo-osmolality and hyponatremia; D73.3 Abscess of spleen; D75.1 Secondary polycythemia; K72.90 Hepatic failure, unspecified without coma; K80.20 Calculus of gallbladder without cholecystitis without obstruction; N18.9 Chronic kidney disease, unspecified; R13.11 Dysphagia, oral phase; E87.5 Hyperkalemia; R16.2 Hepatomegaly with splenomegaly, not elsewhere classified; D69.6 Thrombocytopenia, unspecified; E83.42 Hypomagnesemia; Z86.79 Personal history of other diseases of the circulatory system; Z87.891 Personal history of nicotine dependence; Z20.822 Contact with and (suspected) exposure to COVID-19
CPT/HCPCS: 31500; 36415; 71045; 71250; 71260; 74170; 75989; 76360; 76604; 76700; 76705; 76942; 78445; 80048; 80053; 80076; 80202; 80305; 81001; 82105; 82140; 82150; 82272; 82378; 82570; 82607; 82668; 82728; 82746; 82948; 82977; 83036; 83540; 83605; 83615; 83690; 83735; 83880; 83891; 83900; 83909; 83912; 84100; 84132; 84154; 84300; 84439; 84443; 84484; 85025; 85045; 85610; 85730; 86704; 86706; 86708; 86709; 86803; 86886; 86900; 86901; 86920; 87040; 87070; 87075; 87081; 87086; 87186; 87205; 87340; 93005; 93308; 94002; 94003; 94640; 96361; 96365; 96367; 96375; 99285; A4330; C1729; C1758; C9113; J0456; J0696; J1160; J1170; J1450; J1644; J2001; J2250; J2270; J2405; J2543; J3010; J3370; J3430; J3475; J3490; J7030; J7042; J7060; P9017; P9035; P9046; Q9967; U0003

== ENCOUNTER 2020-07-19 21:35 | Inpatient (IN) | payer BC, SELFPAY ==
[~2020-07-19] VITALS: Ht 170.2 cm; Wt 83.9 kg
[2020-07-19] MEDS ORDERED: NACL 0.9% 1,000 ML IV SCH (22:20)
[2020-07-19 22:35] VITALS: BP 129/90
[2020-07-19 22:54] LABS: BASOPHILS # (AUTO) 0.1 K/uL (0.00-0.22); BASOPHILS % (AUTO) 0.9 % (0.0-2.0); EOSINOPHILS # (AUTO) 0.3 K/uL (0-0.4); EOSINOPHILS % (AUTO) 1.9 % (0.0-4.0); HEMATOCRIT 36.2 % (36-52); HEMOGLOBIN 11.7 g/dL (12.0-18.0); LYMPHOCYTES # (AUTO) 1.1 K/uL (2.0-11.5); MEAN CORPUSCULAR HEMOGLOBIN 31 pg (27-31); MEAN CORPUSCULAR HGB CONC 32 g/dL (33-37); MEAN CORPUSCULAR VOLUME 95.6 fL (80-94); MONOCYTES # (AUTO) 0.6 K/uL (0.8-1.0); MONOCYTES % (AUTO) 3.6 % (1.7-9.3); NEUTROPHILS # (AUTO) 13.6 K/uL (1.8-7.7); NEUTROPHILS % (AUTO) 86.6 % (42.2-75.2); PLATELET COUNT (AUTO) 174 K/uL (140-450); RED BLOOD CELL COUNT(AUTO) 3.79 MIL/uL (4.20-6.10); RED CELL DISTRIBUTION WIDTH 28.3 % (11.6-13.7); WHITE BLOOD COUNT (AUTO) 15.7 K/uL (4.8-10.8)
[2020-07-19 23:11] LABS: ANION GAP 8.7 (8-16); CARBON DIOXIDE 26.9 mmol/L (21-32); CREATININE 0.6 mg/dL (0.6-1.3); POTASSIUM 3.6 mmol/L (3.5-5.1); TOTAL BILIRUBIN 0.9 mg/dL (0.0-1.0)
[2020-07-20] VITALS: BP 131/94
[2020-07-20] MEDS ORDERED: ZINC OXIDE 20% 60 GM TUBE TP SCH (01:00)
[2020-07-20] MEDS ORDERED: ACETAMINOPHEN 325 MG TAB PO PRN ×2 (02:55→07:50)
[2020-07-20] MEDS ORDERED: ALBUTEROL SULFATE/IPRATROPIU 3 ML SOL IH PRN (02:55)
[2020-07-20 04:00] VITALS: BP 134/94
[2020-07-20] MEDS: metroNIDAZOLE 500 MG/NS PREMIX 100 ML IV SCH ×3 (04:34→20:29)
[2020-07-20 05:44] LABS: BASOPHILS # (AUTO) 0.2 K/uL (0.00-0.22); BASOPHILS % (AUTO) 1.2 % (0.0-2.0); EOSINOPHILS # (AUTO) 0.3 K/uL (0-0.4); EOSINOPHILS % (AUTO) 2.1 % (0.0-4.0); HEMATOCRIT 36.7 % (36-52); HEMOGLOBIN 11.8 g/dL (12.0-18.0); LYMPHOCYTES # (AUTO) 1.1 K/uL (2.0-11.5); LYMPHOCYTES % (AUTO) 6.8 % (20.5-51.1); MEAN CORPUSCULAR HEMOGLOBIN 31 pg (27-31); MEAN CORPUSCULAR HGB CONC 32 g/dL (33-37); MONOCYTES # (AUTO) 0.6 K/uL (0.8-1.0); MONOCYTES % (AUTO) 3.7 % (1.7-9.3); NEUTROPHILS # (AUTO) 13.9 K/uL (1.8-7.7); NEUTROPHILS % (AUTO) 86.2 % (42.2-75.2); PLATELET COUNT (AUTO) 169 K/uL (140-450); RED BLOOD CELL COUNT(AUTO) 3.79 MIL/uL (4.20-6.10); RED CELL DISTRIBUTION WIDTH 28.6 % (11.6-13.7); WHITE BLOOD COUNT (AUTO) 16.2 K/uL (4.8-10.8)
[2020-07-20] MEDS ORDERED: DOCUSATE SODIUM 100 MG GELCAP PO PRN (07:50)
[2020-07-20] MEDS ORDERED: MORPHINE SULFATE 2 MG/ML SYR IVP PRN (07:50)
[2020-07-20] MEDS: NACL 0.9% 1,000 ML IV SCH ×2 (07:50→18:08)
[2020-07-20] MEDS ORDERED: LORazepam 2 MG/ML VIAL IM/IVP PRN (07:50)
[2020-07-20] MEDS ORDERED: ZOLPIDEM 5 MG TAB PO PRN (07:50)
[2020-07-20] MEDS ORDERED: ONDANSETRON 4 MG/2 ML VIAL IVP PRN (07:50)
[2020-07-20 08:00] VITALS: BP 131/91
[2020-07-20] MEDS: ASCORBIC ACID 500 MG TAB PO SCH ×2 (08:58→20:30)
[2020-07-20] MEDS: MAGNESIUM OXIDE 400 MG TAB PO SCH ×2 (08:58→20:30)
[2020-07-20] MEDS: PANTOPRAZOLE 40 MG INJ VIAL IVP SCH (08:58)
[2020-07-20] MEDS: ZINC SULF 220 MG CAP PO SCH (08:58)
[2020-07-20] MEDS: SENNA 8.6 MG TAB PO SCH ×3 (08:59→20:37)
[2020-07-20] MEDS: TAMSULOSIN 0.4 MG CAP PO SCH (08:59)
[2020-07-20] MEDS: MULTIVITAMIN 1 TAB PO SCH (08:59)
[2020-07-20] MEDS: POLYETHYLENE GLYCOL 17 GM/PKT PO SCH (08:59)
[2020-07-20] MEDS: POTASSIUM CHLORIDE 10 MEQ TABER PO SCH (08:59)
[2020-07-20] MEDS: ENOXAPARIN 80 MG/0.8 ML SYR SUBQ SCH ×2 (09:00→20:29)
[2020-07-20 09:23] LABS: ANION GAP 11.9 (8-16); CARBON DIOXIDE 24.9 mmol/L (21-32); CREATININE 0.6 mg/dL (0.6-1.3); POTASSIUM 3.8 mmol/L (3.5-5.1); TOTAL BILIRUBIN 0.9 mg/dL (0.0-1.0)
[2020-07-20 10:04] LABS: APPEARANCE,URINE CLEAR (CLEAR); BILIRUBIN,URINE NEGATIVE (NEGATIVE); BLOOD, URINE 2+ (NEGATIVE); COLOR,URINE YELLOW (YELLOW); LEUKOCYTE ESTERASE ,URINE 1+ (NEGATIVE); NITRITE, URINE NEGATIVE (NEGATIVE); UGLUCOSE NEGATIVE (NEGATIVE)
[2020-07-20 10:09] LABS: PROTHROMBIN TIME 16.1 secs (10.8-13.4)
[2020-07-20 10:19] LABS: CHOL/HDL RATIO 3.2 (1-4.5); FREE T4 (FREE THYROXINE) 0.99 ng/dL (0.76-1.46); MAGNESIUM 1.4 mg/dL (1.8-2.4); THYROID STIMULATING HORMONE 13.95 uIU/mL (0.34-3.74)
[2020-07-20 10:24] LABS: RBC,URINE 20-50 /HPF (0-5)
[2020-07-20] MEDS ORDERED: MAG SULF 2000 MG/WATER PREMIX 50 ML IV SCH (11:00)
[2020-07-20 12:00] VITALS: BP 127/93
[2020-07-20] MEDS: ZINC OXIDE 20% 60 GM TUBE TP SCH (13:40)
[2020-07-20 16:00] VITALS: BP 129/89
[2020-07-20] MEDS: cefTRIAXone 2,000 MG in DEXTROSE 5% 100 ML IV SCH (18:04)
[2020-07-20 20:00] VITALS: BP_SYST 112; BP_SYST 131; BP_DIAS 77; BP_DIAS 91
[2020-07-20] MEDS: MELATONIN 3 MG TAB PO SCH (20:30)
[2020-07-21] VITALS: BP 100/64
[2020-07-21] MEDS: ZINC OXIDE 20% 60 GM TUBE TP SCH (00:37)
[2020-07-21] MEDS: NACL 0.9% 1,000 ML IV SCH ×2 (02:58→15:35)
[2020-07-21 04:00] VITALS: BP 123/91
[2020-07-21] MEDS: metroNIDAZOLE 500 MG/NS PREMIX 100 ML IV SCH ×3 (04:14→21:06)
[2020-07-21 08:00] VITALS: BP 132/90
[2020-07-21] MEDS: SENNA 8.6 MG TAB PO SCH (09:00)
[2020-07-21] MEDS: POLYETHYLENE GLYCOL 17 GM/PKT PO SCH (09:00)
[2020-07-21 09:10] LABS: BASOPHILS # (AUTO) 0.2 K/uL (0.00-0.22); BASOPHILS % (AUTO) 1.1 % (0.0-2.0); EOSINOPHILS # (AUTO) 0.3 K/uL (0-0.4); EOSINOPHILS % (AUTO) 1.8 % (0.0-4.0); HEMATOCRIT 36.2 % (36-52); LYMPHOCYTES # (AUTO) 1.1 K/uL (2.0-11.5); LYMPHOCYTES % (AUTO) 7.2 % (20.5-51.1); MEAN CORPUSCULAR HEMOGLOBIN 32 pg (27-31); MEAN CORPUSCULAR HGB CONC 33 g/dL (33-37); MONOCYTES # (AUTO) 0.6 K/uL (0.8-1.0); MONOCYTES % (AUTO) 3.9 % (1.7-9.3); NEUTROPHILS # (AUTO) 13.2 K/uL (1.8-7.7); PLATELET COUNT (AUTO) 206 K/uL (140-450); RED BLOOD CELL COUNT(AUTO) 3.77 MIL/uL (4.20-6.10); RED CELL DISTRIBUTION WIDTH 28.4 % (11.6-13.7); WHITE BLOOD COUNT (AUTO) 15.4 K/uL (4.8-10.8)
[2020-07-21] MEDS: ENOXAPARIN 80 MG/0.8 ML SYR SUBQ SCH ×2 (09:43→21:07)
[2020-07-21] MEDS: MAGNESIUM OXIDE 400 MG TAB PO SCH ×2 (09:44→21:41)
[2020-07-21] MEDS: ZINC SULF 220 MG CAP PO SCH (09:44)
[2020-07-21] MEDS: MULTIVITAMIN 1 TAB PO SCH (09:44)
[2020-07-21] MEDS: ASCORBIC ACID 500 MG TAB PO SCH ×2 (09:44→21:06)
[2020-07-21] MEDS: TAMSULOSIN 0.4 MG CAP PO SCH (09:45)
[2020-07-21] MEDS: PANTOPRAZOLE 40 MG INJ VIAL IVP SCH (09:45)
[2020-07-21] MEDS: POTASSIUM CHLORIDE 10 MEQ TABER PO SCH (09:45)
[2020-07-21 10:37] LABS: ALBUMIN 1.8 g/dL (3.4-5.0); ANION GAP 10.6 (8-16); CREATININE 0.5 mg/dL (0.6-1.3); MAGNESIUM 1.4 mg/dL (1.8-2.4); PHOSPHORUS 3.4 mg/dL (2.5-4.9); POTASSIUM 3.6 mmol/L (3.5-5.1); TOTAL BILIRUBIN 0.8 mg/dL (0.0-1.0)
[2020-07-21] MEDS ORDERED: MAG SULF 2000 MG/WATER PREMIX 50 ML IV ONE (11:25)
[2020-07-21 12:00] VITALS: BP 137/96
[2020-07-21] MEDS: HYDRAGUARD CREAM TP SCH (13:46)
[2020-07-21 16:00] VITALS: BP 133/79
[2020-07-21] MEDS: cefTRIAXone 2,000 MG in DEXTROSE 5% 100 ML IV SCH (18:45)
[2020-07-21 20:00] VITALS: BP 137/89
[2020-07-21] MEDS: FAMOTIDINE 20 MG TAB PO SCH (21:06)
[2020-07-21] MEDS: MELATONIN 3 MG TAB PO SCH (21:06)
[2020-07-22] VITALS: BP 126/87
[2020-07-22] MEDS: HYDRAGUARD CREAM TP SCH ×2 (02:43→12:25)
[2020-07-22 04:00] VITALS: BP 139/88
[2020-07-22] MEDS: metroNIDAZOLE 500 MG/NS PREMIX 100 ML IV SCH ×3 (04:36→21:02)
[2020-07-22 07:12] LABS: BASOPHILS # (AUTO) 0.4 K/uL (0.00-0.22); BASOPHILS % (AUTO) 2.3 % (0.0-2.0); EOSINOPHILS # (AUTO) 0.3 K/uL (0-0.4); EOSINOPHILS % (AUTO) 1.9 % (0.0-4.0); HEMATOCRIT 35.9 % (36-52); HEMOGLOBIN 11.8 g/dL (12.0-18.0); LYMPHOCYTES % (AUTO) 6.6 % (20.5-51.1); MEAN CORPUSCULAR HEMOGLOBIN 32 pg (27-31); MEAN CORPUSCULAR HGB CONC 33 g/dL (33-37); MEAN CORPUSCULAR VOLUME 97.1 fL (80-94); MONOCYTES # (AUTO) 0.6 K/uL (0.8-1.0); MONOCYTES % (AUTO) 3.9 % (1.7-9.3); NEUTROPHILS # (AUTO) 13.2 K/uL (1.8-7.7); NEUTROPHILS % (AUTO) 85.3 % (42.2-75.2); PLATELET COUNT (AUTO) 220 K/uL (140-450); RED CELL DISTRIBUTION WIDTH 28.6 % (11.6-13.7); WHITE BLOOD COUNT (AUTO) 15.5 K/uL (4.8-10.8)
[2020-07-22 07:19] LABS: ANION GAP 9.3 (8-16); CARBON DIOXIDE 26.2 mmol/L (21-32); CREATININE 0.5 mg/dL (0.6-1.3); POTASSIUM 3.5 mmol/L (3.5-5.1)
[2020-07-22 07:27] LABS: MAGNESIUM 1.3 mg/dL (1.8-2.4); PHOSPHORUS 3.4 mg/dL (2.5-4.9)
[2020-07-22 08:00] VITALS: BP 142/97
[2020-07-22] MEDS: FAMOTIDINE 20 MG TAB PO SCH ×2 (08:58→20:55)
[2020-07-22] MEDS: POTASSIUM CHLORIDE 10 MEQ TABER PO SCH (08:58)
[2020-07-22] MEDS: TAMSULOSIN 0.4 MG CAP PO SCH (08:59)
[2020-07-22] MEDS: MAGNESIUM OXIDE 400 MG TAB PO SCH ×2 (08:59→20:55)
[2020-07-22] MEDS: ZINC SULF 220 MG CAP PO SCH (08:59)
[2020-07-22] MEDS: POLYETHYLENE GLYCOL 17 GM/PKT PO SCH (09:00)
[2020-07-22] MEDS: ASCORBIC ACID 500 MG TAB PO SCH ×2 (09:00→20:55)
[2020-07-22] MEDS: MULTIVITAMIN 1 TAB PO SCH (09:00)
[2020-07-22] MEDS: ENOXAPARIN 80 MG/0.8 ML SYR SUBQ SCH ×2 (09:01→20:57)
[2020-07-22] MEDS ORDERED: MAG SULF 2000 MG/WATER PREMIX 100 ML IV ONE (10:15)
[2020-07-22] MEDS ORDERED: FUROSEMIDE 20 MG TAB PO SCH (10:15)
[2020-07-22] MEDS ORDERED: POTASSIUM CHLORIDE 20% 40 MEQ/15 ML UDC GT SCH (10:15)
[2020-07-22] MEDS ORDERED: POTASSIUM CHLORIDE 10 MEQ TABER PO SCH (11:05)
[2020-07-22 12:00] VITALS: BP 135/92
[2020-07-22 16:00] VITALS: BP 115/83
[2020-07-22] MEDS: cefTRIAXone 2,000 MG in DEXTROSE 5% 100 ML IV SCH (17:43)
[2020-07-22] MEDS: FUROSEMIDE 40 MG/4 ML VIAL IVP SCH (17:43)
[2020-07-22 20:00] VITALS: BP 123/88
[2020-07-22] MEDS: MELATONIN 3 MG TAB PO SCH (20:55)
[2020-07-23] VITALS: BP 126/77
[2020-07-23] MEDS: HYDRAGUARD CREAM TP SCH ×2 (01:00→13:08)
[2020-07-23 04:00] VITALS: BP 119/77
[2020-07-23] MEDS: metroNIDAZOLE 500 MG/NS PREMIX 100 ML IV SCH ×3 (05:10→21:49)
[2020-07-23 07:07] LABS: BASOPHILS # (AUTO) 0.1 K/uL (0.00-0.22); BASOPHILS % (AUTO) 0.8 % (0.0-2.0); EOSINOPHILS # (AUTO) 0.3 K/uL (0-0.4); EOSINOPHILS % (AUTO) 1.7 % (0.0-4.0); HEMATOCRIT 36.7 % (36-52); HEMOGLOBIN 12.1 g/dL (12.0-18.0); LYMPHOCYTES # (AUTO) 0.9 K/uL (2.0-11.5); LYMPHOCYTES % (AUTO) 6.1 % (20.5-51.1); MEAN CORPUSCULAR HEMOGLOBIN 32 pg (27-31); MEAN CORPUSCULAR HGB CONC 33 g/dL (33-37); MEAN CORPUSCULAR VOLUME 97.1 fL (80-94); MONOCYTES # (AUTO) 0.6 K/uL (0.8-1.0); MONOCYTES % (AUTO) 4.1 % (1.7-9.3); NEUTROPHILS % (AUTO) 87.3 % (42.2-75.2); PLATELET COUNT (AUTO) 239 K/uL (140-450); RED BLOOD CELL COUNT(AUTO) 3.78 MIL/uL (4.20-6.10); RED CELL DISTRIBUTION WIDTH 29.1 % (11.6-13.7); WHITE BLOOD COUNT (AUTO) 14.9 K/uL (4.8-10.8)
[2020-07-23 07:11] LABS: ANION GAP 8.1 (8-16); CARBON DIOXIDE 26.6 mmol/L (21-32); CREATININE 0.5 mg/dL (0.6-1.3); POTASSIUM 3.7 mmol/L (3.5-5.1)
[2020-07-23 08:00] VITALS: BP 122/90
[2020-07-23] MEDS: ZINC SULF 220 MG CAP PO SCH (08:30)
[2020-07-23] MEDS: MAGNESIUM OXIDE 400 MG TAB PO SCH ×2 (08:31→21:48)
[2020-07-23] MEDS: MULTIVITAMIN 1 TAB PO SCH (08:31)
[2020-07-23] MEDS: ASCORBIC ACID 500 MG TAB PO SCH ×2 (08:31→21:48)
[2020-07-23] MEDS: FAMOTIDINE 20 MG TAB PO SCH ×2 (08:31→21:49)
[2020-07-23] MEDS: POTASSIUM CHLORIDE 10 MEQ TABER PO SCH (08:32)
[2020-07-23] MEDS: FUROSEMIDE 40 MG/4 ML VIAL IVP SCH (08:32)
[2020-07-23] MEDS: ENOXAPARIN 80 MG/0.8 ML SYR SUBQ SCH (08:45)
[2020-07-23] MEDS: TAMSULOSIN 0.4 MG CAP PO SCH (08:48)
[2020-07-23 12:00] VITALS: BP 137/89
[2020-07-23] MEDS: HYDROcodone/APAP 5/325 MG 1 TAB TAB PO PRN (14:49)
[2020-07-23 16:00] VITALS: BP 117/70
[2020-07-23] MEDS: cefTRIAXone 2,000 MG in DEXTROSE 5% 100 ML IV SCH (17:38)
[2020-07-23 20:00] VITALS: BP 124/86
[2020-07-23] MEDS: MELATONIN 3 MG TAB PO SCH (21:48)
[2020-07-24] VITALS (12 sets, daily range): BP systolic 115–141; BP diastolic 81–99
[2020-07-24] MEDS: HYDRAGUARD CREAM TP SCH ×2 (01:14→13:07)
[2020-07-24] MEDS: metroNIDAZOLE 500 MG/NS PREMIX 100 ML IV SCH ×3 (04:41→20:29)
[2020-07-24 05:30] LABS: CARBON DIOXIDE 27.5 mmol/L (21-32); CREATININE 0.5 mg/dL (0.6-1.3); POTASSIUM 3.5 mmol/L (3.5-5.1)
[2020-07-24 05:53] LABS: BASOPHILS # (AUTO) 0.2 K/uL (0.00-0.22); BASOPHILS % (AUTO) 1.4 % (0.0-2.0); EOSINOPHILS # (AUTO) 0.2 K/uL (0-0.4); EOSINOPHILS % (AUTO) 1.6 % (0.0-4.0); HEMATOCRIT 35.5 % (36-52); HEMOGLOBIN 11.9 g/dL (12.0-18.0); LYMPHOCYTES # (AUTO) 1.2 K/uL (2.0-11.5); LYMPHOCYTES % (AUTO) 7.9 % (20.5-51.1); MEAN CORPUSCULAR HEMOGLOBIN 33 pg (27-31); MEAN CORPUSCULAR HGB CONC 34 g/dL (33-37); MEAN CORPUSCULAR VOLUME 97.4 fL (80-94); MONOCYTES # (AUTO) 0.7 K/uL (0.8-1.0); MONOCYTES % (AUTO) 4.6 % (1.7-9.3); NEUTROPHILS # (AUTO) 12.5 K/uL (1.8-7.7); NEUTROPHILS % (AUTO) 84.5 % (42.2-75.2); PLATELET COUNT (AUTO) 233 K/uL (140-450); RED BLOOD CELL COUNT(AUTO) 3.65 MIL/uL (4.20-6.10); RED CELL DISTRIBUTION WIDTH 28.3 % (11.6-13.7); WHITE BLOOD COUNT (AUTO) 14.8 K/uL (4.8-10.8)
[2020-07-24 06:51] LABS: PROTHROMBIN TIME 14.8 secs (10.8-13.4)
[2020-07-24] MEDS: TAMSULOSIN 0.4 MG CAP PO SCH ×2 (08:30→09:09)
[2020-07-24] MEDS: POTASSIUM CHLORIDE 10 MEQ TABER PO SCH (09:09)
[2020-07-24] MEDS: FAMOTIDINE 20 MG TAB PO SCH ×2 (09:10→20:29)
[2020-07-24] MEDS: MAGNESIUM OXIDE 400 MG TAB PO SCH ×2 (09:10→20:29)
[2020-07-24] MEDS: ZINC SULF 220 MG CAP PO SCH (09:10)
[2020-07-24] MEDS: ASCORBIC ACID 500 MG TAB PO SCH ×2 (09:10→20:29)
[2020-07-24] MEDS: MULTIVITAMIN 1 TAB PO SCH (09:10)
[2020-07-24] MEDS: FUROSEMIDE 40 MG/4 ML VIAL IVP SCH (09:11)
[2020-07-24] MEDS ORDERED: BUPIVACAINE-MPF/EPI 0.25% 30 ML VIAL INJ ONE (13:21)
[2020-07-24] MEDS ORDERED: LIDOCAINE 1% 500 MG/50 ML VIAL ONE (13:21)
[2020-07-24] MEDS ORDERED: HYDROGEN PEROXIDE 3% 240 ML BTL TP ONE (13:28)
[2020-07-24] MEDS ORDERED: MIDAZOLAM 2 MG/2 ML VIAL ONE (13:30)
[2020-07-24] MEDS ORDERED: fentaNYL citrate 0.05 MG/ML VIAL ONE (13:30)
[2020-07-24] MEDS ORDERED: ONDANSETRON 4 MG/2 ML VIAL ONE (13:30)
[2020-07-24] MEDS ORDERED: DEXAMETHASONE 4 MG/ML VIAL ONE (13:30)
[2020-07-24] MEDS ORDERED: NACL 0.9% 1,000 ML IV SCH (14:10)
[2020-07-24] MEDS ORDERED: HYDROmorphone 1 MG/ML AMP IVP PRN (14:10)
[2020-07-24] MEDS ORDERED: MEPERIDINE 25 MG/ML SYR IVP PRN (14:10)
[2020-07-24] MEDS ORDERED: ONDANSETRON 4 MG/2 ML VIAL IVP PRN (14:10)
[2020-07-24] MEDS: cefTRIAXone 2,000 MG in DEXTROSE 5% 100 ML IV SCH (18:03)
[2020-07-24] MEDS: MELATONIN 3 MG TAB PO SCH (20:29)
[2020-07-25] VITALS: BP 138/99
[2020-07-25] MEDS: HYDRAGUARD CREAM TP SCH ×2 (01:45→13:30)
[2020-07-25 04:00] VITALS: BP 125/82
[2020-07-25] MEDS: metroNIDAZOLE 500 MG/NS PREMIX 100 ML IV SCH ×3 (05:17→21:26)
[2020-07-25 08:00] VITALS: BP 116/82
[2020-07-25] MEDS: ASCORBIC ACID 500 MG TAB PO SCH ×2 (09:38→21:25)
[2020-07-25] MEDS: MULTIVITAMIN 1 TAB PO SCH (09:39)
[2020-07-25] MEDS: FAMOTIDINE 20 MG TAB PO SCH ×2 (09:39→21:26)
[2020-07-25] MEDS: POTASSIUM CHLORIDE 10 MEQ TABER PO SCH (09:39)
[2020-07-25] MEDS: ZINC SULF 220 MG CAP PO SCH (09:39)
[2020-07-25] MEDS: TAMSULOSIN 0.4 MG CAP PO SCH (09:39)
[2020-07-25] MEDS: MAGNESIUM OXIDE 400 MG TAB PO SCH ×2 (09:40→21:26)
[2020-07-25] MEDS: FUROSEMIDE 40 MG/4 ML VIAL IVP SCH (09:40)
[2020-07-25] MEDS: HYDROcodone/APAP 5/325 MG 1 TAB TAB PO PRN ×2 (11:45→18:18)
[2020-07-25 12:00] VITALS: BP 130/83
[2020-07-25 15:43] LABS: BASOPHILS # (AUTO) 0.2 K/uL (0.00-0.22); BASOPHILS % (AUTO) 1.3 % (0.0-2.0); EOSINOPHILS # (AUTO) 0.2 K/uL (0-0.4); EOSINOPHILS % (AUTO) 1.9 % (0.0-4.0); HEMOGLOBIN 11.1 g/dL (12.0-18.0); LYMPHOCYTES # (AUTO) 1.3 K/uL (2.0-11.5); LYMPHOCYTES % (AUTO) 10.2 % (20.5-51.1); MEAN CORPUSCULAR HEMOGLOBIN 33 pg (27-31); MEAN CORPUSCULAR HGB CONC 34 g/dL (33-37); MEAN CORPUSCULAR VOLUME 98.1 fL (80-94); MONOCYTES # (AUTO) 0.6 K/uL (0.8-1.0); MONOCYTES % (AUTO) 4.6 % (1.7-9.3); NEUTROPHILS # (AUTO) 10.3 K/uL (1.8-7.7); PLATELET COUNT (AUTO) 194 K/uL (140-450); RED BLOOD CELL COUNT(AUTO) 3.36 MIL/uL (4.20-6.10); RED CELL DISTRIBUTION WIDTH 28.2 % (11.6-13.7); WHITE BLOOD COUNT (AUTO) 12.6 K/uL (4.8-10.8)
[2020-07-25 16:00] VITALS: BP 119/84
[2020-07-25 16:02] LABS: MAGNESIUM 1.1 mg/dL (1.8-2.4); PHOSPHORUS 3.3 mg/dL (2.5-4.9)
[2020-07-25] MEDS ORDERED: MAG SULF 2000 MG/WATER PREMIX 50 ML IV SCH (17:00)
[2020-07-25] MEDS: cefTRIAXone 2,000 MG in DEXTROSE 5% 100 ML IV SCH (17:05)
[2020-07-25 19:09] LABS: ANION GAP 11.1 (8-16); CARBON DIOXIDE 26.6 mmol/L (21-32); CREATININE 0.6 mg/dL (0.6-1.3); POTASSIUM 3.7 mmol/L (3.5-5.1)
[2020-07-25 20:00] VITALS: BP 112/79
[2020-07-25] MEDS: MELATONIN 3 MG TAB PO SCH (21:25)
[2020-07-26] VITALS: BP 118/79
[2020-07-26] MEDS: HYDRAGUARD CREAM TP SCH ×2 (01:00→14:27)
[2020-07-26 04:00] VITALS: BP 116/83
[2020-07-26] MEDS: metroNIDAZOLE 500 MG/NS PREMIX 100 ML IV SCH ×3 (04:46→21:00)
[2020-07-26] MEDS: HYDROcodone/APAP 5/325 MG 1 TAB TAB PO PRN ×3 (05:15→20:38)
[2020-07-26 08:00] VITALS: BP 121/92
[2020-07-26] MEDS: TAMSULOSIN 0.4 MG CAP PO SCH (08:43)
[2020-07-26] MEDS: MAGNESIUM OXIDE 400 MG TAB PO SCH ×2 (08:43→20:34)
[2020-07-26] MEDS: POTASSIUM CHLORIDE 10 MEQ TABER PO SCH (08:43)
[2020-07-26] MEDS: FUROSEMIDE 40 MG/4 ML VIAL IVP SCH (08:44)
[2020-07-26] MEDS: ASCORBIC ACID 500 MG TAB PO SCH ×2 (08:44→20:35)
[2020-07-26] MEDS: FAMOTIDINE 20 MG TAB PO SCH ×2 (08:44→20:34)
[2020-07-26] MEDS: ZINC SULF 220 MG CAP PO SCH (08:44)
[2020-07-26] MEDS: MULTIVITAMIN 1 TAB PO SCH (08:44)
[2020-07-26 09:34] LABS: BASOPHILS # (AUTO) 0.1 K/uL (0.00-0.22); EOSINOPHILS # (AUTO) 0.3 K/uL (0-0.4); EOSINOPHILS % (AUTO) 2.3 % (0.0-4.0); HEMATOCRIT 36.9 % (36-52); HEMOGLOBIN 12.2 g/dL (12.0-18.0); LYMPHOCYTES # (AUTO) 1.1 K/uL (2.0-11.5); LYMPHOCYTES % (AUTO) 7.5 % (20.5-51.1); MEAN CORPUSCULAR HEMOGLOBIN 33 pg (27-31); MEAN CORPUSCULAR HGB CONC 33 g/dL (33-37); MEAN CORPUSCULAR VOLUME 98.2 fL (80-94); MONOCYTES # (AUTO) 0.6 K/uL (0.8-1.0); NEUTROPHILS # (AUTO) 12.1 K/uL (1.8-7.7); NEUTROPHILS % (AUTO) 85.2 % (42.2-75.2); PLATELET COUNT (AUTO) 227 K/uL (140-450); RED BLOOD CELL COUNT(AUTO) 3.76 MIL/uL (4.20-6.10); RED CELL DISTRIBUTION WIDTH 27.7 % (11.6-13.7); WHITE BLOOD COUNT (AUTO) 14.2 K/uL (4.8-10.8)
[2020-07-26 09:45] LABS: ANION GAP 9.7 (8-16); CARBON DIOXIDE 29.1 mmol/L (21-32); CREATININE 0.5 mg/dL (0.6-1.3); POTASSIUM 3.8 mmol/L (3.5-5.1)
[2020-07-26 09:51] LABS: MAGNESIUM 1.4 mg/dL (1.8-2.4); PHOSPHORUS 3.4 mg/dL (2.5-4.9)
[2020-07-26 12:00] VITALS: BP 117/83
[2020-07-26] MEDS: THERAHONEY GEL 42.5 GM TP SCH (13:00)
[2020-07-26 16:00] VITALS: BP 112/79
[2020-07-26] MEDS ORDERED: MAG SULF 2000 MG/WATER PREMIX 100 ML IV ONE (17:35)
[2020-07-26] MEDS: cefTRIAXone 2,000 MG in DEXTROSE 5% 100 ML IV SCH (17:49)
[2020-07-26 20:00] VITALS: BP 115/77
[2020-07-26] MEDS: MELATONIN 3 MG TAB PO SCH (20:36)
[2020-07-27] VITALS: BP 93/68
[2020-07-27] MEDS: HYDRAGUARD CREAM TP SCH ×2 (01:15→12:55)
[2020-07-27] MEDS: HYDROcodone/APAP 5/325 MG 1 TAB TAB PO PRN ×3 (04:30→23:01)
[2020-07-27 04:31] VITALS: BP 111/73
[2020-07-27 06:05] LABS: BASOPHILS # (AUTO) 0.2 K/uL (0.00-0.22); BASOPHILS % (AUTO) 1.3 % (0.0-2.0); EOSINOPHILS # (AUTO) 0.3 K/uL (0-0.4); EOSINOPHILS % (AUTO) 2.7 % (0.0-4.0); HEMATOCRIT 34.2 % (36-52); HEMOGLOBIN 11.4 g/dL (12.0-18.0); LYMPHOCYTES # (AUTO) 0.9 K/uL (2.0-11.5); LYMPHOCYTES % (AUTO) 7.5 % (20.5-51.1); MEAN CORPUSCULAR HEMOGLOBIN 33 pg (27-31); MEAN CORPUSCULAR HGB CONC 33 g/dL (33-37); MEAN CORPUSCULAR VOLUME 98.5 fL (80-94); MONOCYTES # (AUTO) 0.6 K/uL (0.8-1.0); MONOCYTES % (AUTO) 4.9 % (1.7-9.3); NEUTROPHILS # (AUTO) 10.4 K/uL (1.8-7.7); NEUTROPHILS % (AUTO) 83.6 % (42.2-75.2); PLATELET COUNT (AUTO) 254 K/uL (140-450); RED BLOOD CELL COUNT(AUTO) 3.47 MIL/uL (4.20-6.10); RED CELL DISTRIBUTION WIDTH 27.4 % (11.6-13.7); WHITE BLOOD COUNT (AUTO) 12.4 K/uL (4.8-10.8)
[2020-07-27 06:06] LABS: ANION GAP 7.3 (8-16); CARBON DIOXIDE 31.4 mmol/L (21-32); CREATININE 0.5 mg/dL (0.6-1.3); POTASSIUM 3.7 mmol/L (3.5-5.1); TOTAL BILIRUBIN 0.5 mg/dL (0.0-1.0)
[2020-07-27 08:00] VITALS: BP 112/89
[2020-07-27] MEDS: TAMSULOSIN 0.4 MG CAP PO SCH (09:11)
[2020-07-27] MEDS: AMOXIL/CLAVULANATE 875/125 MG 1 TAB PO SCH ×2 (09:14→22:43)
[2020-07-27] MEDS: FUROSEMIDE 40 MG/4 ML VIAL IVP SCH (09:14)
[2020-07-27] MEDS: MULTIVITAMIN 1 TAB PO SCH (09:15)
[2020-07-27] MEDS: FAMOTIDINE 20 MG TAB PO SCH ×2 (09:15→22:43)
[2020-07-27] MEDS: POTASSIUM CHLORIDE 10 MEQ TABER PO SCH (09:15)
[2020-07-27] MEDS: MAGNESIUM OXIDE 400 MG TAB PO SCH ×2 (09:15→22:43)
[2020-07-27] MEDS: ASCORBIC ACID 500 MG TAB PO SCH ×2 (09:15→22:43)
[2020-07-27] MEDS: ZINC SULF 220 MG CAP PO SCH (09:16)
[2020-07-27 12:00] VITALS: BP 123/84
[2020-07-27] MEDS: THERAHONEY GEL 42.5 GM TP SCH (12:55)
[2020-07-27 16:00] VITALS: BP 121/81
[2020-07-27] MEDS ORDERED: MAG SULF 2000 MG/WATER PREMIX 100 ML IV SCH (16:30)
[2020-07-27] MEDS: SPIRONOLACTONE 50 MG TAB PO SCH (16:46)
[2020-07-27 20:00] VITALS: BP 118/82
[2020-07-27] MEDS: MELATONIN 3 MG TAB PO SCH (22:43)
[2020-07-27] MEDS ORDERED: MAG SULF 2000 MG/WATER PREMIX 50 ML IV ONE (23:28)
[2020-07-28] VITALS: BP 116/82
[2020-07-28] MEDS: HYDRAGUARD CREAM TP SCH ×2 (01:01→13:12)
[2020-07-28 04:00] VITALS: BP 126/84
[2020-07-28 05:41] LABS: BASOPHILS # (AUTO) 0.1 K/uL (0.00-0.22); BASOPHILS % (AUTO) 1.2 % (0.0-2.0); EOSINOPHILS # (AUTO) 0.4 K/uL (0-0.4); HEMATOCRIT 32.7 % (36-52); LYMPHOCYTES # (AUTO) 1.1 K/uL (2.0-11.5); LYMPHOCYTES % (AUTO) 8.8 % (20.5-51.1); MEAN CORPUSCULAR HEMOGLOBIN 33 pg (27-31); MEAN CORPUSCULAR HGB CONC 34 g/dL (33-37); MEAN CORPUSCULAR VOLUME 99.1 fL (80-94); MONOCYTES # (AUTO) 0.6 K/uL (0.8-1.0); MONOCYTES % (AUTO) 4.9 % (1.7-9.3); NEUTROPHILS # (AUTO) 9.9 K/uL (1.8-7.7); NEUTROPHILS % (AUTO) 82.1 % (42.2-75.2); PLATELET COUNT (AUTO) 249 K/uL (140-450); RED CELL DISTRIBUTION WIDTH 27.8 % (11.6-13.7); WHITE BLOOD COUNT (AUTO) 12.1 K/uL (4.8-10.8)
[2020-07-28 06:01] LABS: CARBON DIOXIDE 31.9 mmol/L (21-32); CREATININE 0.5 mg/dL (0.6-1.3); POTASSIUM 3.9 mmol/L (3.5-5.1); TOTAL BILIRUBIN 0.7 mg/dL (0.0-1.0)
[2020-07-28 08:00] VITALS: BP 114/74
[2020-07-28] MEDS: HYDROcodone/APAP 5/325 MG 1 TAB TAB PO PRN ×3 (08:22→20:30)
[2020-07-28] MEDS: POTASSIUM CHLORIDE 10 MEQ TABER PO SCH (08:23)
[2020-07-28] MEDS: ZINC SULF 220 MG CAP PO SCH (08:24)
[2020-07-28] MEDS: ASCORBIC ACID 500 MG TAB PO SCH ×2 (08:24→20:29)
[2020-07-28] MEDS: TAMSULOSIN 0.4 MG CAP PO SCH (08:24)
[2020-07-28] MEDS: levoFLOXacin 750 MG TAB PO SCH (08:25)
[2020-07-28] MEDS: AMOXIL/CLAVULANATE 875/125 MG 1 TAB PO SCH ×2 (08:25→20:29)
[2020-07-28] MEDS: MULTIVITAMIN 1 TAB PO SCH (08:25)
[2020-07-28] MEDS: SPIRONOLACTONE 50 MG TAB PO SCH (08:26)
[2020-07-28] MEDS: MAGNESIUM OXIDE 400 MG TAB PO SCH ×2 (08:26→20:30)
[2020-07-28] MEDS: FAMOTIDINE 20 MG TAB PO SCH ×2 (08:26→20:30)
[2020-07-28] MEDS: FUROSEMIDE 40 MG/4 ML VIAL IVP SCH (08:27)
[2020-07-28] MEDS ORDERED: MAGN241.1 PO (10:58)
[2020-07-28] MEDS ORDERED: AMOX-999 PO (10:58)
[2020-07-28] MEDS ORDERED: SPIR50TA PO (10:58)
[2020-07-28] MEDS ORDERED: TAMS0.4C96 PO (10:58)
[2020-07-28] MEDS ORDERED: LEVO750T51 PO (10:58)
[2020-07-28 12:00] VITALS: BP 114/78
[2020-07-28] MEDS: THERAHONEY GEL 42.5 GM TP SCH (13:12)
[2020-07-28 16:00] VITALS: BP 119/79
[2020-07-28 20:00] VITALS: BP 111/77
[2020-07-28] MEDS: MELATONIN 3 MG TAB PO SCH (20:30)
[2020-07-29] VITALS: BP 107/70
[2020-07-29] MEDS: HYDRAGUARD CREAM TP SCH ×2 (01:50→13:06)
[2020-07-29] MEDS: HYDROcodone/APAP 5/325 MG 1 TAB TAB PO PRN ×3 (02:40→20:09)
[2020-07-29 04:00] VITALS: BP 121/84
[2020-07-29 06:36] LABS: BASOPHILS # (AUTO) 0.1 K/uL (0.00-0.22); BASOPHILS % (AUTO) 0.6 % (0.0-2.0); EOSINOPHILS # (AUTO) 0.4 K/uL (0-0.4); EOSINOPHILS % (AUTO) 3.1 % (0.0-4.0); HEMATOCRIT 31.5 % (36-52); HEMOGLOBIN 10.5 g/dL (12.0-18.0); LYMPHOCYTES # (AUTO) 1.1 K/uL (2.0-11.5); LYMPHOCYTES % (AUTO) 8.8 % (20.5-51.1); MEAN CORPUSCULAR HEMOGLOBIN 33 pg (27-31); MEAN CORPUSCULAR HGB CONC 34 g/dL (33-37); MEAN CORPUSCULAR VOLUME 99.2 fL (80-94); MONOCYTES # (AUTO) 0.8 K/uL (0.8-1.0); MONOCYTES % (AUTO) 6.4 % (1.7-9.3); NEUTROPHILS # (AUTO) 10.2 K/uL (1.8-7.7); NEUTROPHILS % (AUTO) 81.1 % (42.2-75.2); PLATELET COUNT (AUTO) 254 K/uL (140-450); RED BLOOD CELL COUNT(AUTO) 3.18 MIL/uL (4.20-6.10); WHITE BLOOD COUNT (AUTO) 12.5 K/uL (4.8-10.8)
[2020-07-29 07:08] LABS: ANION GAP 8.1 (8-16); CREATININE 0.5 mg/dL (0.6-1.3); POTASSIUM 4.1 mmol/L (3.5-5.1); TOTAL BILIRUBIN 0.7 mg/dL (0.0-1.0)
[2020-07-29 08:00] VITALS: BP 123/93
[2020-07-29] MEDS: SPIRONOLACTONE 50 MG TAB PO SCH (09:23)
[2020-07-29] MEDS: TAMSULOSIN 0.4 MG CAP PO SCH (09:23)
[2020-07-29] MEDS: FAMOTIDINE 20 MG TAB PO SCH ×2 (09:24→20:11)
[2020-07-29] MEDS: AMOXIL/CLAVULANATE 875/125 MG 1 TAB PO SCH ×2 (09:24→20:10)
[2020-07-29] MEDS: MAGNESIUM OXIDE 400 MG TAB PO SCH ×2 (09:24→20:11)
[2020-07-29] MEDS: POTASSIUM CHLORIDE 10 MEQ TABER PO SCH (09:24)
[2020-07-29] MEDS: MULTIVITAMIN 1 TAB PO SCH (09:25)
[2020-07-29] MEDS: ZINC SULF 220 MG CAP PO SCH (09:25)
[2020-07-29] MEDS: ASCORBIC ACID 500 MG TAB PO SCH ×2 (09:25→20:11)
[2020-07-29] MEDS: FUROSEMIDE 40 MG/4 ML VIAL IVP SCH (09:28)
[2020-07-29] MEDS ORDERED: MAG SULF 2000 MG/WATER PREMIX 50 ML IV SCH (10:30)
[2020-07-29 12:00] VITALS: BP 112/72
[2020-07-29] MEDS: THERAHONEY GEL 42.5 GM TP SCH (13:26)
[2020-07-29] MEDS ORDERED: POTASSIUM CHLORIDE 10 MEQ TABER PO PRN (15:20)
[2020-07-29] MEDS ORDERED: MAG SULF 2000 MG/WATER PREMIX 50 ML IV PRN (15:20)
[2020-07-29 16:00] VITALS: BP 115/82
[2020-07-29 20:00] VITALS: BP 109/75
[2020-07-29] MEDS: MELATONIN 3 MG TAB PO SCH (21:33)
[2020-07-30] VITALS: BP 115/82
[2020-07-30] MEDS: HYDRAGUARD CREAM TP SCH ×2 (01:08→13:21)
[2020-07-30] MEDS: HYDROcodone/APAP 5/325 MG 1 TAB TAB PO PRN ×3 (02:11→18:12)
[2020-07-30 04:00] VITALS: BP 111/80
[2020-07-30 06:31] LABS: BASOPHILS % (AUTO) 0.2 % (0.0-2.0); EOSINOPHILS # (AUTO) 0.3 K/uL (0-0.4); EOSINOPHILS % (AUTO) 2.5 % (0.0-4.0); HEMATOCRIT 32.9 % (36-52); LYMPHOCYTES % (AUTO) 7.5 % (20.5-51.1); MEAN CORPUSCULAR HEMOGLOBIN 34 pg (27-31); MEAN CORPUSCULAR HGB CONC 33 g/dL (33-37); MEAN CORPUSCULAR VOLUME 101.1 fL (80-94); MONOCYTES # (AUTO) 0.7 K/uL (0.8-1.0); NEUTROPHILS # (AUTO) 11.9 K/uL (1.8-7.7); NEUTROPHILS % (AUTO) 84.8 % (42.2-75.2); PLATELET COUNT (AUTO) 268 K/uL (140-450); RED BLOOD CELL COUNT(AUTO) 3.25 MIL/uL (4.20-6.10); RED CELL DISTRIBUTION WIDTH 27.1 % (11.6-13.7); WHITE BLOOD COUNT (AUTO) 14.1 K/uL (4.8-10.8)
[2020-07-30 06:51] LABS: ANION GAP 10.3 (8-16); CARBON DIOXIDE 27.5 mmol/L (21-32); CREATININE 0.5 mg/dL (0.6-1.3); POTASSIUM 3.8 mmol/L (3.5-5.1); TOTAL BILIRUBIN 0.6 mg/dL (0.0-1.0)
[2020-07-30 06:53] LABS: MAGNESIUM 1.5 mg/dL (1.8-2.4); PHOSPHORUS 4.3 mg/dL (2.5-4.9)
[2020-07-30 08:00] VITALS: BP 124/88
[2020-07-30] MEDS: TAMSULOSIN 0.4 MG CAP PO SCH (08:50)
[2020-07-30] MEDS: FUROSEMIDE 20 MG TAB PO SCH (08:51)
[2020-07-30] MEDS: AMOXIL/CLAVULANATE 875/125 MG 1 TAB PO SCH ×2 (08:51→21:00)
[2020-07-30] MEDS: FAMOTIDINE 20 MG TAB PO SCH ×2 (08:52→21:01)
[2020-07-30] MEDS: levoFLOXacin 750 MG TAB PO SCH (08:52)
[2020-07-30] MEDS: MAGNESIUM OXIDE 400 MG TAB PO SCH ×2 (08:52→21:00)
[2020-07-30] MEDS: ASCORBIC ACID 500 MG TAB PO SCH ×2 (08:53→21:01)
[2020-07-30] MEDS: MULTIVITAMIN 1 TAB PO SCH (08:53)
[2020-07-30] MEDS: ZINC SULF 220 MG CAP PO SCH (08:53)
[2020-07-30 12:00] VITALS: BP 123/78
[2020-07-30] MEDS: THERAHONEY GEL 42.5 GM TP SCH (13:22)
[2020-07-30 16:00] VITALS: BP 113/76
[2020-07-30 20:00] VITALS: BP 125/77
[2020-07-30] MEDS: MELATONIN 3 MG TAB PO SCH (21:01)
[2020-07-31] VITALS: BP 130/92
[2020-07-31] MEDS: HYDRAGUARD CREAM TP SCH ×2 (01:15→13:19)
[2020-07-31] MEDS: HYDROcodone/APAP 5/325 MG 1 TAB TAB PO PRN ×2 (03:42→14:09)
[2020-07-31 04:00] VITALS: BP 138/92
[2020-07-31 05:41] LABS: BASOPHILS % (AUTO) 0.1 % (0.0-2.0); EOSINOPHILS # (AUTO) 0.4 K/uL (0-0.4); EOSINOPHILS % (AUTO) 3.6 % (0.0-4.0); HEMATOCRIT 31.5 % (36-52); HEMOGLOBIN 10.4 g/dL (12.0-18.0); LYMPHOCYTES # (AUTO) 0.9 K/uL (2.0-11.5); LYMPHOCYTES % (AUTO) 7.4 % (20.5-51.1); MEAN CORPUSCULAR HEMOGLOBIN 33 pg (27-31); MEAN CORPUSCULAR HGB CONC 33 g/dL (33-37); MEAN CORPUSCULAR VOLUME 100.2 fL (80-94); MONOCYTES # (AUTO) 0.5 K/uL (0.8-1.0); NEUTROPHILS # (AUTO) 9.9 K/uL (1.8-7.7); NEUTROPHILS % (AUTO) 84.9 % (42.2-75.2); PLATELET COUNT (AUTO) 273 K/uL (140-450); RED BLOOD CELL COUNT(AUTO) 3.14 MIL/uL (4.20-6.10); RED CELL DISTRIBUTION WIDTH 26.1 % (11.6-13.7); WHITE BLOOD COUNT (AUTO) 11.7 K/uL (4.8-10.8)
[2020-07-31 05:48] LABS: MAGNESIUM 1.6 mg/dL (1.8-2.4); PHOSPHORUS 3.8 mg/dL (2.5-4.9)
[2020-07-31 05:51] LABS: ANION GAP 7.7 (8-16); CARBON DIOXIDE 31.2 mmol/L (21-32); CREATININE 0.5 mg/dL (0.6-1.3); POTASSIUM 3.9 mmol/L (3.5-5.1); TOTAL BILIRUBIN 0.6 mg/dL (0.0-1.0)
[2020-07-31 08:00] VITALS: BP 136/93
[2020-07-31] MEDS: TAMSULOSIN 0.4 MG CAP PO SCH (08:51)
[2020-07-31] MEDS: FAMOTIDINE 20 MG TAB PO SCH (08:51)
[2020-07-31] MEDS: AMOXIL/CLAVULANATE 875/125 MG 1 TAB PO SCH (08:51)
[2020-07-31] MEDS: ASCORBIC ACID 500 MG TAB PO SCH (08:51)
[2020-07-31] MEDS: ZINC SULF 220 MG CAP PO SCH (08:51)
[2020-07-31] MEDS: MAGNESIUM OXIDE 400 MG TAB PO SCH (08:52)
[2020-07-31] MEDS: FUROSEMIDE 20 MG TAB PO SCH (08:52)
[2020-07-31] MEDS: MULTIVITAMIN 1 TAB PO SCH (08:52)
[2020-07-31] MEDS ORDERED: ROC2I IV (09:21)
[2020-07-31] MEDS ORDERED: METR500S14 IV (09:21)
[2020-07-31 10:53] VITALS: BP 121/89
[2020-07-31 12:00] VITALS: BP 133/87
[2020-07-31] MEDS: THERAHONEY GEL 42.5 GM TP SCH (13:19)
[2020-07-31 16:00] VITALS: BP 136/91
== END 2020-07-31 18:55 | DRG 853 ==
LOC: MTU 21:35
PROVIDERS: ADMIT Family Medicine; ATTEND Family Medicine
PROC: 0JB70ZZ Excision of Back Subcutaneous Tissue and Fascia, Open Approach (ICD-10-PCS; principal; 2020-07-24 13:30)
PROC: 0FP0X0Z Removal of Drainage Device from Liver, External Approach (ICD-10-PCS; 2020-07-27)
DX: A41.51 Sepsis due to Escherichia coli [E. coli] (principal); E43 Unspecified severe protein-calorie malnutrition; J18.9 Pneumonia, unspecified organism; J86.9 Pyothorax without fistula; J96.01 Acute respiratory failure with hypoxia; K75.0 Abscess of liver; I31.3 Pericardial effusion (noninflammatory); I96 Gangrene, not elsewhere classified; J91.8 Pleural effusion in other conditions classified elsewhere; N39.0 Urinary tract infection, site not specified; E87.1 Hypo-osmolality and hyponatremia; R18.8 Other ascites; R16.0 Hepatomegaly, not elsewhere classified; D45 Polycythemia vera; K80.20 Calculus of gallbladder without cholecystitis without obstruction; D64.9 Anemia, unspecified; E83.42 Hypomagnesemia; N40.0 Benign prostatic hyperplasia without lower urinary tract symptoms; E83.51 Hypocalcemia; K41.90 Unilateral femoral hernia, without obstruction or gangrene, not specified as recurrent; N28.1 Cyst of kidney, acquired; L89.150 Pressure ulcer of sacral region, unstageable; Z20.822 Contact with and (suspected) exposure to COVID-19; D73.5 Infarction of spleen; Z68.29 Body mass index [BMI] 29.0-29.9, adult; Z80.6 Family history of leukemia; Z86.718 Personal history of other venous thrombosis and embolism; Z87.891 Personal history of nicotine dependence; Z80.41 Family history of malignant neoplasm of ovary; Z98.49 Cataract extraction status, unspecified eye
CPT/HCPCS: 36415; 71045; 71260; 80048; 80053; 81001; 82150; 83036; 83605; 83690; 83735; 83880; 84100; 84439; 84443; 84484; 85025; 85610; 85730; 87081; 87086; 88304; 93005; 97110; 97112; 97116; 97530; C9113; J0696; J1100; J1644; J1650; J1940; J2001; J2250; J2405; J3010; J3475; J3490; J7030; J7060; Q9967

== ENCOUNTER 2020-12-04 10:14 | Emergency (ER) | payer BC, SELFPAY ==
[~2020-12-04] VITALS: Ht 170.2 cm; Wt 87.1 kg
[~2020-12-04 10:14] MED LIST: MAGN241.1 PO; METR500S14 IV; ROC2I IV; SPIR50TA PO; TAMS0.4C96 PO
[2020-12-04 10:24] VITALS: BP 129/84
[2020-12-04] MEDS ORDERED: CEPH-588 PO (11:27)
[2020-12-04] MEDS ORDERED: SULF-59 PO (11:27)
[2020-12-04] MEDS ORDERED: BACI1PAC6 TP (11:27)
== END 2020-12-04 11:35 | disposition home or self-care (01) ==
LOC: MED 10:14
DX: S80.861A Insect bite (nonvenomous), right lower leg, initial encounter (principal); L03.115 Cellulitis of right lower limb; Z79.899 Other long term (current) drug therapy; W57.XXXA Bitten or stung by nonvenomous insect and other nonvenomous arthropods, initial encounter; Y93.89 Activity, other specified; Y92.89 Other specified places as the place of occurrence of the external cause; Y99.8 Other external cause status
CPT/HCPCS: 99283